=== PATIENT | female | born 1985 | race Caucasian/White ===

== ENCOUNTER 2016-04-04 20:33 | Emergency (ER) | payer MEDICAID ==
[~2016-04-04] VITALS: Ht 182.9 cm; Wt 149.7 kg
[~2016-04-04 20:33] MED LIST: AMOX500C2 PO; ARIP5TAB20 PO; ATOR10TA66 PO; AZIT-21 PO; CLONIDINE; CPR500T PO; DVL500TEC PO; HYDR-3816 PO; METR500T PO; QTP100T; TRZ100T PO; ZIPR40CA12 PO
--- OUTSIDE RECORDS SUMMARY | 2016-04-04 20:37 | XMS REPORT | Continuity of Care Document ---
Author Author [facility] Organization [facility] Address Unknown Phone Unavailable Care Team Providers Care Big Data Solutions Architect Name Role Phone CHAY ORDONEZ DO PCP Insurance Providers Payer Name Policy Number Subscriber Name Relationship [facility] [id number] Sveta Jaime 18 Self / Same As Patient Advance Directives Directive Response Recorded Date/Time Advance Directives No 07/07/14 8:16pm Resuscitation Status Full Code 07/07/14 8:16pm Problems Medical Problems Problem Onset Date Status Dental caries Unknown Active Gingivitis, acute Unknown Active Medications Medication Dose Route Sig Days/Qty Instructions Order Date Discontinued Date Status Divalproex Sodium 1 Each PO THREE TIMES A DAY 11/12/08 Active Quetiapine Fumarate 11/12/08 03/05/10 Discontinued [Clonidine] 11/12/08 03/05/10 Discontinued Azithromycin (Zpak) 0 PO Z-HARRISON 6 Qty 03/05/10 07/07/14 Discontinued Ciprofloxacin 1 Tab PO TWICE A DAY 7 Days 01/27/11 07/07/14 Discontinued Metronidazole 1 Each PO TWICE A DAY 7 Days 01/27/11 07/07/14 Discontinued Atorvastatin Calcium 1 Tab PO DAILY 30 Qty 07/07/14 Active Trazodone Hcl 1 Tab PO TWICE A DAY 60 Qty 07/07/14 Active Ziprasidone Hcl 1 Cap PO DAILY 30 Qty 07/07/14 Active Amoxicillin 1 Each PO THREE TIMES A DAY 21 Qty 07/07/14 Active Hydrocodone Bit/Acetaminophen 1 Tab PO EVERY 6 HOURS PRN PAIN 12 Qty Active Social History Social History Problem Response Recorded Date/Time Alcohol Use Denies Use 07/07/2014 8:16pm Recreational Drug Use No 07/07/2014 8:16pm Recent Foreign Travel No 07/07/2014 8:16pm Recent Infectious Disease Exposure No 07/07/2014 8:16pm Smoking Status Never a Smoker 07/07/2014 8:16pm Do you dip or chew tobacco? No 07/07/2014 8:16pm Query Response Start Date Stop Date Smoking Status Never a Smoker Hospital Discharge Instructions No hospital discharge instructions. Plan of Care No plan of care. Functional Status No functional status results. Allergies, Adverse Reactions, Alerts Allergen Type Severity Reaction Status Last Updated No Known Drug Allergies Active 11/12/08 Immunizations No immunization records. Vital Signs Acute Vital Signs Vital Response Date/Time Temperature (Fahrenheit) 99.4 degrees F (97.6 - 99.5) Temperature (Calculated Celsius) 37.61702 degrees C (36.4 - 37.5) Temperature Source Temporal Pulse Rate (adult) 122 bpm (60 - 90) Respiratory Rate 16 bpm (12 - 24) O2 Sat by Pulse Oximetry 97 % (88 - 100) Blood Pressure 156/103 mm Hg Pain Pain Intensity 6 Height (Feet) 6 feet Height (Inches) 0 inches Height (Calculated Centimeters) 182.044679 cm Weight (Pounds) 325 pounds Weight (Calculated Kilograms) 147.897595 kilograms Calculated BMI 44.07 Results No known relevant diagnostic tests, laboratory data and/or discharge summary. Procedures No known history of procedures. Encounters Encounter Location Date/Time Registered Emergency Room [facility] 07/07/14 7:50pm Recent Diagnosis
[2016-04-04 20:44] VITALS: BP 140/90
== END 2016-04-04 21:45 | disposition left against medical advice (07) ==
LOC: EDUNIT# 20:33 → ER 20:34
DX: R09.81 Nasal congestion (principal); F17.210 Nicotine dependence, cigarettes, uncomplicated; Z53.21 Procedure and treatment not carried out due to patient leaving prior to being seen by health care provider
CPT/HCPCS: 99282

== ENCOUNTER 2016-11-14 22:50 | Emergency (ER) | payer MEDICAID ==
[~2016-11-14] VITALS: Ht 182.9 cm; Wt 135.2 kg
--- OUTSIDE RECORDS SUMMARY | 2016-11-14 22:55 | XMS REPORT ---
Author Author LIDA ROMAN Organization [facility] Address [address] [place] [address] Care Team Providers Care Repairer Kiln Car Name Role Phone LIDA ROMAN Unavailable PROBLEMS Type Condition ICD9-CM Code [id number] Code Onset Dates Condition Status SNOMED Code Problem Bipolar disorder, unspecified F31.9 Active [id number] ALLERGIES Substance Reaction Event Type Date Status N.K.D.A. Unknown Non Drug Allergy Jan, Unknown SOCIAL HISTORY No smoking Hx information available PLAN OF CARE Activity Details Follow Up 4 Weeks Reason: VITAL SIGNS Height 72.0 in 2016 Weight 310.0 lbs 2016 Heart Rate 80 bpm 2016 Respiratory Rate 20 2016 BMI 42.04 kg/m2 2016 Blood pressure systolic 150 mmHg 2016 Blood pressure diastolic 99 mmHg 2016 MEDICATIONS Medication Instructions Dosage Frequency Start Date End Date Duration Status Abilify 5 mg Orally Once a day 1 tablet 24h Jan, Active RESULTS No Results PROCEDURES Procedure Date Ordered Related Diagnosis Body Site MH Office Visit, Est Pt., Level 3 2016 IMMUNIZATIONS No Known Immunizations
--- OUTSIDE RECORDS SUMMARY | 2016-11-14 22:55 | XMS REPORT | Continuity of Care Document ---
Author Author [facility] Organization [facility] Address Unknown Phone Unavailable Allergies Active Description Code Type Severity Reaction Onset Reported/Identified Relationship to Patient Clinical Status Yes No Known Drug Allergies [id number] Drug Allergy Mild N/A 11/12/2008 Medications Problems Date Dx Coded Attending Type Code Diagnosis Diagnosed By 03/05/2010 Ot 465.9 03/05/2010 Ot 786.2 01/27/2011 Ot 599.0 URIN TRACT INFECTION NOS 01/27/2011 Ot 789.00 ABDOMINAL PAIN, UNSPECIFIED SITE 01/22/2014 CHAY ORDONEZ DO Ot 296.80 01/22/2014 GELCHAY CHRISTENSEN DO Ot 780.39 07/07/2014 CHAY ORDONEZ DO Ot 296.80 07/07/2014 GELLENDER DOCHAY A Ot 780.39 07/07/2014 VAN ARMENTA, CRISELDA Aguilar Ot 521.00 UNSPEC DENTAL CARIES 07/07/2014 CRISELDA ARAUJO MD Ot 523.00 ACUTE GINGIVITIS, PLAQUE INDUCED 07/07/2014 CRISELDA ARAUJO MD Ot 525.9 DENTAL DISORDER NOS 02/12/2016 GELCHAY CHRISTENSEN DO Ot 296.80 BIPOLAR DISORDER, UNSPECIFIED 02/12/2016 GELCHAY CHRISTENSEN DO Ot 780.39 OTHER CONVULSIONS 02/12/2016 TONIA ARMENTA, FRANKY Vaz Ot M54.6 PAIN IN THORACIC SPINE 02/12/2016 TONIA ARMENTA, FRANKY T Ot Z87.891 PERSONAL HISTORY OF NICOTINE DEPENDENCE 02/13/2016 FRANKY RANDALL MD T Ot M54.6 PAIN IN THORACIC SPINE 02/13/2016 FRANKY RANDALL MD T Ot Z87.891 PERSONAL HISTORY OF NICOTINE DEPENDENCE 04/04/2016 JUVENCIO THOMAS Ot F17.210 NICOTINE DEPENDENCE, CIGARETTES, UNCOMPL 04/04/2016 JUVENCIO THOMAS Ot R09.81 NASAL CONGESTION 04/04/2016 JUVENCIO THOMAS Ot Z53.21 PROC/TRTMT NOT CRD OUT D/T PT LV BEF SEE 04/06/2016 JUVENCIO THOMAS Ot F17.210 NICOTINE DEPENDENCE, CIGARETTES, UNCOMPL 04/06/2016 JUVENCIO THOMAS Ot R09.81 NASAL CONGESTION 04/06/2016 JUVENCIO THOMAS Ot Z53.21 PROC/TRTMT NOT CRD OUT D/T PT LV BEF SEE Procedures Results Encounters ACCT No. Visit Date/Time Discharge Status Pt. Type Provider Facility Loc./Unit Complaint [id number] 04/04/2016 20:34:00 2016 21:45:00 DIS Emergency JUVENCIO THOMAS [facility] ER CONGESTION [id number] 02/12/2016 00:06:00 2015 02:30:00 DIS Emergency TONIA ARMENTA, FRANKY Vaz [facility] ER SHARP PAIN IN MIDDLE OF BACK [id number] 07/07/2014 19:50:00 2014 21:14:00 DIS Emergency VAN ARMENTA, CRISELDA Aguilar [facility] ER DENTAL PAIN [id number] 01/02/2014 09:02:00 2013 23:59:59 CLS Outpatient CHAY ORDONEZ DO [facility] LAB BIPOLAR [id number] 01/02/2014 09:02:00 Document Registration [id number] 01/27/2011 14:44:00 Document Registration [id number] 03/05/2010 12:39:00 Document Registration
[2016-11-14] MEDS ORDERED: KETOROLAC 60 MG/2 ML VIAL IM ONE (23:15)
[2016-11-14] MEDS ORDERED: ORPHENADRINE 60 MG/2 ML (NORFLEX) AMP IM ONE (23:15)
[2016-11-15] MEDS ORDERED: PRD20T PO (00:04)
[2016-11-15] MEDS ORDERED: CYCL10TA9 PO (00:04)
--- NOTE | 2016-11-15 00:04 | ED Back Pain ---
General Chief Complaint: Back Problems Stated Complaint: MID BACK PAIN Nursing Triage Note: PT C/O MID LOW BACK PAIN SINCE YESTERDAY. SHE DENIES ANY INJURY. Nursing Sepsis Screen: No Definite Risk Source of Information: Patient Exam Limitations: No Limitations History of Present Illness Time Seen by Provider: 22:51 Initial Comments This 31-year-old woman presents to the emergency room with complaints of lower back pain that started yesterday and has worsened night. She rates the pain as 9/10. She denies any known injury. No dysuria or other symptoms. She took 600 mg ibuprofen about 3 hours ago which was not very helpful. Allergies and Home Medications Allergies Coded Allergies: No Known Drug Allergies (Unverified , 11/12/08) Home Medications Cyclobenzaprine HCl 10 Mg Tablet, 10 MG PO TID PRN for SPASMS, #10 Prescribed by: FRANKY VINSON on 11/15/16 0004 Prednisone 20 Mg Tab, 20 MG PO DAILY, #3 Prescribed by: FRANKY VINSON on 11/15/16 0004 Constitutional: no symptoms reported EENTM: no symptoms reported Respiratory: no symptoms reported Cardiovascular: no symptoms reported Gastrointestinal: no symptoms reported Genitourinary: no symptoms reported : No Musculoskeletal: see HPI Skin: no symptoms reported Psychiatric/Neurological: No Symptoms Reported Past Fktihqr-Wulnud-Pbjjoo Hx Patient Social History Alcohol Use: Denies Use Recreational Drug Use: No Smoking Status: Former Smoker Type Used: Cigarettes Former Smoker, Quit: Nov 05, 2013 2nd Hand Smoke Exposure: No Recent Foreign Travel: No Contact w/Someone Who Travel: No Recent Infectious Disease Expo: No Recent Hopitalizations: No Physical Abuse: No Sexual Abuse: No Immunizations Up To Date Tetanus Booster (TDap): Unknown Seasonal Allergies Seasonal Allergies: No Surgeries History of Surgeries: No Respiratory History of Respiratory Disorde: Yes Respiratory Disorders: Asthma Cardiovascular History of Cardiac Disorders: Yes Cardiac Disorders: High Cholesterol Neurological History of Neurological Disord: No Neurological Disorders: Seizure Disorder Gastrointestinal History of Gastrointestinal Di: No Musculoskeletal History of Musculoskeletal Dis: No Endocrine History of Endocrine Disorders: No Cancer History of Cancer: No Psychosocial History of Psychiatric Problem: Yes Behavioral Health Disorders: Anxiety Suicide Risk Score: 0 Integumentary History of Skin or Integumenta: No Blood Transfusions History of Blood Disorders: No Adverse Reaction to a Blood Tr: No Family Medical History Significant Family History: No Pertinent Family Hx Physical Exam Vital Signs Vital Sign - Last 12Hours 11/14/16 23:04 Temp 97.2 Pulse 90 Resp 16 B/P (MAP) 168/89 O2 Delivery Room Air Capillary Refill : Less Than 3 Seconds General Appearance: No Apparent Distress, WD/WN HEENT: Normal ENT Inspection Neck: Normal Inspection Cardiovascular: Regular Rate, Rhythm, No Edema, No Murmur Respiratory: Lungs Clear, Normal Breath Sounds, No Accessory Muscle Use, No Respiratory Distress Gastrointestinal: Normal Bowel Sounds, Non Tender, Soft Back: Normal Inspection, Vertebral Tenderness (lower lumbar spine and right SI joint area) Extremity: Normal Inspection Neurologic/Psychiatric: Alert, Oriented x3, No Motor/Sensory Deficits, Normal Mood/Affect, behavioral health case manager II-XII Norm as Tested Skin: Normal Color, Warm/Dry Progress/Results/Core Measures Results/Orders My Orders Orders - FRANKY RANDALL MD Ketorolac Injection (Toradol Injection) (11/14/16 23:15) Orphenadrine Injection (Norflex Injectio (11/14/16 23:15) Medications Given in ED Current Medications Medications Dose Ordered Sig/Garth Route Start Time Stop Time Status Last Admin Dose Admin Ketorolac Tromethamine 60 mg ONCE ONCE IM 11/14/16 23:15 11/14/16 23:16 DC 11/14/16 23:26 60 MG Orphenadrine Citrate 60 mg ONCE ONCE IM 11/14/16 23:15 11/14/16 23:16 DC 11/14/16 23:25 60 MG Vital Signs/I&O Vital Sign - Last 12Hours 11/14/16 23:04 Temp 97.2 Pulse 90 Resp 16 B/P (MAP) 168/89 O2 Delivery Room Air Blood Pressure Mean: 115 Progress Note : Progress Note Patient received injections of Toradol and Norflex which reduced her pain to 5/ 10. She believes she cannot return home and rest. Departure Impression Impression: Primary Impression: Sacroiliac joint pain Additional Impression: Lower back pain Qualified Codes: M54.5 - Low back pain Disposition: 01 HOME, SELF-CARE Condition: Improved Departure-Patient Inst. Decision time for Depature: 00:02 Referrals: CHAY ORDONEZ DO (PCP/Family) Primary Care Physician Patient Instructions: Sacroiliac Joint Pain, Low Back Pain (DC) Add. Discharge Instructions: Tonight you may take Tylenol (acetaminophen) up to 1000 mg every 6 hours as needed. Tomorrow you may resume taking ibuprofen up to 800 mg every 8 hours as needed for pain along with the Tylenol. Fill your prescriptions for cyclobenzaprine and prednisone tomorrow if you have not improved satisfactorily. Follow-up with Dr. Ordonez if you have persistent problems. Return to the ER if symptoms worsen. All discharge instructions reviewed with patient and/or family. Voiced understanding. Scripts Cyclobenzaprine HCl (Cyclobenzaprine HCl) 10 Mg Tablet 10 MG PO TID Y for SPASMS, #10 TAB Prov: FRANKY RANDALL MD 11/15/16 Prednisone (Prednisone) 20 Mg Tab 20 MG PO DAILY, #3 TAB Prov: FRANKY RANDALL MD 11/15/16 FRANKY RANDALL MD Nov 15, 2016 00:04
[2016-11-15 00:07] VITALS: BP 168/89
== END 2016-11-15 00:07 | disposition home or self-care (01) ==
LOC: EDUNIT# 22:50 → ER 22:51
DX: M53.3 Sacrococcygeal disorders, not elsewhere classified (principal); M54.5 Low back pain; J45.909 Unspecified asthma, uncomplicated; E78.00 Pure hypercholesterolemia, unspecified; G40.909 Epilepsy, unspecified, not intractable, without status epilepticus; F41.9 Anxiety disorder, unspecified; Z87.891 Personal history of nicotine dependence
CPT/HCPCS: 96372; 99284

== ENCOUNTER 2017-03-14 12:26 | Emergency (ER) | payer MEDICAID ==
[~2017-03-14] VITALS: Ht 185.4 cm; Wt 158.8 kg
[~2017-03-14 12:26] MED LIST changes: +CYCL10TA9 PO; +PRD20T PO
--- OUTSIDE RECORDS SUMMARY | 2017-03-14 12:32 | XMS REPORT | Continuity of Care Document ---
Author Author [facility] Organization [facility] Address Unknown Phone Unavailable Allergies Active Description Code Type Severity Reaction Onset Reported/Identified Relationship to Patient Clinical Status Yes No Known Drug Allergies [id number] Drug Allergy Mild N/A 11/12/2008 Medications There is no data. Problems Date Dx Coded Attending Type Code Diagnosis Diagnosed By 03/05/2010 Ot 465.9 03/05/2010 Ot 786.2 01/27/2011 Ot 599.0 URIN TRACT INFECTION NOS 01/27/2011 Ot 789.00 ABDOMINAL PAIN, UNSPECIFIED SITE 01/22/2014 CHAY ORDONEZ DO Ot 296.80 01/22/2014 CHAY ORDONEZ DO Ot 780.39 07/07/2014 CHAY ORDONEZ DO Ot 296.80 07/07/2014 CHAY ORDONEZ DO Ot 780.39 07/07/2014 CRISELDA ARAUJO MD Ot 521.00 UNSPEC DENTAL CARIES 07/07/2014 CRISELDA ARAUJO MD Ot 523.00 ACUTE GINGIVITIS, PLAQUE INDUCED 07/07/2014 CRISELDA ARAUJO MD Ot 525.9 DENTAL DISORDER NOS 02/12/2016 CHAY ORDONEZ DO Ot 296.80 BIPOLAR DISORDER, UNSPECIFIED 02/12/2016 CHAY ORDONEZ DO Ot 780.39 OTHER CONVULSIONS 02/12/2016 FRANKY RANDALL MD Ot M54.6 PAIN IN THORACIC SPINE 02/12/2016 FRANKY RANDALL MD T Ot Z87.891 PERSONAL [...] CRD OUT D/T PT LV BEF SEE 11/14/2016 CHAY ORDONEZ DO Ot 296.80 BIPOLAR DISORDER, UNSPECIFIED 11/14/2016 CHAY ORDONEZ DO Ot 780.39 OTHER CONVULSIONS 11/15/2016 TONIA ARMENTA, FRANKY Vaz Ot E78.00 PURE HYPERCHOLESTEROLEMIA, UNSPECIFIED 11/15/2016 FRANKY RANDALL MD Ot F41.9 ANXIETY DISORDER, UNSPECIFIED 11/15/2016 FRANKY RANDALL MD Ot G40.909 EPILEPSY, UNSP, NOT INTRACTABLE, WITHOUT 11/15/2016 TONIA ARMENTA, FRANKY Vaz Ot J45.909 UNSPECIFIED ASTHMA, UNCOMPLICATED 11/15/2016 FRANKY RANDALL MD Ot M53.3 SACROCOCCYGEAL DISORDERS, NOT ELSEWHERE 11/15/2016 FRANKY RANDALL MD Ot M54.5 LOW BACK PAIN 11/15/2016 FRANKY RANDALL MD Ot Z87.891 PERSONAL HISTORY OF NICOTINE DEPENDENCE Procedures There is no data. Results There is no data. Encounters ACCT No. Visit Date/Time Discharge Status Pt. Type Provider Facility Loc./Unit Complaint [id number] 11/14/2016 22:51:00 11/15/2016 00:07:00 DIS Emergency FRNAKY RANDALL MD [facility] ER MID BACK PAIN [id number] 04/04/2016 20:34:00 04/04/2016 21:45:00 DIS Emergency JUVENCIO THOMAS [facility] ER CONGESTION [id number] 02/12/2016 00:06:00 02/12/2016 02:30:00 DIS Emergency FRANKY RANDALL MD [facility] ER SHARP PAIN IN MIDDLE OF BACK [id number] 07/07/2014 19:50:00 07/07/2014 21:14:00 DIS Emergency CRISELDA ARAUJO MD [facility] ER DENTAL PAIN [id number] 01/02/2014 09:02:00 01/02/2014 23:59:59 [facility] Outpatient CHAY ORDONEZ DO [facility] LAB BIPOLAR [id number] 01/02/2014 09:02:00 Document Registration [id number] 01/27/2011 14:44:00 Document Registration [id number] 03/05/2010 12:39:00 Document Registration
--- NOTE | 2017-03-14 14:44 | ED Cough/URI ---
General Chief Complaint: Fever-Adult/Adol Stated Complaint: FEVER HEADACHE Nursing Triage Note: PATIENT STATES SHE HAS HAD A FEVER OF 99.0 AND HEADACHE X3 DAYS. SHE HAS ALSO HAD A COUGH AND RUNNY NOSE. NO OTHER SYMPTOMS. NO CHILLS. Source: patient Exam Limitations: no limitations History of Present Illness Date Seen by Provider: Mar 14, 2017 Time Seen by Provider: 14:42 Initial Comments To ER with reports of low-grade fevers, headaches worsened by coughing, productive cough, runny nose for a few days. Timing/Duration: just prior to arrival Severity/Quality: moderate Associated Symptoms: cough Allergies and Home Medications Allergies Coded Allergies: No Known Drug Allergies (Unverified , 11/12/08) Home Medications Cyclobenzaprine HCl 10 Mg Tablet, 10 MG PO TID PRN for SPASMS, #10 Prescribed by: FRANKY VINSON on 11/15/16 0004 Prednisone 20 Mg Tab, 20 MG PO DAILY, #3 Prescribed by: FRANKY VINSON on 11/15/16 0004 Constitutional: see HPI EENTM: see HPI, nose congestion Respiratory: see HPI, cough Cardiovascular: no symptoms reported Genitourinary: no symptoms reported Skin: no symptoms reported Psychiatric/Neurological: No Symptoms Reported Past Pfdufnw-Cushlp-Duwswd Hx Patient Social History Alcohol Use: Denies Use Recreational Drug Use: No Smoking Status: Never a Smoker Type Used: Cigarettes Former Smoker, Quit: Nov 05, 2013 2nd Hand Smoke Exposure: No Recent Foreign Travel: No Contact w/Someone Who Travel: No Recent Infectious Disease Expo: No Recent Hopitalizations: No Immunizations Up To Date Tetanus Booster (TDap): Unknown Seasonal Allergies Seasonal Allergies: No Surgeries History of Surgeries: No Respiratory History of Respiratory Disorde: Yes Respiratory Disorders: Asthma Cardiovascular History of Cardiac Disorders: Yes Cardiac Disorders: High Cholesterol Neurological History of Neurological Disord: No Neurological Disorders: Seizure Disorder Gastrointestinal History of Gastrointestinal Di: No Musculoskeletal History of Musculoskeletal Dis: No Endocrine History of Endocrine Disorders: No Cancer History of Cancer: No Psychosocial History of Psychiatric Problem: Yes Behavioral Health Disorders: Anxiety Integumentary History of Skin or Integumenta: No Blood Transfusions History of Blood Disorders: No Adverse Reaction to a Blood Tr: No Family Medical History Significant Family History: No Pertinent Family Hx Physical Exam Vital Signs Vital Sign - Last 12Hours 03/14/17 03/14/17 12:41 14:45 Temp 98.5 Pulse 83 Resp 20 B/P (MAP) 138/79 (98) Pulse Ox 96 O2 Delivery Room Air Capillary Refill : Less Than 3 Seconds General Appearance: WD/WN, no apparent distress Eyes: Bilateral Eye Normal Inspection, Bilateral Eye PERRL, Bilateral Eye EOMI HEENT: PERRL/EOMI, normal ENT inspection Neck: non-tender, full range of motion Respiratory: normal breath sounds, no respiratory distress, no accessory muscle use Cardiovascular: regular rate, rhythm, no murmur Gastrointestinal: non tender, soft Extremities: normal range of motion, non-tender Neurologic/Psychiatric: alert, normal mood/affect, oriented x 3 Skin: normal color, warm/dry Progress/Results/Core Measures Suspected Sepsis Recent Fever Within 48 Hours: No Infection Criteria Present: None New/Unexplained Altered Menta: No Sepsis Screen: No Definite Risk Sepsis Diagnosis: SIRS Temperature:98.5 Pulse: 83 Respiratory Rate: 20 Blood Pressure 138 /79 Mean: 98 Results/Orders Micro Results Microbiology 03/14/17 Influenza Types A,B Antigen (ELIZABETH) - Final, Complete My Orders Orders - AVERY TORRES APRN Chest Pa/Lat (2 View) (03/14/17 14:27) Influenza A And B Antigens (03/14/17 14:27) Albuterol/Ipra Inhalation Soln (Duoneb I (03/14/17 14:45) Svn Sm Volume Nebulizer Rt-Rfs (03/14/17 14:41) Medications Given in ED Current Medications Medications Dose Ordered Sig/Garth Route Start Time Stop Time Status Last Admin Dose Admin Albuterol/ Ipratropium 3 ml ONCE ONCE INH 03/14/17 14:45 03/14/17 14:46 DC 03/14/17 14:52 3 ML Vital Signs/I&O Vital Sign - Last 12Hours 03/14/17 03/14/17 12:41 14:45 Temp 98.5 Pulse 83 Resp 20 B/P (MAP) 138/79 (98) Pulse Ox 96 O2 Delivery Room Air Capillary Refill : Less Than 3 Seconds Blood Pressure Mean: 98 Departure Impression Impression: Primary Impression: Upper respiratory infection Disposition: 01 HOME, SELF-CARE Condition: Stable Departure-Patient Inst. Decision time for Depature: 15:50 Referrals: CHAY ORDONEZ DO (PCP/Family) Primary Care Physician Patient Instructions: VIRAL SYNDROME Add. Discharge Instructions: 1. Tylenol and Motrin for fever and chills 2. Cough medication as directed Scripts D-Methorphan Hb/P-Epd HCl/Bpm (Bromfed Dm Cough Syrup) 118 Ml Syrup 5 ML PO Q4H Y for COUGH, #100 ML Prov: AVERY TORRES APRN 03/14/17 AVERY TORRES APRN Mar 14, 2017 14:44
[2017-03-14] MEDS ORDERED: RT-ALBUTEROL/IPRATROPIUM 3 ML (DUONEB) VIAL INH ONE (14:45)
--- NOTE | 2017-03-14 15:34 | Diagnostic Imaging Report ---
INDICATION: Fever and headache. TIME OF EXAM: 03:33 p.m. COMPARISON: No prior studies are available for comparison. FINDINGS: The heart size is normal. The lungs are clear. No pleural effusion or pneumothorax is identified. The pulmonary vascularity is normal. IMPRESSION: No acute abnormality detected. Dictated by: Dictated on workstation # [id number]
[2017-03-14 15:50] VITALS: BP 138/79
[2017-03-14] MEDS ORDERED: D-ME118S33 PO (15:51)
== END 2017-03-14 15:53 | disposition home or self-care (01) ==
LOC: EDUNIT# 12:26 → ER 12:28
DX: J06.9 Acute upper respiratory infection, unspecified (principal); J45.909 Unspecified asthma, uncomplicated; E78.00 Pure hypercholesterolemia, unspecified; G40.909 Epilepsy, unspecified, not intractable, without status epilepticus; F41.9 Anxiety disorder, unspecified; Z77.22 Contact with and (suspected) exposure to environmental tobacco smoke (acute) (chronic)
CPT/HCPCS: 71046; 87804; 94640; 99282

== ENCOUNTER 2017-08-05 15:03 | Emergency (ER) | payer MEDICAID ==
[~2017-08-05] VITALS: Ht 185.4 cm; Wt 158.8 kg
[~2017-08-05 15:03] MED LIST changes: +D-ME118S33 PO
[2017-08-05] MEDS ORDERED: KETOROLAC 60 MG/2 ML VIAL IM STA (15:48)
[2017-08-05] MEDS ORDERED: HYDROcodone/APAP 7.5 MG/325 MG (LORTAB, LORCET PLUS) TABLET PO STA (15:48)
[2017-08-05] MEDS ORDERED: ORPHENADRINE 60 MG/2 ML (NORFLEX) AMP IM STA (15:48)
--- NOTE | 2017-08-05 15:56 | ED Neck-Back Pain/Injury ---
General Chief Complaint: Upper Extremity Stated Complaint: R SHOULDER/NECK PAIN Nursing Triage Note: COMPLAINT OF SHOULDER PAIN RADIATING UP INTO NECK. PT CAN NOT MOVE NECK. Nursing Sepsis Screen: No Definite Risk Source of Information: Patient Exam Limitations: No Limitations History of Present Illness Date Seen by Provider: Aug 05, 2017 Time Seen by Provider: 15:40 Initial Comments Here with complaint of muscular pain from the right shoulder and neck area on the right side. She has a variety of different muscle pains along her back and neck. This one has been a little bit more persistent. She is currently out of her muscle relaxers. Denies any recent injury. Onset yesterday. She has taken ibuprofen 800 mg and that is not helping with the last dose this morning. Denies fever or chills. Denies nausea or vomiting. Location: Paraspinous Muscles (right side of the neck) Timing/Duration: 24 Hours Severity: Moderate Pain/Injury Location: Neck Modifying Factors: Improves With Immobilization; Worse With Movement Associated Symptoms: muscle spasms; No fever, No weakness, No sensory/motor loss Allergies and Home Medications Allergies Coded Allergies: No Known Drug Allergies (Unverified , 11/12/08) Home Medications Cyclobenzaprine HCl 10 Mg Tablet, 10 MG PO TID PRN for SPASMS Prescribed by: FRANKY VINSON on 11/15/16 0004 D-Methorphan Hb/P-Epd HCl/Bpm 118 Ml Syrup, 5 ML PO Q4H PRN for COUGH Prescribed by: AVERY TORRES on 03/14/17 1551 Prednisone 20 Mg Tab, 20 MG PO DAILY Prescribed by: FRANKY VINSON on 11/15/16 0004 Patient Home Medication List Home Medication List Reviewed: Yes Constitutional: see HPI; No chills, No fever Respiratory: No short of breath, No wheezing Cardiovascular: No chest pain, No edema Gastrointestinal: No abdominal pain, No nausea, No vomiting Genitourinary: no symptoms reported Musculoskeletal: see HPI, muscle pain, muscle stiffness; No muscle weakness; neck pain Skin: no symptoms reported Psychiatric/Neurological: Denies Numbness, Denies Tremors, Denies Weakness All Other Systems Reviewed Negative Unless Noted: Yes Past Sbzsund-Nfrxom-Icmvei Hx Past Med/Social Hx: Reviewed Nursing Past Med/Soc Hx Patient Social History Alcohol Use: Denies Use Recreational Drug Use: No Smoking Status: Current Everyday Smoker Type Used: Cigarettes Former Smoker, Quit: Nov 05, 2013 2nd Hand Smoke Exposure: No Recent Foreign Travel: No Contact w/Someone Who Travel: No Recent Infectious Disease Expo: No Recent Hopitalizations: No Immunizations Up To Date Tetanus Booster (TDap): Unknown Seasonal Allergies Seasonal Allergies: No Past Medical History Surgeries: No Respiratory: Yes Asthma Cardiac: Yes High Cholesterol Neurological: No Seizure Disorder : No Gastrointestinal: No Musculoskeletal: No Endocrine: No Cancer: No Psychosocial: Yes Anxiety Integumentary: No Blood Disorders: No Adverse Reaction/Blood Tranf: No Family Medical History Reviewed Nursing Family Hx No Pertinent Family Hx Physical Exam Vital Signs Vital Signs - First Documented 08/05/17 15:12 Temp 99.4 Pulse 85 Resp 20 B/P (MAP) 161/98 (119) Pulse Ox 97 O2 Delivery Room Air Capillary Refill : NONE General Appearance: No Apparent Distress, WD/WN Neck: Limited Range of Motion; No Lymphadenopathy (L), No Lymphadenopathy (R); Tender Lateral; No Tender Midline; Other (tender along the musculature on the right side of the neck and the base of the skull to the shoulder attachment. Spasms noted.) Cardiovascular: Regular Rate, Rhythm, No Murmur Respiratory: Lungs Clear, Normal Breath Sounds Gastrointestinal: Non Tender, Soft Back: Normal Inspection, No CVA Tenderness, No Vertebral Tenderness Neurologic/Psychiatric: Alert, Oriented x3 Skin: Normal Color, Warm/Dry Progress/Results/Core Measures Results/Orders My Orders Orders - CRISELDA ARAUJO MD Hydrocodone/Apap 7.5/325 Tab (Lortab 7. (08/05/17 15:48) Ketorolac Injection (Toradol Injection) (08/05/17 15:48) Orphenadrine Injection (Norflex Injectio (08/05/17 15:48) Vital Signs/I&O 08/05/17 15:12 Temp 99.4 Pulse 85 Resp 20 B/P (MAP) 161/98 (119) Pulse Ox 97 O2 Delivery Room Air Blood Pressure Mean: 119 Progress Progress Note : Progress Note Seen and evaluated. Toradol 60 mg IM, Norflex 60 mg IM and hydrocodone 7.5 mg by mouth. Discharged home with return precautions. Patient verbalize understanding instructions and agreement with plan. Departure Impression Primary Impression: Cervical radiculopathy, acute Additional Impression: Cervical muscle strain Qualified Codes: S16.1XXA - Strain of muscle, fascia and tendon at neck level , initial encounter Disposition: 01 HOME, SELF-CARE Condition: Stable Admissions Decision to Admit Reason: Admit from ER (General) Decision to Admit/Date: Aug 05, 2017 Time/Decision to Admit Time: 16:07 Departure-Patient Inst. Referrals: CHAY ORDONEZ DO (PCP/Family) Primary Care Physician Patient Instructions: Cervical Muscle Strain (DC), Radiculopathy (DC) Add. Discharge Instructions: All discharge instructions reviewed with patient and/or family. Voiced understanding. You may continue ibuprofen 800 mg every 8 hours as needed for pain. You may take Tylenol 1000 mg every 8 hours as needed for pain. Take prescribed medications as directed. Follow-up with Dr. Ordonez on Tuesday. Return for worse pain, fever, vomiting, weakness, breathing problems or other concerns as needed. Scripts Cyclobenzaprine HCl (Cyclobenzaprine HCl) 10 Mg Tablet 10 MG PO Q8H PRN for SPASMS, #15 TAB 0 Refills Prov: CRISELDA ARAUJO MD 08/05/17 CRISELDA ARAUJO MD Aug 05, 2017 15:55
[2017-08-05] MEDS ORDERED: CYCL10TA9 PO (16:09)
[2017-08-05 16:16] VITALS: BP 161/98
== END 2017-08-05 16:17 | disposition home or self-care (01) ==
LOC: EDUNIT# 15:03 → ER 15:04
DX: S16.1XXA Strain of muscle, fascia and tendon at neck level, initial encounter (principal); M54.12 Radiculopathy, cervical region; J45.909 Unspecified asthma, uncomplicated; E78.00 Pure hypercholesterolemia, unspecified; F41.9 Anxiety disorder, unspecified; G40.909 Epilepsy, unspecified, not intractable, without status epilepticus; Z87.891 Personal history of nicotine dependence; Z79.52 Long term (current) use of systemic steroids; X58.XXXA Exposure to other specified factors, initial encounter
CPT/HCPCS: 99282

== ENCOUNTER 2017-12-05 12:52 | Emergency (ER) | payer MEDICAID ==
[~2017-12-05] VITALS: Ht 182.9 cm; Wt 113.4 kg
--- OUTSIDE RECORDS SUMMARY | 2017-12-05 12:58 | XMS REPORT | Continuity of Care Document ---
Author Author [facility] Organization [facility] Address Unknown Phone Unavailable Allergies Active Description Code Type Severity Reaction Onset Reported/Identified Relationship to Patient Clinical Status Yes No Known Drug Allergies [id number] Drug Allergy Mild N/A 11/12/2008 Medications There [...] BIPOLAR DISORDER, UNSPECIFIED 11/14/2016 CHAY ORDONEZ DO A Ot 780.39 OTHER CONVULSIONS 11/15/2016 TONIA ARMENTA, FRANKY Vaz Ot E78.00 PURE HYPERCHOLESTEROLEMIA, UNSPECIFIED 11/15/2016 TONIA ARMENTA, FRANKY Vaz Ot F41.9 ANXIETY DISORDER, UNSPECIFIED 11/15/2016 TONIA ARMENTA, FRANKY Vaz Ot G40.909 EPILEPSY, UNSP, NOT INTRACTABLE, WITHOUT 11/15/2016 TONIA ARMENTA, FRANKY Vaz Ot J45.909 UNSPECIFIED ASTHMA, UNCOMPLICATED 11/15/2016 TONIA ARMENTA, FRANKY Vaz Ot M53.3 SACROCOCCYGEAL DISORDERS, NOT ELSEWHERE 11/15/2016 TONIA ARMENTA, FRANKY Vaz Ot M54.5 LOW BACK PAIN 11/15/2016 TONIA ARMENTA, FRANKY T Ot Z87.891 PERSONAL HISTORY OF NICOTINE DEPENDENCE 03/14/2017 AVERY TORRES APRN Ot E78.00 PURE HYPERCHOLESTEROLEMIA, UNSPECIFIED 03/14/2017 AVERY TORRES APRN Ot F41.9 ANXIETY DISORDER, UNSPECIFIED 03/14/2017 AVERY TORRES APRN Ot G40.909 EPILEPSY, UNSP, NOT INTRACTABLE, WITHOUT 03/14/2017 AVEYR TORRES APRN Ot J06.9 ACUTE UPPER RESPIRATORY INFECTION, UNSPE 03/14/2017 AVERY TORRES APRN Ot J45.909 UNSPECIFIED ASTHMA, UNCOMPLICATED 03/14/2017 AVERY TORRES APRN Ot R50.9 FEVER, UNSPECIFIED 03/14/2017 AVERY TORRES APRN Ot Z77.22 CNTCT W AND EXPSR TO ENVIRON TOBACCO SMO 03/16/2017 AVERY TORRES VALVE TECHNICIAN Ot E78.00 PURE HYPERCHOLESTEROLEMIA, UNSPECIFIED 03/16/2017 AVERY TORRES VALVE TECHNICIAN Ot F41.9 ANXIETY DISORDER, UNSPECIFIED 03/16/2017 AVERY TORRES VALVE TECHNICIAN Ot G40.909 EPILEPSY, UNSP, NOT INTRACTABLE, WITHOUT 03/16/2017 AVERY TORRES VALVE TECHNICIAN Ot J06.9 ACUTE UPPER RESPIRATORY INFECTION, UNSPE 03/16/2017 AVERY TORRES VALVE TECHNICIAN Ot J45.909 UNSPECIFIED ASTHMA, UNCOMPLICATED 03/16/2017 AVERY TORRES VALVE TECHNICIAN Ot R50.9 FEVER, UNSPECIFIED 03/16/2017 AVERY TORRES VALVE TECHNICIAN Ot Z77.22 CNTCT W AND EXPSR TO ENVIRON TOBACCO SMO 08/05/2017 CRISELDA ARAUJO MD Ot E78.00 PURE HYPERCHOLESTEROLEMIA, UNSPECIFIED 08/05/2017 CRISELDA ARAUJO MD Ot F41.9 ANXIETY DISORDER, UNSPECIFIED 08/05/2017 CRISELDA ARAUJO MD Ot G40.909 EPILEPSY, UNSP, NOT INTRACTABLE, WITHOUT 08/05/2017 CRISELDA ARAUJO MD Ot J45.909 UNSPECIFIED ASTHMA, UNCOMPLICATED 08/05/2017 CRISELDA ARAUJO MD Ot M54.12 RADICULOPATHY, CERVICAL REGION 08/05/2017 CRISELDA ARAUJO MD Ot M54.2 CERVICALGIA 08/05/2017 CRISELDA ARAUJO MD Ot S16.1XXA STRAIN OF MUSCLE, FASCIA AND TENDON AT N 08/05/2017 CRISELDA ARAUJO MD Ot X58.XXXA EXPOSURE TO OTHER SPECIFIED FACTORS, INI 08/05/2017 CRISELDA ARAUJO MD Ot Z79.52 USP (CURRENT) USE OF SYSTEMIC STER 08/05/2017 CRISELDA ARAUJO MD Ot Z87.891 PERSONAL HISTORY OF NICOTINE DEPENDENCE 08/08/2017 CRISELDA ARAUJO MD Ot E78.00 PURE HYPERCHOLESTEROLEMIA, UNSPECIFIED 08/08/2017 CRISELDA ARAUJO MD Ot F41.9 ANXIETY DISORDER, UNSPECIFIED 08/08/2017 CRISELDA ARAUJO MD Ot G40.909 EPILEPSY, UNSP, NOT INTRACTABLE, WITHOUT 08/08/2017 CRISELDA ARAUJO MD Ot J45.909 UNSPECIFIED ASTHMA, UNCOMPLICATED 08/08/2017 CRISELDA ARAUJO MD Ot M54.12 RADICULOPATHY, CERVICAL REGION 08/08/2017 CRISELDA ARAUJO MD Ot M54.2 CERVICALGIA 08/08/2017 CRISELDA ARAUJO MD Ot S16.1XXA STRAIN OF MUSCLE, FASCIA AND TENDON AT N 08/08/2017 CRISELDA ARAUJO MD Ot X58.XXXA EXPOSURE TO OTHER SPECIFIED FACTORS, INI 08/08/2017 CRISELDA ARAUJO MD Ot Z79.52 USP (CURRENT) USE OF SYSTEMIC STER 08/08/2017 CRISELDA ARAUJO MD Ot Z87.891 PERSONAL HISTORY OF NICOTINE DEPENDENCE 08/10/2017 JOSÉ LUIS LUTHER CHAY Nitish Ot M25.511 PAIN IN RIGHT SHOULDER 08/10/2017 JOSÉ LUIS LUTHER, CHAY Talbert Ot M54.2 CERVICALGIA 08/25/2017 JOSÉ LUIS LUTHERCHAY Ot M25.511 PAIN IN RIGHT SHOULDER 08/25/[address] [address] Talbert Ot M54.2 CERVICALGIA Procedures There is no data. Results Test Result Range Influenza virus A and B antigen detection - 03/14/17 14:07 FLU RESULT NEGATIVE FOR INFLUENZA A AND B ANTIGENS BY IA NRG Encounters ACCT No. Visit Date/Time Discharge Status Pt. Type Provider Facility Loc./Unit Complaint [id number] 08/09/2017 16:29:00 08/09/2017 23:59:59 CLS Outpatient JOSÉ LUIS LUTHER CHAY Nitish [facility] RAD NECK PAIN GOES TO RIGHT SHOULDER [id number] 08/05/2017 15:04:00 08/05/2017 16:17:00 DIS Emergency CRISELDA ARAUJO MD [facility] ER R SHOULDER/NECK PAIN [id number] 03/14/2017 12:28:00 03/14/2017 15:53:00 DIS Emergency AVERY TORRES APRN [facility] ER FEVER HEADACHE [id number] 11/14/2016 22:51:00 11/15/2016 00:07:00 DIS Emergency FRANKY RANDALL MD [facility] ER MID BACK PAIN [id number] 04/04/2016 20:34:00 04/04/2016 21:45:00 DIS Emergency ASIM RODRIGUEZ, JUVENCIO Sánchez [facility] ER CONGESTION [id number] 02/12/2016 00:06:00 02/12/2016 02:30:00 DIS Emergency TONIA ARMENTA, FRANKY Vaz [facility] ER SHARP PAIN IN MIDDLE OF BACK [id number] 07/07/2014 19:50:00 07/07/2014 21:14:00 DIS Emergency CRISELDA ARAUJO MD [facility] ER DENTAL PAIN [id number] 01/02/2014 09:02:00 01/02/2014 23:59:59 [facility] Outpatient CHAY ORDONEZ DO [facility] LAB BIPOLAR [id number] 01/02/2014 09:02:00 Document Registration [id number] 01/27/2011 14:44:00 Document Registration [id number] 03/05/2010 12:39:00 Document Registration [email or web address] 07/08/2014 02:21:36 ACT Document Registration
[2017-12-05] MEDS ORDERED: OXYMETAZOLINE (AFRIN) 0.05% NA 15 ML BTL ONE (13:21)
--- NOTE | 2017-12-05 13:25 | ED EENT ---
History of Present Illness General Stated Complaint: NOSE BLEED Source: patient Exam Limitations: no limitations History of Present Illness Date Seen by Provider: Dec 05, 2017 Time Seen by Provider: 13:23 Initial Comments To ER with left-sided nosebleed that began 2 hours prior to arrival. No history of this. She is recently had a cough but no sneezing runny nose. No facial trauma. No anticoagulant use. Timing/Duration: abrupt Severity: moderate Location: nose Allergies and Home Medications Allergies Coded Allergies: No Known Drug Allergies (Unverified , 11/12/08) Home Medications Cyclobenzaprine HCl 10 Mg Tablet, 10 MG PO TID PRN for SPASMS Prescribed by: FRANKY VINSON on 11/15/16 0004 Cyclobenzaprine HCl 10 Mg Tablet, 10 MG PO Q8H PRN for SPASMS Prescribed by: CRISELDA ARAUJO on 08/05/17 1609 D-Methorphan Hb/P-Epd HCl/Bpm 118 Ml Syrup, 5 ML PO Q4H PRN for COUGH Prescribed by: AVERY TORRES on 03/14/17 1551 Prednisone 20 Mg Tab, 20 MG PO DAILY Prescribed by: FRANKY VINSON on 11/15/16 0004 Patient Home Medication List Home Medication List Reviewed: Yes Review of Systems Review of Systems Constitutional: see HPI Eyes: No Symptoms Reported Ears: No Symptoms Reported Nose: see HPI, clots, epistaxis Mouth: no symptoms reported Throat: no symptoms reported Respiratory: no symptoms reported Cardiovascular: no symptoms reported Past Eedqdaz-Lhtkts-Bzmrtp Hx Patient Social History Type Used: Cigarettes Former Smoker, Quit: Nov 05, 2013 2nd Hand Smoke Exposure: No Recent Hopitalizations: No Immunizations Up To Date Tetanus Booster (TDap): Unknown Seasonal Allergies Seasonal Allergies: No Past Medical History Surgeries: No Respiratory: Yes Asthma Cardiac: Yes High Cholesterol Neurological: No Seizure Disorder Gastrointestinal: No Musculoskeletal: No Endocrine: No Cancer: No Psychosocial: Yes Anxiety Integumentary: No Blood Disorders: No Adverse Reaction/Blood Tranf: No Family Medical History No Pertinent Family Hx Physical Exam Vital Signs Vital Signs - First Documented 12/05/17 13:06 Temp 97.6 Pulse 80 Resp 20 B/P (MAP) 177/123 (141) Pulse Ox 99 O2 Delivery Room Air Height, Weight, BMI Height: 6'1.00" Weight: 350lbs. 0oz. 158.106700zx; 44.07 BMI Method:Estimated General Appearance: WD/WN, no apparent distress Eyes: bilateral eye normal inspection, bilateral eye PERRL, bilateral eye EOMI Ears: bilateral ear auricle normal, bilateral ear canal normal, bilateral ear TM normal Nose: active bleeding Neck: non-tender, full range of motion Respiratory: no respiratory distress, no accessory muscle use Gastrointestinal: normal bowel sounds, non tender Neurologic/Psychiatric: alert, normal mood/affect, oriented x 3 Skin: normal color, warm/dry Progress/Results/Core Measures Results/Orders My Orders Orders - AVERY TORRES APRN Clonidine Tablet (Catapres Tablet) (12/05/17 13:30) Alprazolam Tablet (Xanax Tablet) (12/05/17 13:30) Oxymetazoline 0.05% Nasal [place] (Afrin 0. (12/05/17 21:00) Medications Given in ED Current Medications Medications Dose Ordered Sig/Garth Route Start Time Stop Time Status Last Admin Dose Admin Alprazolam 0.25 mg ONCE ONCE PO 12/05/17 13:30 12/05/17 13:31 DC 12/05/17 13:30 0.25 MG Clonidine HCl 0.1 mg ONCE ONCE PO 12/05/17 13:30 12/05/17 13:31 DC 12/05/17 13:30 0.1 MG Vital Signs/I&O 12/05/17 12/05/17 13:06 14:49 Temp 97.6 97.6 Pulse 80 93 Resp 20 20 B/P (MAP) 177/123 (141) 120/99 (106) Pulse Ox 99 99 O2 Delivery Room Air Departure Communication (Admissions) 1315-Active bleeding from the left nostril but I'm unable to pinpoint the source. Does not appear to be from the anterior septum as would be most common. SHe does have blood slowly running down the back of the throat. She is quite hypertensive at 180/120. I did attempt to place a 7.5 semi-her posterior rapid Rhino but the patient began screaming after this was inserted about 1- 2 cm And was completely intolerant of this. We will try Afrin up the nose, however pinch her nose leaning forward clonidine and Xanax for blood pressure and anxiety control. 1320-nasal clamp has been applied after instillation of afrin. 1345- no bleeding in the oropharynx 1617-Nose clamp has been removed. No blood in oropharynx or from nose at this time. Will observe. 1640-no blood in oropharynx or from either nostril. BP 130/80s. Will dc to home. Impression Primary Impression: Epistaxis Disposition: HOME, SELF-CARE Condition: Stable Departure-Patient Inst. Decision time for Depature: 14:26 Referrals: DRAKE TIWARI MD, RICHARD A DO (PCP/Family) Primary Care Physician Patient Instructions: Nosebleeds (DC) Add. Discharge Instructions: 1. No blowing your nose for one week. Call Dr Tiwari to make an appointment to be seen. AVERY TORRES APRN Dec 05, 2017 13:25
[2017-12-05] MEDS ORDERED: cloNIDine 0.1 MG (CATAPRES) TAB PO ONE (13:30)
[2017-12-05] MEDS ORDERED: ALPRAZolam 0.25 MG (XANAX) TAB PO ONE (13:30)
[2017-12-05 14:49] VITALS: BP 120/99
[2017-12-05] MEDS ORDERED: OXYMETAZOLINE (AFRIN) 0.05% NA 15 ML BTL SCH (21:00)
== END 2017-12-05 14:49 | disposition home or self-care (01) ==
LOC: EDUNIT# 12:52 → ER 12:54
DX: R04.0 Epistaxis (principal); J45.909 Unspecified asthma, uncomplicated; E78.00 Pure hypercholesterolemia, unspecified; G40.909 Epilepsy, unspecified, not intractable, without status epilepticus; F41.9 Anxiety disorder, unspecified; Z79.52 Long term (current) use of systemic steroids; Z87.891 Personal history of nicotine dependence

== ENCOUNTER 2018-03-09 18:25 | Emergency (ER) | payer MEDICAID | END 2018-03-09 19:16 | disposition home or self-care (01) | LOC: ER 18:25 ==

== ENCOUNTER 2018-09-13 01:28 | Emergency (ER) | payer MEDICAID ==
[~2018-09-13] VITALS: Ht 182.9 cm; Wt 104.3 kg
[~2018-09-13 01:28] MED LIST changes: +CEPH-507 PO; +NAPR-1071 PO
[2018-09-13] MEDS ORDERED: RT-ALBUTEROL SULF 2.5 MG/3 ML PRE-MIX VIAL INH STA (01:36)
--- NOTE | 2018-09-13 01:43 | ED Cough/URI ---
General Chief Complaint: Respiratory Problems Stated Complaint: SOB Source: patient Exam Limitations: no limitations History of Present Illness Date Seen by Provider: Sep 13, 2018 Time Seen by Provider: 01:25 Initial Comments Patient presents to ER by EMS with chief complaint she woke up tonight feeling very short of breath. She says she has a history of asthma however she has not had an exacerbation over 2 years and therefore she does not have a inhaler. She sees Dr. Ordonez. She was 96% on room air and fire put oxygen on her which brought her up to 99-100%. She had some increased work of breathing. The patient says the past several days she's had runny nose ears feeling full underwater and sneezing and coughing without productive cough. She denies fevers chills. She takes lisinopril for high blood. Allergies and Home Medications Allergies Coded Allergies: No Known Drug Allergies (Unverified , 11/12/08) Home Medications Cephalexin 500 Mg Capsule, 500 MG PO QID Prescribed by: AVERY TORRES on 03/09/18 185 Cyclobenzaprine HCl 10 Mg Tablet, 10 MG PO TID PRN for SPASMS Prescribed by: FRANKY VINSON on 11/15/16 0004 Cyclobenzaprine HCl 10 Mg Tablet, 10 MG PO Q8H PRN for SPASMS Prescribed by: CRISELDA ARAUJO on 08/05/17 1609 D-Methorphan Hb/P-Epd HCl/Bpm 118 Ml Syrup, 5 ML PO Q4H PRN for COUGH Prescribed by: AVERY TORRES on 03/14/17 1551 Naproxen 500 Mg Tablet, 500 MG PO BID PRN for PAIN-MODERATE TO SEVERE Prescribed by: AVERY TORRES on 03/09/18 185 Prednisone 20 Mg Tab, 20 MG PO DAILY Prescribed by: FRANKY VINSON on 11/15/16 0004 Patient Home Medication List Home Medication List Reviewed: Yes Review of Systems Review of Systems Constitutional: No chills, No fever EENTM: see HPI; No ear discharge, No ear pain Respiratory: cough; No phlegm; short of breath; No wheezing Cardiovascular: see HPI; No chest pain, No edema Gastrointestinal: No abdominal pain, No nausea Genitourinary: No discharge, No dysuria Musculoskeletal: No back pain, No joint pain Past Utovyzr-Lrdtra-Huiogw Hx Patient Social History Alcohol Use: Denies Use Recreational Drug Use: No Smoking Status: Current Everyday Smoker Type Used: Cigarettes Former Smoker, Quit: Nov 05, 2013 2nd Hand Smoke Exposure: No Recent Foreign Travel: No Contact w/Someone Who Travel: No Recent Hopitalizations: No Immunizations Up To Date Tetanus Booster (TDap): Unknown Seasonal Allergies Seasonal Allergies: No Past Medical History Surgeries: No Respiratory: Yes Asthma Cardiac: Yes High Cholesterol Neurological: No Seizure Disorder Gastrointestinal: No Musculoskeletal: No Endocrine: No Cancer: No Psychosocial: Yes Anxiety Integumentary: No Blood Disorders: No Adverse Reaction/Blood Tranf: No Family Medical History No Pertinent Family Hx Physical Exam Vital Signs - First Documented 09/13/18 09/13/18 01:31 01:48 Pulse 95 Resp 20 B/P (MAP) 165/119 (134) Pulse Ox 99 O2 Delivery Room Air Capillary Refill : Height: 6'0" Weight: 230lbs. oz. 104.398930ed; 44.07 BMI Method:Stated General Appearance: WD/WN, mild distress Eyes: Bilateral Eye Normal Inspection, Bilateral Eye PERRL, Bilateral Eye EOMI HEENT: PERRL/EOMI, normal ENT inspection, pharynx normal, TM abnormal (R) (mucoid effusion, opaque, no loss of landmarks bulging or tenderness on examination bilateral), TM abnormal (L) Neck: full range of motion, normal inspection Respiratory: lungs clear, decreased breath sounds, accessory muscle use (mild); No crackles, No wheezing, No expiration (mildly prolonged) Cardiovascular: normal peripheral pulses, regular rate, rhythm, no edema Gastrointestinal: non tender, soft Neurologic/Psychiatric: alert, normal mood/affect, oriented x 3 Progress/Results/Core Measures Suspected Sepsis SIRS Temperature: Pulse: Respiratory Rate: Blood Pressure / Mean: Results/Orders My Orders Orders - RAYMUNDO BARON Albuterol Pre-Mix Nebs (Rt) (Proventil (09/13/18 01:36) Svn Small Volume Nebulizer (09/13/18 01:36) Vital Signs/I&O 09/13/18 09/13/18 01:31 01:48 Pulse 95 Resp 20 B/P (MAP) 165/119 (134) Pulse Ox 99 O2 Delivery Room Air Capillary Refill : Progress Note #1: Time: 01:41 Progress Note The patient doesn't have any wheezing but she does have some diminished breath sounds which could be due to body habitus or if she is having bronchospasms. We will challenge her with albuterol and reexamine. On room air she still 99%. Difficult to tell if she is having anxiety from increased worker breathing or anxiety is driving her mildly increased work of breathing. We will reexamine her after her breathing treatment. Progress Note #2: Time: 01:58 Progress Note Patient's breath sounds have not greatly changed on reexamination. The patient however is now more relaxed no longer demonstrating any extra worker breathing and says that she feels much better. Plan to provide her with an albuterol MDI, spacer, counseling and instructions to follow-up with PCP in the next week. Departure Impression Primary Impression: Asthma exacerbation Qualified Codes: J45.21 - Mild intermittent asthma with (acute) exacerbation Additional Impressions: Viral upper respiratory tract infection Mucoid otitis media of both ears with effusion Disposition: 01 HOME, SELF-CARE Condition: Improved Departure-Patient Inst. Decision time for Depature: 02:02 Referrals: CHAY ORDONEZ DO (PCP/Family) Primary Care Physician Patient Instructions: Asthma, Adult (DC) Add. Discharge Instructions: Use the albuterol 2 puffs through the spacer every 6 hours for the next 5-7 days. If you need two puffs in between you may take an extra breathing treatment. Plan to follow up with Dr. Ordonez within the next week for reexamination. Return to the nearest ER if you have difficulty breathing. All discharge instructions reviewed with patient and/or family. Voiced understanding. RAYMUNDO BARON Sep 13, 2018 01:42
[2018-09-13] MEDS ORDERED: RX-ALBUTEROL INHALER (PROAIR) 8.5 GM IH STA (02:09)
[2018-09-13 02:15] VITALS: BP 160/99
== END 2018-09-13 02:18 | disposition home or self-care (01) ==
LOC: EDUNIT# 01:28 → ER 01:29
DX: J45.901 Unspecified asthma with (acute) exacerbation (principal); J06.9 Acute upper respiratory infection, unspecified; H65.93 Unspecified nonsuppurative otitis media, bilateral; E78.00 Pure hypercholesterolemia, unspecified; G40.909 Epilepsy, unspecified, not intractable, without status epilepticus; F41.9 Anxiety disorder, unspecified; F17.210 Nicotine dependence, cigarettes, uncomplicated; Z79.52 Long term (current) use of systemic steroids
CPT/HCPCS: 94640

== ENCOUNTER 2018-10-27 09:50 | Emergency (ER) | payer MEDICAID ==
[~2018-10-27] VITALS: Ht 72 cm; Wt 139.8 kg
[2018-10-27] MEDS ORDERED: FLUT9.9S NS (11:39)
[2018-10-27] MEDS ORDERED: AMOX875T2 PO (11:39)
[2018-10-27] MEDS ORDERED: LORA1TAB59 PO (11:39)
--- NOTE | 2018-10-27 11:39 | ED EENT ---
History of Present Illness General Chief Complaint: Oral/Throat Problems Stated Complaint: N/V/THROAT PAIN Nursing Triage Note: PT TO ROOM 2 PT CO OF ALLERGY SX SINCE TUESDAY, STATES STARTED GETTING SORE THROAT TODAY Source: patient History of Present Illness Date Seen by Provider: Oct 27, 2018 Time Seen by Provider: 10:25 Initial Comments PT ARRIVES VIA POV MULTIPLE COMPLAINTS: STATES SYMPTOMS BEGAN ON Tuesday10/23/18 "MY EARS HURT" "MY THROAT HURTS" C/O NASAL CONGESTION "CAN'T EAT OR DRINK-I THROW IT UP" --STATES SHE HAS NOT EATEN OR DRANK ANYTHING TODAY, BUT HAS NOT VOMITED TODAY NO ABDOMINAL PAIN NO DIARRHEA NO FEVER NO PROBLEMS URINATING AND IS VOIDING A NORMAL AMOUNT--LAST VOID WAS JUST PRIOR TO ARRIVAL LMP --NOW, BEGAN 2 DAYS AGO. NORMAL. NO CONTROL. NO KNOWN SICK CONTACTS WITH SIMILAR WAS ON UNKNOWN ANTIBIOTIC SOMETIME LAST MONTH FOR INFECTION LEG--THAT PROBLEM CLEARED UP, AND IS NO LONGER ON ANTIBIOTICS. PCP: DR. ORDONEZ Allergies and Home Medications Allergies Coded Allergies: No Known Drug Allergies (Unverified , 11/12/08) Home Medications Amoxicillin 875 Mg Tablet, 875 MG PO BID Prescribed by: YOON HIDALGO on 10/27/18 1139 Cephalexin 500 Mg Capsule, 500 MG PO QID Prescribed by: AVERY TORRES on 03/09/18 1850 Cyclobenzaprine HCl 10 Mg Tablet, 10 MG PO TID PRN for SPASMS Prescribed by: FRANKY VINSON on 11/15/16 0004 Cyclobenzaprine HCl 10 Mg Tablet, 10 MG PO Q8H PRN for SPASMS Prescribed by: CRISELDA ARAUJO on 08/05/17 1609 D-Methorphan Hb/P-Epd HCl/Bpm 118 Ml Syrup, 5 ML PO Q4H PRN for COUGH Prescribed by: AVERY TORRES on 03/14/17 1551 Fluticasone Propionate 9.9 Ml [place]raw[place].susp, 2 SPRAYS NS BID Prescribed by: YOON HIDALGO on 10/27/18 1139 Loratadine/Pseudoephedrine 1 Each Tab.er.12h, 1 EACH PO BID Prescribed by: YOON HIDALGO on 10/27/18 1139 Naproxen 500 Mg Tablet, 500 MG PO BID PRN for PAIN-MODERATE TO SEVERE Prescribed by: AVERY TORRES on 03/09/18 1851 Prednisone 20 Mg Tab, 20 MG PO DAILY Prescribed by: FRANKY VINSON on 11/15/16 0004 Patient Home Medication List Home Medication List Reviewed: Yes Review of Systems Review of Systems Constitutional: no symptoms reported; No chills, No diaphoresis, No dizziness, No fever Eyes: No Symptoms Reported Ears: See HPI, Pain Nose: see HPI, congestion Mouth: no symptoms reported Throat: see HPI, pain Respiratory: no symptoms reported; No cough, No short of breath, No wheezing Cardiovascular: no symptoms reported Gastrointestinal: see HPI; No abdominal pain, No diarrhea; nausea, vomiting Musculoskeletal: no symptoms reported Skin: no symptoms reported Neurological: No Symptoms Reported; Denies Headache Hematologic/Lymphatic: No Symptoms Reported Immunological/Allergic: no symptoms reported Past Nwlvtgd-Pquxmz-Ukjedt Hx Patient Social History Alcohol Use: Denies Use Recreational Drug Use: No Smoking Status: Current Everyday Smoker (< 1/2 PPD) Type Used: Cigarettes 2nd Hand Smoke Exposure: No Recent Foreign Travel: No Contact w/Someone Who Travel: No Recent Infectious Disease Expo: No Recent Hopitalizations: No Immunizations Up To Date Tetanus Booster (TDap): Unknown Seasonal Allergies Seasonal Allergies: No Past Medical History Surgeries: No Respiratory: Yes Asthma Cardiac: Yes High Cholesterol, Hypertension Neurological: Yes Developmental Disorder (???), Seizure Disorder : No (PCOS) Female Reproductive Disorders: Denies Genitourinary: No Gastrointestinal: No Musculoskeletal: No Endocrine: Yes (OBESITY, HIRSUITISM) HEENT: Yes (SPEECH IMPEDIMENT) Cancer: No Psychosocial: Yes Anxiety Integumentary: No Blood Disorders: No Adverse Reaction/Blood Tranf: No Physical Exam Vital Signs Vital Signs - First Documented 10/27/18 09:55 Temp 36.6 Pulse 81 Resp 18 B/P (MAP) 144/98 (113) Height, Weight, BMI Height: 6'0" Weight: 230lbs. 0oz. 104.265149qx; 269.00 BMI Method:Stated General Appearance: WD/WN, no apparent distress, obese Eyes: bilateral eye normal inspection, bilateral eye PERRL, bilateral eye EOMI Ears: bilateral ear erythema Nose: No sinus tenderness; other (NASAL CONGESTION, CLEAR RHINORRHEA/POST NASAL DRAINAGE) Mouth/Throat: No tonsillar exudate, No tonsillar swelling, No uvula swelling, No voice changes; other (MILD POSTERIOR PHARYNGEAL ERYTHEMA) Neck: non-tender, full range of motion, supple, normal inspection; No lymphadenopathy (R), No lymphadenopathy (L) Cardiovascular: regular rate, rhythm, no murmur Respiratory: normal breath sounds, no respiratory distress Gastrointestinal: normal bowel sounds, non tender, soft, no organomegaly 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, no motor/sensory deficits, alert, normal mood/affect, oriented x 3 Skin: normal color, warm/dry; No rash Progress/Results/Core Measures Results/Orders Lab Results Laboratory Tests Test 10/27/18 10:50 Range/Units Group A Streptococcus Screen NEGATIVE NEGATIVE My Orders Orders - YOON HIDALGO DO Rapid Strep A Screen (10/27/18 10:23) Vital Signs/I&O 10/27/18 09:55 Temp 36.6 Pulse 81 Resp 18 B/P (MAP) 144/98 (113) Blood Pressure Mean: 113 Departure Impression Primary Impression: Upper respiratory infection Additional Impressions: Bilateral otitis media Pharyngitis Disposition: HOME, SELF-CARE Condition: Stable Departure-Patient Inst. Referrals: CHAY ORDONEZ DO (PCP/Family) Primary Care Physician Patient Instructions: Cough, Runny Nose, and the Common Cold, Ear Infections (Otitis Media) (DC), Sore Throat, Adult (DC) Add. Discharge Instructions: TYLENOL AND MOTRIN NEEDED FOR PAIN OR FEVER ROBITUSSIN DM FOR COUGH FOLLOW UP WITH DR. ORDONEZ IN 3-4 DAYS IF NO BETTER All discharge instructions reviewed with patient and/or family. Voiced understanding. Scripts Fluticasone Propionate (Flonase Allergy Relief) 9.9 Ml [place]raw[place].susp 2 SPRAYS NS BID, #1 SPRAY Prov: YOON HIDALGO DO 10/27/18 Loratadine/Pseudoephedrine (Claritin-D 12 Hour Tablet) 1 Each Tab.er.12h 1 EACH PO BID, #20 TAB Prov: YOON HIDALGO DO 10/27/18 Amoxicillin (Amoxicillin) 875 Mg Tablet 875 MG PO BID for INFECTION, #20 TAB Prov: YOON HIDALGO DO 10/27/18 YOON HIDALGO DO Oct 27, 2018 11:39
[2018-10-27 11:58] VITALS: BP 144/98
== END 2018-10-27 11:58 | disposition home or self-care (01) ==
LOC: EDUNIT# 09:50 → ER 09:51
DX: J02.9 Acute pharyngitis, unspecified (principal); H66.93 Otitis media, unspecified, bilateral; J45.909 Unspecified asthma, uncomplicated; I10 Essential (primary) hypertension; E78.00 Pure hypercholesterolemia, unspecified; G40.909 Epilepsy, unspecified, not intractable, without status epilepticus; E66.9 Obesity, unspecified; F41.9 Anxiety disorder, unspecified; F17.210 Nicotine dependence, cigarettes, uncomplicated; Z68.45 Body mass index [BMI] 70 or greater, adult
CPT/HCPCS: 87430; 99284

== ENCOUNTER 2018-10-28 00:50 | Emergency (ER) | payer MEDICAID ==
[~2018-10-28] VITALS: Ht 182.8 cm; Wt 150.0 kg
[~2018-10-28 00:50] MED LIST changes: +AMOX875T2 PO; +FLUT9.9S NS; +LORA1TAB59 PO
--- NOTE | 2018-10-28 00:55 | ED Lower Extremity ---
General Chief Complaint: Lower Extremity Stated Complaint: TRIPPED OVER ROCK History of Present Illness Date Seen by Provider: Oct 28, 2018 Time Seen by Provider: 00:49 Initial Comments Walking to [place] barefoot stepped on a rock and rolled over onto her side. He had a small amount of blood coming out of her foot so her sister called ambulance. She does not know last time she had a tetanus shot. She is not diabetic and not on blood thinners. Allergies and Home Medications Allergies Coded Allergies: No Known Drug Allergies (Unverified , 11/12/08) Home Medications Amoxicillin 875 Mg Tablet, 875 MG PO BID Prescribed by: OYON HIDALGO on 10/27/18 113 Cephalexin 500 Mg Capsule, 500 MG PO QID Prescribed by: AVERY TORRES on 03/09/18 185 Cyclobenzaprine HCl 10 Mg Tablet, 10 MG PO TID PRN for SPASMS Prescribed by: FRANKY VINSON on 11/15/16 0004 Cyclobenzaprine HCl 10 Mg Tablet, 10 MG PO Q8H PRN for SPASMS Prescribed by: CRISELDA ARAUJO on 08/05/17 1609 D-Methorphan Hb/P-Epd HCl/Bpm 118 Ml Syrup, 5 ML PO Q4H PRN for COUGH Prescribed by: AVERY TORRES on 03/14/17 1551 Fluticasone Propionate 9.9 Ml [place].susp, 2 SPRAYS NS BID Prescribed by: YOON HIDALGO on 10/27/18 1139 Loratadine/Pseudoephedrine 1 Each Tab.er.12h, 1 EACH PO BID Prescribed by: YOON HIDALGO on 10/27/18 113 Naproxen 500 Mg Tablet, 500 MG PO BID PRN for PAIN-MODERATE TO SEVERE Prescribed by: AVERY TORRES on 03/09/18 185 Prednisone 20 Mg Tab, 20 MG PO DAILY Prescribed by: FRANKY VINSON on 11/15/16 0004 Patient Home Medication List Home Medication List Reviewed: Yes Review of Systems Constitutional: No chills, No diaphoresis EENTM: No ear discharge, No hearing loss Respiratory: No cough, No short of breath Cardiovascular: No chest pain, No edema Past Yazswgf-Ypvvjo-Hemfif Hx Patient Social History Alcohol Use: Denies Use Smoking Status: Current Everyday Smoker Type Used: Cigarettes 2nd Hand Smoke Exposure: No Recent Foreign Travel: No Contact w/Someone Who Travel: No Recent Hopitalizations: No Immunizations Up To Date Tetanus Booster (TDap): Unknown Seasonal Allergies Seasonal Allergies: No Past Medical History Surgeries: No Respiratory: Yes Asthma Cardiac: Yes High Cholesterol, Hypertension Neurological: Yes Developmental Disorder, Seizure Disorder Female Reproductive Disorders: Denies Genitourinary: No Gastrointestinal: No Musculoskeletal: No Endocrine: Yes (OBESITY, HIRSUITISM) HEENT: Yes (SPEECH IMPEDIMENT) Cancer: No Psychosocial: Yes Anxiety Integumentary: No Blood Disorders: No Adverse Reaction/Blood Tranf: No Physical Exam Vital Signs Vital Signs - First Documented 10/28/18 00:50 Temp 37.1 Pulse 100 Resp 19 B/P (MAP) 141/79 (99) Pulse Ox 99 O2 Delivery Room Air Capillary Refill : Height, Weight, BMI Height: 6'0" Weight: 230lbs. 0oz. 104.202212ob; 269.00 BMI Method:Stated General Appearance: mild distress, obese HEENT: PERRL/EOMI, pharynx normal Neck: non-tender, normal inspection Cardiovascular: normal peripheral pulses, regular rate, rhythm, no edema Respiratory: no respiratory distress, no accessory muscle use Ankles: bilateral ankle non-tender, bilateral ankle normal inspection, bilateral ankle normal range of motion, bilateral ankle no evidence of injury Feet: left foot non-tender, left foot normal inspection; bilateral foot normal range of motion; left foot no evidence of injury; right foot pain, right foot soft tissue tenderness, right foot other (to millimeter laceration in the ball of the right foot plantar side. Hemostatic.) Neurologic/Psychiatric: alert, normal mood/affect, oriented x 3 Skin: normal color, warm/dry Progress/Results/Core Measures Results/Orders My Orders Orders - RAYMUNDO BARON Acetaminophen Tablet (Tylenol Tablet) (10/28/18 01:00) Dipht,Pertuss(Acell),Tet Adult (Boostrix (10/28/18 01:00) Foot, Right, 3 View (10/28/18 00:54) Medications Given in ED Current Medications Medications Dose Ordered Sig/Garth Route Start Time Stop Time Status Last Admin Dose Admin Acetaminophen 1,000 mg ONCE ONCE PO 10/28/18 01:00 10/28/18 01:01 DC 10/28/18 01:07 1,000 MG Diphtheria/ Tetanus/Acell Pertussis 0.5 ml ONCE ONCE IM 10/28/18 01:00 10/28/18 01:01 DC 10/28/18 01:07 0.5 ML Vital Signs/I&O 10/28/18 00:50 Temp 37.1 Pulse 100 Resp 19 B/P (MAP) 141/79 (99) Pulse Ox 99 O2 Delivery Room Air Progress Progress Note : Time: 01:37 Progress Note We have updated her tetanus vaccination given her some Tylenol and pruners no foreign debris seen in x-ray. She is not diabetic so antibiotics are not necessary. The wound was thoroughly cleaned with chlorhexidine. Diagnostic Imaging Diagonstic Imaging: Xray Plain Films/CT/US/NM/MRI: other (right foot) Comments No acute osseous abnormalities, foreign debris or dislocation. Reviewed: Reviewed by Me Departure Impression Primary Impression: Penetrating foot wound Qualified Codes: S91.331A - Puncture wound without foreign body, right foot, initial encounter Disposition: HOME, SELF-CARE Condition: Stable Departure-Patient Inst. Decision time for Depature: 01:38 Referrals: CHAY ORDONEZ DO (PCP/Family) Primary Care Physician Patient Instructions: Wound Care (DC) Add. Discharge Instructions: Keep the wound clean with regular soap and water. If you begin to develop increasing redness swelling or discharge from the wound you need to follow-up with your doctor within the same day or 2. Over the weekend he come to the ER. Tylenol 1000 mg every 8 hours as necessary for pain. Ibuprofen 800 mg every 8 hours as necessary for pain. All discharge instructions reviewed with patient and/or family. Voiced understanding. RAYMUNDO BARON Oct 28, 2018 00:55
[2018-10-28] MEDS ORDERED: ACETAMINOPHEN 500 MG TAB (TYLENOL) PO ONE (01:00)
[2018-10-28] MEDS ORDERED: TETANUS,DIPTH,PERTUSS P/F (BOOSTRIX) 0.5 ML VIAL IM ONE (01:00)
[2018-10-28 01:43] VITALS: BP 138/88
--- NOTE | 2018-10-28 07:26 | Diagnostic Imaging Report ---
INDICATION: Right foot pain. COMPARISON: Right foot radiographs of 03/09/2018. TECHNIQUE: 3 views of the right foot were obtained without weightbearing. FINDINGS: No acute fracture or traumatic malalignment. Normal osseous mineralization without erosions. 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 Large os peroneum is stable. Small plantar calcaneal spur is also unchanged. IMPRESSION: No acute osseous abnormality in the right foot. Dictated by: Dictated on workstation # [id number]
== END 2018-10-28 01:43 | disposition home or self-care (01) ==
LOC: EDUNIT# 00:50 → ER 00:52
DX: S91.331A Puncture wound without foreign body, right foot, initial encounter (principal); J45.909 Unspecified asthma, uncomplicated; I10 Essential (primary) hypertension; E78.00 Pure hypercholesterolemia, unspecified; G40.909 Epilepsy, unspecified, not intractable, without status epilepticus; F89 Unspecified disorder of psychological development; E66.9 Obesity, unspecified; F41.9 Anxiety disorder, unspecified; F17.210 Nicotine dependence, cigarettes, uncomplicated; Z79.52 Long term (current) use of systemic steroids; Z68.41 Body mass index [BMI] 40.0-44.9, adult; W01.198A Fall on same level from slipping, tripping and stumbling with subsequent striking against other object, initial encounter
CPT/HCPCS: 73630; 90715

== ENCOUNTER 2018-11-01 20:19 | Emergency (ER) | payer MEDICAID ==
[~2018-11-01] VITALS: Ht 182.8 cm; Wt 134.0 kg
[2018-11-01] MEDS ORDERED: LIDOCAINE 1% INJ 20 ML 20 ML VIAL INJ ONE (21:15)
[2018-11-01] MEDS ORDERED: KETOROLAC 30 MG/ML VIAL IM ONE (21:15)
[2018-11-01] MEDS ORDERED: DEXAMETHASONE 10 MG/ML (DECADRON) 1 ML VIAL IM ONE (21:15)
[2018-11-01] MEDS ORDERED: cefTRIAXone 1,000 MG/2.86 ml vial (IM ONLY) IM SCH (21:15)
[2018-11-01] MEDS ORDERED: ONDA8TAB13 PO (21:21)
[2018-11-01] MEDS ORDERED: AMOX-358 PO (21:21)
--- NOTE | 2018-11-01 21:21 | ED General ---
General Chief Complaint: General Problems/Pain Stated Complaint: HEADACHE Nursing Triage Note: Pt c/o L ear pain and reports being on AB currently. Pt alos reports headached, chills and vomiting that began this afternoon. Nursing Sepsis Screen: No Definite Risk Source of Information: Patient Exam Limitations: No Limitations History of Present Illness Date Seen by Provider: Nov 01, 2018 Time Seen by Provider: 21:18 Initial Comments To ER with reports of a frontal headache that began about 4 hours ago mildly and has gotten progressively worse, she did vomit once. She is on Flonase, amoxicillin 875 twice a day since Tuesday denies any improvement. Has nasal congestion. Timing/Duration: 3-4 Days Severity: Moderate Modifying Factors: improves with Medication Associated Systoms: Headaches, Nausea/Vomiting Allergies and Home Medications Allergies Coded Allergies: No Known Drug Allergies (Unverified , 11/12/08) Home Medications Amoxicillin 875 Mg Tablet, 875 MG PO BID Prescribed by: YOON HIDALGO on 10/27/18 113 Cephalexin 500 Mg Capsule, 500 MG PO QID Prescribed by: AVERY TORRES on 03/09/18 185 Cyclobenzaprine HCl 10 Mg Tablet, 10 MG PO TID PRN for SPASMS Prescribed by: FRANKY VINSON on 11/15/16 0004 Cyclobenzaprine HCl 10 Mg Tablet, 10 MG PO Q8H PRN for SPASMS Prescribed by: CRISELDA ARAUJO on 08/05/17 1609 D-Methorphan Hb/P-Epd HCl/Bpm 118 Ml Syrup, 5 ML PO Q4H PRN for COUGH Prescribed by: AVERY TORRES on 03/14/17 1551 Fluticasone Propionate 9.9 Ml [place].susp, 2 SPRAYS NS BID Prescribed by: YOON HIDALGO on 10/27/18 113 Loratadine/Pseudoephedrine 1 Each Tab.er.12h, 1 EACH PO BID Prescribed by: YOON HIDALGO on 10/27/18 113 Naproxen 500 Mg Tablet, 500 MG PO BID PRN for PAIN-MODERATE TO SEVERE Prescribed by: AVERY TORRES on 03/09/18 185 Prednisone 20 Mg Tab, 20 MG PO DAILY Prescribed by: FRANKY VINSON on 11/15/16 0004 Patient Home Medication List Home Medication List Reviewed: Yes Review of Systems Review of Systems Constitutional: see HPI EENTM: see HPI Respiratory: no symptoms reported Cardiovascular: no symptoms reported Genitourinary: no symptoms reported Musculoskeletal: no symptoms reported Skin: no symptoms reported Psychiatric/Neurological: No Symptoms Reported Hematologic/Lymphatic: No Symptoms Reported Past Ojzlnmw-Ijikay-Pjidal Hx Patient Social History Alcohol Use: Denies Use Recreational Drug Use: No Smoking Status: Former Smoker Type Used: Cigarettes Former Smoker, Quit: Nov 02, 2018 2nd Hand Smoke Exposure: No Recent Foreign Travel: No Contact w/Someone Who Travel: No Recent Infectious Disease Expo: No Recent Hopitalizations: No Physical Abuse: No Sexual Abuse: No Immunizations Up To Date Tetanus Booster (TDap): Unknown Seasonal Allergies Seasonal Allergies: No Past Medical History Surgeries: No Respiratory: Yes Asthma Cardiac: Yes High Cholesterol, Hypertension Neurological: Yes Developmental Disorder, Seizure Disorder Last Menstrual Period: Oct 25, 2018 Female Reproductive Disorders: Denies Genitourinary: No Gastrointestinal: No Musculoskeletal: No Endocrine: Yes (OBESITY, HIRSUITISM) HEENT: Yes (SPEECH IMPEDIMENT) Cancer: No Psychosocial: Yes Anxiety Integumentary: No Blood Disorders: No Adverse Reaction/Blood Tranf: No Physical Exam Vital Signs Vital Signs - First Documented 11/01/18 20:45 Temp 37.1 Pulse 84 Resp 18 B/P (MAP) 153/93 (113) Pulse Ox 95 O2 Delivery Room Air Capillary Refill : Less Than 3 Seconds Height, Weight, BMI Height: 6'0" Weight: 230lbs. 0oz. 104.527251zb; 40.00 BMI Method:Stated General Appearance: No Apparent Distress, WD/WN Eyes: Bilateral Eye Normal Inspection, Bilateral Eye PERRL, Bilateral Eye EOMI HEENT: PERRL/EOMI, Normal ENT Inspection, Other (tenderness palpation over the bridge of the nose, right tympanic membrane erythematous and bulging) Neck: Full Range of Motion, Normal Inspection Respiratory: Lungs Clear, Normal Breath Sounds, No Accessory Muscle Use, No Respiratory Distress Cardiovascular: Regular Rate, Rhythm, Normal Peripheral Pulses Gastrointestinal: Normal Bowel Sounds, Non Tender, Soft Extremity: Normal Capillary Refill, Normal Inspection Neurologic/Psychiatric: Alert, Oriented x3 Progress/Results/Core Measures Suspected Sepsis Recent Fever Within 48 Hours: No Infection Criteria Present: None New/Unexplained Altered Menta: No Sepsis Screen: No Definite Risk SIRS Temperature: Pulse: 84 Respiratory Rate: 18 Blood Pressure 153 /93 Mean: 113 Results/Orders My Orders Orders - AVERY TORRES APRN Ceftriaxone For Im Use (Rocephin For Im (11/01/18 21:15) Ketorolac Injection (Toradol Injection) (11/01/18 21:15) Dexamethasone Injection (Decadron Inject (11/01/18 21:15) Lidocaine 1% Inj 20 Ml (Xylocaine 1% Inj (11/01/18 21:15) Urine Bedside (11/01/18 21:15) Ct Head Wo (11/01/18 21:15) Vital Signs/I&O 11/01/18 20:45 Temp 37.1 Pulse 84 Resp 18 B/P (MAP) 153/93 (113) Pulse Ox 95 O2 Delivery Room Air Capillary Refill : Less Than 3 Seconds Blood Pressure Mean: 113 Departure Impression Primary Impression: Sinusitis Qualified Codes: J01.10 - Acute frontal sinusitis, unspecified Additional Impression: Otitis media Qualified Codes: H66.001 - Acute suppurative otitis media without spontaneous rupture of ear drum, right ear Disposition: 01 HOME, SELF-CARE Condition: Stable Departure-Patient Inst. Decision time for Depature: 21:20 Referrals: CHAY ORDONEZ DO (PCP/Family) Primary Care Physician Patient Instructions: Sinusitis in Adults Add. Discharge Instructions: 1. Tylenol and ibuprofen for headache or any pain or fever control 2. Stop the amoxicillin and switch to the new medication amoxicillin/clavulanic acid. All discharge instructions reviewed with patient and/or family. Voiced understanding. Scripts Ondansetron (Ondansetron Odt) 8 Mg Tab.rapdis 8 MG PO Q6H PRN for PAIN-SEVERE, #14 TAB Prov: AVERY TORRES APRN 11/01/18 Amoxicillin/Potassium Clav (Augmentin 875-125 Tablet) 1 Each Tablet 1 EACH PO BID, #14 TAB 0 Refills Prov: AVERY TORRES APRN 11/01/18 AVERY TORRES APRN Nov 01, 2018 21:21
--- NOTE | 2018-11-01 21:47 | Diagnostic Imaging Report ---
PROCEDURE: CT head without contrast. TECHNIQUE: Multiple contiguous axial images were obtained through the brain without the use of intravenous contrast. Auto Exposure Controls were utilized during the CT exam to meet ALARA standards for radiation dose reduction. INDICATION: Headache CT HEAD: CT images of the head were obtained. FINDINGS: Ventricles and sulci are within normal limits for size. There is no intracranial hemorrhage identified. There is no abnormal mass effect or shift of midline structures. IMPRESSION: Unremarkable CT of the head. Dictated by: Dictated on workstation # [id number]
[2018-11-01 22:01] VITALS: BP 132/95
== END 2018-11-01 21:50 | disposition home or self-care (01) ==
LOC: EDUNIT# 20:19 → ER 20:20
DX: J32.9 Chronic sinusitis, unspecified (principal); H66.91 Otitis media, unspecified, right ear; J45.909 Unspecified asthma, uncomplicated; I10 Essential (primary) hypertension; G40.909 Epilepsy, unspecified, not intractable, without status epilepticus; F89 Unspecified disorder of psychological development; E66.9 Obesity, unspecified; F41.9 Anxiety disorder, unspecified; Z87.891 Personal history of nicotine dependence; Z68.41 Body mass index [BMI] 40.0-44.9, adult
CPT/HCPCS: 70450; 84703; 96372

== ENCOUNTER 2018-11-13 12:05 | Emergency (ER) | payer MEDICAID ==
[~2018-11-13] VITALS: Ht 182.8 cm; Wt 136.5 kg
[~2018-11-13 12:05] MED LIST changes: +AMOX-358 PO; +ONDA8TAB13 PO
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
[2018-11-13] MEDS ORDERED: AMOX-358 PO (13:12)
[2018-11-13] MEDS ORDERED: MUPI22OI2 TP (13:12)
[2018-11-13 13:19] VITALS: BP 160/105
== END 2018-11-13 13:19 | disposition home or self-care (01) ==
LOC: EDUNIT# 12:05 → ER 12:06
DX: S21.052A Open bite of left breast, initial encounter (principal); N61.0 Mastitis without abscess; I10 Essential (primary) hypertension; J45.909 Unspecified asthma, uncomplicated; E78.00 Pure hypercholesterolemia, unspecified; G40.909 Epilepsy, unspecified, not intractable, without status epilepticus; F41.9 Anxiety disorder, unspecified; F17.210 Nicotine dependence, cigarettes, uncomplicated; E66.9 Obesity, unspecified; Z68.41 Body mass index [BMI] 40.0-44.9, adult; Z79.52 Long term (current) use of systemic steroids; Y04.1XXA Assault by human bite, initial encounter
CPT/HCPCS: 99283

== ENCOUNTER 2018-12-05 16:01 | Emergency (ER) | payer MEDICAID ==
[~2018-12-05] VITALS: Ht 182 cm; Wt 122.6 kg
[~2018-12-05 16:01] MED LIST changes: +MUPI22OI2 TP
--- NOTE | 2018-12-05 17:02 | NUR ---
PT NOTIFIED OF BUSY ER WITH LONG WAIT TIME.
--- NOTE | 2018-12-05 17:50 | NUR ---
Assumed care of pt @ this time. Pt ambulates to room #2 w/o difficulty. a&ox4. Reports nausea and vomiting. Reports to have experienced 3 episodes of emesis throughout this day. Denies pain or discomfort @ this time.
[2018-12-05] MEDS ORDERED: LACTATED RINGERS 1,000 ML IV ONE (18:34)
[2018-12-05 18:42] LABS: BILIRUBIN,URINE NEGATIVE (NEGATIVE); CLARITY,URINE VERY CLOUDY; COLOR,URINE YELLOW; GLUCOSE, URINE (UA) NEGATIVE (NEGATIVE); KETONES,URINE NEGATIVE (NEGATIVE); LEUKOCYTE ESTERASE ,URINE 3+ (NEGATIVE); NITRITE,URINE POSITIVE (NEGATIVE); PH,URINE 7 (5-9); PROTEIN,URINE 2+ (NEGATIVE)
[2018-12-05] MEDS ORDERED: SCOPOLAMINE 1.5 MG (TRANSDERM-SCOP) PATCH TD ONE (18:45)
[2018-12-05] MEDS ORDERED: ONDANSETRON 4 MG/2 ML (SDV) Z0FRAN IVP ONE (18:45)
[2018-12-05 18:52] LABS: BASOPHILS % (AUTO) 0 % (0-10); EOSINOPHILS # (AUTO) 0.1 10^3/uL (0.0-0.3); EOSINOPHILS % (AUTO) 1 % (0-10); HEMATOCRIT 44 % (35-52); HEMOGLOBIN 14.3 G/DL (11.5-16.0); LYMPHOCYTES # (AUTO) 3.8 X 10^3 (1.0-4.0); LYMPHOCYTES % (AUTO) 31 % (12-44); MEAN CORPUSCULAR HEMOGLOBIN 29 PG (25-34); MEAN CORPUSCULAR HGB CONC 33 G/DL (32-36); MEAN CORPUSCULAR VOLUME 88 FL (80-99); MEAN PLATELET VOLUME 10.6 FL (7.4-10.4); MONOCYTES # (AUTO) 1.4 X 10^3 (0.0-1.0); MONOCYTES % (AUTO) 11 % (0-12); NEUTROPHILS # (AUTO) 7.1 X 10^3 (1.8-7.8); NEUTROPHILS % (AUTO) 57 % (42-75); PLATELET COUNT 280 10^3/uL (130-400); RED CELL DISTRIBUTION WIDTH 14.6 % (10.0-14.5); WHITE BLOOD COUNT 12.4 10^3/uL (4.3-11.0)
[2018-12-05 18:54] LABS: BACTERIA,URINE LARGE /HPF; WBC,URINE 50-100 /HPF
[2018-12-05 19:03] LABS: AMPHETAMINE SCREEN, URINE NEGATIVE (NEGATIVE); BARBITURATE SCREEN URINE NEGATIVE (NEGATIVE); BENZODIAZEPINES SCREEN URINE NEGATIVE (NEGATIVE); CANNABINOID SCREEN, URINE NEGATIVE (NEGATIVE); COCAINE SCREEN URINE NEGATIVE (NEGATIVE); METHAMPHETAMINE SCREEN URINE S NEGATIVE (NEGATIVE); OPIATE SCREEN URINE NEGATIVE (NEGATIVE); TRICYCLIC ANTIDEPRESSANTS SCRE NEGATIVE (NEGATIVE)
[2018-12-05 19:04] LABS: METHADONE STAT NEGATIVE (NEGATIVE); OXYCODONE STAT NEGATIVE (NEGATIVE); PROPOXYPHENE STAT NEGATIVE (NEGATIVE)
--- NOTE | 2018-12-05 19:10 | Diagnostic Imaging Report ---
PROCEDURE: CT head without contrast. TECHNIQUE: Multiple contiguous axial images were obtained through the brain without the use of intravenous contrast. Auto Exposure Controls were utilized during the CT exam to meet ALARA standards for radiation dose reduction. INDICATION: Lightheadedness and dizziness. CORRELATION is made with prior head CT from 11/01/2018. FINDINGS: The ventricular size and sulcal pattern are stable. There is no midline shift. No acute intra-axial or extra-axial hemorrhage is detected. The cisterns are patent. The visualized paranasal sinuses are clear. IMPRESSION: No acute intracranial process is detected. Dictated by: Dictated on workstation # [id number]
[2018-12-05 19:15] LABS: ALANINE AMINOTRANSFERASE 15 U/L (0-55); ALBUMIN 4.5 GM/DL (3.2-4.5); ALKALINE PHOSPHATASE 71 U/L (40-136); AMYLASE 80 U/L (25-125); BILIRUBIN,TOTAL 0.2 MG/DL (0.1-1.0); BUN/CREATININE RATIO 14; CALCIUM 9.6 MG/DL (8.5-10.1); CARBON DIOXIDE 24 MMOL/L (21-32); CHLORIDE 107 MMOL/L (98-107); CREATININE SERUM 0.84 MG/DL (0.60-1.30); GFR ESTIMATED > 60; GLUCOSE 90 MG/DL (70-105); LIPASE 61 U/L (8-78); MAGNESIUM 2.1 MG/DL (1.6-2.4); POTASSIUM 4.1 MMOL/L (3.6-5.0); SODIUM 143 MMOL/L (135-145); TOTAL PROTEIN 8.6 GM/DL (6.4-8.2)
[2018-12-05] MEDS ORDERED: ONDA4TAB11 PO (19:23)
[2018-12-05] MEDS ORDERED: SCOP1PAT11 TD (19:23)
[2018-12-05] MEDS ORDERED: CEFD300C3 PO (19:23)
[2018-12-05] MEDS ORDERED: MECL-106 PO (19:23)
--- NOTE | 2018-12-05 19:24 | ED General ---
General Chief Complaint: General Problems/Pain Stated Complaint: HEADACHE, WEAKNESS Nursing Triage Note: HEADACHE, WEAKNESS, N/V, AND MULTIPLE SEIZURES STARTING YESTEREDAY. PT HAS A HX OF SEIZURES Nursing Sepsis Screen: No Definite Risk Source of Information: Patient History of Present Illness Date Seen by Provider: Dec 05, 2018 Time Seen by Provider: 18:25 Initial Comments PT ARRIVES VIA POV STATES SHE'S "NOT FEELING GOOD" AND IS DIZZY--SYMPTOMS BEGAN 2 DAYS AGO STATES SHE FEELS "OFF BALANCE" AT TIMES C/O NAUSEA AND MOSTLY DRY HEAVES--HAS SPIT UP "VOMITED" CLEAR MUCOUS IN ER NO DIARRHEA NO ABDOMINAL PAIN NO PROBLEMS URINATING, VOIDING A NORMAL AMOUNT/ DENIES HEADACHE NO COUGH OR URI SYMPTOMS NO FEVER OR RECENT ILLNESS STATES SHE IS DRINKING LIQUIDS "GOOD"--HAS HAD A TOTAL OF A GLASS OF MILK AND "A LITTLE BIT" OF WATER TODAY. HAS BEEN EATING FOOD WELL, JUST NOT MUCH USUAL NO SICK CONTACTS OR SUSPICIOUS FOODS LMP--1 WEEK AGO. NORMAL. NO CONTROL PCP: DR. ORDONEZ, HAS A ROUTINE APPOINTMENT ON TUESDAY. Allergies and Home Medications Allergies Coded Allergies: No Known Drug Allergies (Unverified , 11/12/08) Home Medications Amoxicillin 875 Mg Tablet, 875 MG PO BID Prescribed by: YOON HIDALGO on 10/27/18 1139 Amoxicillin/Potassium Clav 1 Each Tablet, 1 EACH PO BID Prescribed by: AVERY TORRES on 11/01/182120 Amoxicillin/Potassium Clav 1 Each Tablet, 1 EACH PO BID Prescribed by: JULIO CÉSAR SCHMITT on 11/13/18 1312 Cefdinir 300 Mg Capsule, 300 MG PO BID Prescribed by: YOON HIDALGO on 12/05/18 1923 Cephalexin 500 Mg Capsule, 500 MG PO QID Prescribed by: AVERY TORRES on 03/09/18 1850 Cyclobenzaprine HCl 10 Mg Tablet, 10 MG PO TID PRN for SPASMS Prescribed by: FRANKY VINSON on 11/15/16 0004 Cyclobenzaprine HCl 10 Mg Tablet, 10 MG PO Q8H PRN for SPASMS Prescribed by: CRISELDA ARAUJO on 08/05/17 1609 D-Methorphan Hb/P-Epd HCl/Bpm 118 Ml Syrup, 5 ML PO Q4H PRN for COUGH Prescribed by: AVERY TORRES on 03/14/17 1551 Fluticasone Propionate 9.9 Ml [place].susp, 2 SPRAYS NS BID Prescribed by: YOON HIDALGO on 10/27/18 113 Loratadine/Pseudoephedrine 1 Each Tab.er.12h, 1 EACH PO BID Prescribed by: YOON HIDALGO on 10/27/18 113 Meclizine HCl 25 Mg Tablet, 25-50 MG PO Q6H Prescribed by: YOON HIDALGO on 12/05/181922 Mupirocin 22 Gm Oint...g., 22 GM TP TID Prescribed by: JULIO CÉSAR SCHMITT on 11/13/18 1312 Naproxen 500 Mg Tablet, 500 MG PO BID PRN for PAIN-MODERATE TO SEVERE Prescribed by: AVERY TORRES on 03/09/18 185 Ondansetron 8 Mg Tab.rapdis, 8 MG PO Q6H PRN for PAIN-SEVERE Prescribed by: AVERY TORRES on 11/01/182120 Ondansetron 4 Mg Tab.rapdis, 4 MG PO Q4H Prescribed by: YOON HIDALGO on 12/05/181922 Prednisone 20 Mg Tab, 20 MG PO DAILY Prescribed by: FRANKY VINSON on 11/15/16 0004 Scopolamine 1 Each Patch.td72, 1 EACH TD Q72 HOURS Prescribed by: YOON HIDALGO on 12/05/181922 Patient Home Medication List Home Medication List Reviewed: Yes Review of Systems Review of Systems Constitutional: No chills, No diaphoresis; dizziness; No fever EENTM: see HPI; No ear pain, No nose congestion, No throat pain Respiratory: no symptoms reported; No cough, No short of breath, No wheezing Cardiovascular: no symptoms reported Gastrointestinal: see HPI; No abdominal pain, No constipation, No diarrhea; nausea Genitourinary: no symptoms reported; No decreased output, No dysuria, No f requency, No pain Musculoskeletal: no symptoms reported; No back pain, No neck pain Skin: no symptoms reported; No rash Psychiatric/Neurological: No Symptoms Reported; Denies Headache, Denies Numbness, Denies Paresthesia Hematologic/Lymphatic: No Symptoms Reported Immunological/Allergic: no symptoms reported Past Xscqxir-[place] Hx Past Med/Social Hx: Reviewed and Corrections made Patient Social History Alcohol Use: Denies Use Recreational Drug Use: No Smoking Status: Current Everyday Smoker (< 1/2 PPD) Type Used: Cigarettes 2nd Hand Smoke Exposure: Yes Recent Foreign Travel: No Contact w/Someone Who Travel: No Recent Infectious Disease Expo: No Recent Hopitalizations: No Immunizations Up To Date Tetanus Booster (TDap): Unknown Seasonal Allergies Seasonal Allergies: No Past Medical History Surgeries: No Respiratory: Yes Asthma Cardiac: Yes High Cholesterol, Hypertension Neurological: Yes Developmental Disorder (???), Seizure Disorder Female Reproductive Disorders: Polycystic Ovarian Dis Genitourinary: No Gastrointestinal: No Musculoskeletal: No Endocrine: Yes (OBESITY, HIRSUITISM) HEENT: Yes (SPEECH IMPEDIMENT; POOR DENTITION) Cancer: No Psychosocial: Yes Anxiety Integumentary: No Blood Disorders: No Adverse Reaction/Blood Tranf: No Physical Exam Vital Signs Vital Signs - First Documented 12/05/18 16:59 Temp 36.5 Pulse 84 Resp 16 B/P (MAP) 143/101 (115) Pulse Ox 99 O2 Delivery Room Air Capillary Refill : Less Than 3 Seconds Height, Weight, BMI Height: 6'0" Weight: 230lbs. 0oz. 104.137183ma; 37.00 BMI Method:Stated General Appearance: No Apparent Distress, WD/WN, Obese (MORBILDY), Other (REEKS OF CIGARETTES) HEENT: PERRL/EOMI, Pharynx Normal; No Pharyngeal Erythema, No Photophobia; Other (RIGHT TM SCLEROTIC. LEFT TM INFLAMED, SCLEROTIC, WITH EFFUSION. EXTREMELY POOR DENTITION WITH NO TOP TEETH AND FEW REMAINING BOTTOM TEETH WITH EXTENSIVE DECAY AND VERY POOR ORAL HYGIENE) Neck: Full Range of Motion, Normal Inspection, Non Tender, Supple Respiratory: Normal Breath Sounds, No Accessory Muscle Use, No Respiratory Distress Cardiovascular: Regular Rate, Rhythm, No Edema, No JVD, No Murmur, Normal Peripheral Pulses Gastrointestinal: Normal Bowel Sounds, Non Tender, Soft Back: Normal Inspection, No CVA Tenderness Extremity: Normal Capillary Refill, Normal Inspection, Normal Range of Motion, Non Tender, No Calf Tenderness, No Pedal Edema Neurologic/Psychiatric: Alert, Oriented x3, No Motor/Sensory Deficits, 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, Other (APPEARS TO BE VERY IMMATURE) Skin: Normal Color, Warm/Dry, Other (VERY HIRSUITE) Progress/Results/Core Measures Suspected Sepsis Recent Fever Within 48 Hours: No Infection Criteria Present: None New/Unexplained Altered Menta: No Sepsis Screen: No Definite Risk SIRS Temperature: Pulse: 84 Respiratory Rate: 16 Laboratory Tests 12/05/18 18:45: White Blood Count 12.4H Blood Pressure 143 /101 Mean: 115 Laboratory Tests 12/05/18 18:45: Creatinine 0.84, Platelet Count 280, Total Bilirubin 0.2 Results/Orders Lab Results Laboratory Tests Test 12/05/18 18:35 12/05/18 18:45 Range/Units Urine Color YELLOW Urine Clarity VERY CLOUDY H Urine pH 7 5-9 Urine Specific Salol 1.010 L 1.016-1.022 Urine Protein 2+ H NEGATIVE Urine Glucose (UA) NEGATIVE NEGATIVE Urine Ketones NEGATIVE NEGATIVE Urine Nitrite POSITIVE H NEGATIVE Urine Bilirubin NEGATIVE NEGATIVE Urine Urobilinogen NORMAL NORMAL MG/DL Urine Leukocyte Esterase 3+ H NEGATIVE Urine RBC (Auto) 2+ H NEGATIVE Urine RBC 2-5 H /HPF Urine WBC 50-100 H /HPF Urine Squamous Epithelial Cells 10-25 H /HPF Urine Crystals NONE /LPF Urine Bacteria LARGE H /HPF Urine Casts NONE /LPF Urine Mucus NEGATIVE /LPF Urine Culture Indicated YES Urine Opiates Screen NEGATIVE NEGATIVE Urine Oxycodone Screen NEGATIVE NEGATIVE Urine Methadone Screen NEGATIVE NEGATIVE Urine Propoxyphene Screen NEGATIVE NEGATIVE Urine Barbiturates Screen NEGATIVE NEGATIVE Ur Tricyclic Antidepressants Screen NEGATIVE NEGATIVE Urine Phencyclidine Screen NEGATIVE NEGATIVE Urine Amphetamines Screen NEGATIVE NEGATIVE Urine Methamphetamines Screen NEGATIVE NEGATIVE Urine Benzodiazepines Screen NEGATIVE NEGATIVE Urine Cocaine Screen NEGATIVE NEGATIVE Urine Cannabinoids Screen NEGATIVE NEGATIVE White Blood Count 12.4 H 4.3-11.0 10^3/uL Red Blood Count 4.98 4.35-5.85 10^6/uL Hemoglobin 14.3 11.5-16.0 G/DL Hematocrit 44 35-52 % Mean Corpuscular Volume 88 80-99 FL Mean Corpuscular Hemoglobin 29 25-34 PG Mean Corpuscular Hemoglobin Concent 33 32-36 G/DL Red Cell Distribution Width 14.6 H 10.0-14.5 % Platelet Count 280 130-400 10^3/uL Mean Platelet Volume 10.6 H 7.4-10.4 FL Neutrophils (%) (Auto) 57 42-75 % Lymphocytes (%) (Auto) 31 12-44 % Monocytes (%) (Auto) 11 0-12 % Eosinophils (%) (Auto) 1 0-10 % Basophils (%) (Auto) 0 0-10 % Neutrophils # (Auto) 7.1 1.8-7.8 X 10^3 Lymphocytes # (Auto) 3.8 1.0-4.0 X 10^3 Monocytes # (Auto) 1.4 H 0.0-1.0 X 10^3 Eosinophils # (Auto) 0.1 0.0-0.3 10^3/uL Basophils # (Auto) 0.0 0.0-0.1 10^3/uL Sodium Level 143 135-145 MMOL/L Potassium Level 4.1 3.6-5.0 MMOL/L Chloride Level 107 98-107 MMOL/L Carbon Dioxide Level 24 21-32 MMOL/L Anion Gap 12 5-14 MMOL/L Blood Urea Nitrogen 12 7-18 MG/DL Creatinine 0.84 0.60-1.30 MG/DL Estimat Glomerular Filtration Rate > 60 BUN/Creatinine Ratio 14 Glucose Level 90 70-105 MG/DL Calcium Level 9.6 8.5-10.1 MG/DL Corrected Calcium 9.2 8.5-10.1 MG/DL Magnesium Level 2.1 1.6-2.4 MG/DL Total Bilirubin 0.2 0.1-1.0 MG/DL Aspartate Amino Transf (AST/SGOT) 12 5-34 U/L Alanine Aminotransferase (ALT/SGPT) 15 0-55 U/L Alkaline Phosphatase 71 40-136 U/L Troponin I < 0.028 <0.028 NG/ML Total Protein 8.6 H 6.4-8.2 GM/DL Albumin 4.5 3.2-4.5 GM/DL Amylase Level 80 25-125 U/L Lipase 61 8-78 U/L My Orders Orders - YOON HIDALGO DO Ed Iv/Invasive Line Start (12/05/18 18:34) Urine Bedside (12/05/18 18:34) Ekg Tracing (12/05/18 18:34) Monitor-Rhythm Ecg Trace Only (12/05/18 18:34) Ct Head Wo (12/05/18 18:34) Amylase (12/05/18 18:34) Cbc With Automated Diff (12/05/18 18:34) Comprehensive Metabolic Panel (12/05/18 18:34) Drug Screen Stat (Urine) (12/05/18 18:34) Lipase (12/05/18 18:34) Magnesium (12/05/18 18:34) Ua Culture If Indicated (12/05/18 18:34) Troponin I (12/05/18 18:34) Ondansetron Injection (Zofran Injectio (12/05/18 18:45) Ed Iv/Invasive Line Start (12/05/18 18:34) Lactated Ringers (Lr 1000 Ml Iv Solution (12/05/18 18:34) Scopolamine Patch (Transderm-Scop Patch) (12/05/18 18:45) Urine Culture (12/05/18 18:35) Ceftriaxone For Iv Use (Rocephin For I (12/05/18 19:30) Medications Given in ED Current Medications Medications Dose Ordered Sig/Garth Route Start Time Stop Time Status Last Admin Dose Admin Ceftriaxone Sodium 1000 mg/ Sterile Water 10 ml @ 200 mls/hr ONCE ONCE IV 12/05/18 19:30 12/05/18 19:32 DC 12/05/18 19:32 200 MLS/HR Lactated Ringer's 1,000 ml @ 0 mls/hr Q0M ONCE IV 12/05/18 18:34 12/05/18 18:36 DC 12/05/18 18:52 0 MLS/HR Ondansetron HCl 4 mg ONCE ONCE IVP 12/05/18 18:45 12/05/18 18:46 DC 12/05/18 18:51 4 MG Scopolamine 1.5 mg ONCE ONCE TD 12/05/18 18:45 12/05/18 18:46 DC 12/05/18 18:52 1.5 MG Vital Signs/I&O 12/05/18 16:59 Temp 36.5 Pulse 84 Resp 16 B/P (MAP) 143/101 (115) Pulse Ox 99 O2 Delivery Room Air Capillary Refill : Less Than 3 Seconds Blood Pressure Mean: 115 Progress Note : Progress Note WAILING, CRYING WITH IV--APPEARS TO BE VERY IMMATURE. SYMPTOMS MUCH IMPROVED AT DISMISSAL AND STATES THEY ARE COMPLETELY GONE SHE LEAVES ER. PT AMBULATES INTO AND OUT OF ER WITHOUT DIFFICULTY, NO BALANCE PROBLEMS ECG Initial ECG Impression Date: Dec 05, 2018 Initial ECG Impression Time: 18:37 Initial ECG Rate: 84 Initial ECG Rhythm: Normal Sinus Diagnostic Imaging Comments CT HEAD--NO ACUTE PROCESS, PER RADIOLOGIST REPORT AT 1930 Reviewed: Reviewed by Me Departure Impression Primary Impression: Dizziness Additional Impressions: UTI (urinary tract infection) Left otitis media with effusion Disposition: HOME, SELF-CARE Condition: Improved Departure-Patient Inst. Referrals: CHAY ORDONEZ DO (PCP/Family) Primary Care Physician Patient Instructions: Dizziness, Nonvertigo, (DC), Urinary Tract Infection, Adult (DC), Serous Otitis Media (DC), Ear Infections (Otitis Media) (DC) Add. Discharge Instructions: HOME, REST LOTS OF CLEAR LIQUIDS--WATER, BROTH, JELLO, GATORADE WHEN YOUR NAUSEA IS BETTER, ADD BRATS DIET TO CLEAR LIQUIDS--BANANAS, RICE, APPLESAUCE, TOAST, SALINTES. TYLENOL AND MOTRIN NEEDED FOR PAIN OR FEVER FOLLOW UP WITH YOUR DR IN 3-4 DAYS FOR FURTHER CARE All discharge instructions reviewed with patient and/or family. Voiced understanding. Scripts Meclizine HCl (Meclizine HCl) 25 Mg Tablet 25-50 MG PO Q6H for Dizziness, #30 TAB Prov: YOON HIDALGO DO 12/05/18 Ondansetron (Ondansetron Odt) 4 Mg Tab.rapdis 4 MG PO Q4H for Nausea/Vomiting, #10 TAB Prov: YOON HIDALGO DO 12/05/18 Scopolamine (Transderm-Scop) 1 Each Patch.td72 1 EACH TD Q72 HOURS for Dizziness, #3 PATCH Prov: YOON HIDALGO DO 12/05/18 Cefdinir (Cefdinir) 300 Mg Capsule 300 MG PO BID for FOR INFECTION, #20 CAP Prov: YOON HIDALGO DO 12/05/18 YOON HIDALGO DO Dec 05, 2018 19:24
[2018-12-05] MEDS ORDERED: cefTRIAXone FOR IV USE 1,000 MG in WATER (STERILE) FOR INJECTION 10 ML IV ONE (19:30)
[2018-12-05 19:41] VITALS: BP 128/88
== END 2018-12-05 19:41 | disposition home or self-care (01) ==
LOC: EDUNIT# 16:01 → ER 16:03
DX: R42 Dizziness and giddiness (principal); N39.0 Urinary tract infection, site not specified; H65.92 Unspecified nonsuppurative otitis media, left ear; J45.909 Unspecified asthma, uncomplicated; I10 Essential (primary) hypertension; G40.909 Epilepsy, unspecified, not intractable, without status epilepticus; F41.9 Anxiety disorder, unspecified; F17.210 Nicotine dependence, cigarettes, uncomplicated; E66.9 Obesity, unspecified; Z68.37 Body mass index [BMI] 37.0-37.9, adult
CPT/HCPCS: 36415; 70450; 80053; 80306; 81000; 82150; 83690; 83735; 84484; 84703; 85025; 87077; 87088; 87186; 93005; 93041

== ENCOUNTER 2019-02-16 23:55 | Emergency (ER) | payer MEDICAID ==
[~2019-02-16] VITALS: Ht 178 cm; Wt 141.0 kg
[~2019-02-16 23:55] MED LIST changes: +CEFD300C3 PO; +MECL-106 PO; +ONDA4TAB11 PO; +SCOP1PAT11 TD
[2019-02-17 00:19] LABS: BASOPHILS % (AUTO) 0 % (0-10); EOSINOPHILS # (AUTO) 0.2 10^3/uL (0.0-0.3); EOSINOPHILS % (AUTO) 1 % (0-10); HEMATOCRIT 41 % (35-52); HEMOGLOBIN 13.3 G/DL (11.5-16.0); LYMPHOCYTES # (AUTO) 4.8 X 10^3 (1.0-4.0); LYMPHOCYTES % (AUTO) 31 % (12-44); MEAN CORPUSCULAR HEMOGLOBIN 29 PG (25-34); MEAN CORPUSCULAR HGB CONC 33 G/DL (32-36); MEAN CORPUSCULAR VOLUME 89 FL (80-99); MEAN PLATELET VOLUME 10.9 FL (7.4-10.4); MONOCYTES # (AUTO) 1.9 X 10^3 (0.0-1.0); MONOCYTES % (AUTO) 12 % (0-12); NEUTROPHILS # (AUTO) 8.5 X 10^3 (1.8-7.8); NEUTROPHILS % (AUTO) 55 % (42-75); PLATELET COUNT 261 10^3/uL (130-400); RED CELL DISTRIBUTION WIDTH 13.9 % (10.0-14.5); WHITE BLOOD COUNT 15.5 10^3/uL (4.3-11.0)
[2019-02-17 00:32] LABS: BILIRUBIN,URINE NEGATIVE (NEGATIVE); CLARITY,URINE CLEAR; COLOR,URINE YELLOW; GLUCOSE, URINE (UA) NEGATIVE (NEGATIVE); KETONES,URINE NEGATIVE (NEGATIVE); LEUKOCYTE ESTERASE ,URINE NEGATIVE (NEGATIVE); NITRITE,URINE NEGATIVE (NEGATIVE); PROTEIN,URINE TRACE (NEGATIVE)
[2019-02-17 00:34] LABS: BACTERIA,URINE NEGATIVE /HPF
[2019-02-17 00:37] LABS: ALANINE AMINOTRANSFERASE 13 U/L (0-55); ALBUMIN 4.1 GM/DL (3.2-4.5); ALKALINE PHOSPHATASE 67 U/L (40-136); BILIRUBIN,TOTAL 0.2 MG/DL (0.1-1.0); BUN/CREATININE RATIO 12; CALCIUM 9.4 MG/DL (8.5-10.1); CARBON DIOXIDE 20 MMOL/L (21-32); CHLORIDE 110 MMOL/L (98-107); CREATININE SERUM 0.82 MG/DL (0.60-1.30); GFR ESTIMATED > 60; GLUCOSE 114 MG/DL (70-105); POTASSIUM 3.8 MMOL/L (3.6-5.0); SALICYLATE < 5.0 MG/DL (5.0-20.0); SODIUM 143 MMOL/L (135-145); TOTAL PROTEIN 7.5 GM/DL (6.4-8.2)
[2019-02-17 00:38] LABS: AMPHETAMINE SCREEN, URINE NEGATIVE (NEGATIVE); BARBITURATE SCREEN URINE NEGATIVE (NEGATIVE); BENZODIAZEPINES SCREEN URINE NEGATIVE (NEGATIVE); CANNABINOID SCREEN, URINE NEGATIVE (NEGATIVE); COCAINE SCREEN URINE NEGATIVE (NEGATIVE); METHADONE STAT NEGATIVE (NEGATIVE); METHAMPHETAMINE SCREEN URINE S NEGATIVE (NEGATIVE); OPIATE SCREEN URINE NEGATIVE (NEGATIVE); OXYCODONE STAT NEGATIVE (NEGATIVE); PROPOXYPHENE STAT NEGATIVE (NEGATIVE); TRICYCLIC ANTIDEPRESSANTS SCRE NEGATIVE (NEGATIVE)
[2019-02-17 00:44] LABS: EOSINOPHILS % (MANUAL) 1 %; LYMPHOCYTES % (MANUAL) 36 %; MONOCYTES % (MANUAL) 10 %; NEUTROPHILS % (MANUAL) 53 %
[2019-02-17 00:45] LABS: RBC MORPH NORMAL
[2019-02-17 00:57] LABS: TSH (THYROID ANALYZER) 2.07 UIU/ML (0.35-4.94)
[2019-02-17 01:02] LABS: ACETAMINOPHEN < 10 UG/ML (10-30)
--- NOTE | 2019-02-17 01:26 | ED Psychosocial ---
General Chief Complaint: Psych/Social Disorder Stated Complaint: ANXIETY Nursing Triage Note: anxiety, soa /p verbal altercation. Allergies and Home Medications Allergies Coded Allergies: No Known Drug Allergies (Unverified , 11/12/08) Home Medications Amoxicillin 875 Mg Tablet, 875 MG PO BID Prescribed by: YOON HIDALGO on 10/27/18 113 Amoxicillin/Potassium Clav 1 Each Tablet, 1 EACH PO BID Prescribed by: AVERY TORRES on 11/01/182120 Amoxicillin/Potassium Clav 1 Each Tablet, 1 EACH PO BID Prescribed by: JULIO CÉSAR SCHMITT on 11/13/18 131 Cefdinir 300 Mg Capsule, 300 MG PO BID Prescribed by: YOON HIDLAGO on 12/05/181922 Cephalexin 500 Mg Capsule, 500 MG PO QID Prescribed by: AVERY TORRES on 03/09/181849 Cyclobenzaprine HCl 10 Mg Tablet, 10 MG PO TID PRN for SPASMS Prescribed by: FRANKY VINSON on 11/15/16 0004 Cyclobenzaprine HCl 10 Mg Tablet, 10 MG PO Q8H PRN for SPASMS Prescribed by: CRISELDA ARAUJO on 08/05/17 1609 D-Methorphan Hb/P-Epd HCl/Bpm 118 Ml Syrup, 5 ML PO Q4H PRN for COUGH Prescribed by: AVERY TORRES on 03/14/17 155 Fluticasone Propionate 9.9 Ml [place].susp, 2 SPRAYS NS BID Prescribed by: YOON HIDALGO on 10/27/18 113 Loratadine/Pseudoephedrine 1 Each Tab.er.12h, 1 EACH PO BID Prescribed by: YOON HIDALGO on 10/27/18 113 Meclizine HCl 25 Mg Tablet, 25-50 MG PO Q6H Prescribed by: YOON HIDALGO on 12/05/181922 Mupirocin 22 Gm Oint...g., 22 GM TP TID Prescribed by: JULIO CÉSAR SCHMITT on 11/13/18 131 Naproxen 500 Mg Tablet, 500 MG PO BID PRN for PAIN-MODERATE TO SEVERE Prescribed by: AVERY TORRES on 03/09/181850 Ondansetron 8 Mg Tab.rapdis, 8 MG PO Q6H PRN for PAIN-SEVERE Prescribed by: AVERY TORRES on 11/01/182120 Ondansetron 4 Mg Tab.rapdis, 4 MG PO Q4H Prescribed by: YOON HIDALGO on 12/05/181922 Prednisone 20 Mg Tab, 20 MG PO DAILY Prescribed by: FRANKY VINSON on 11/15/16 0004 Scopolamine 1 Each Patch.td72, 1 EACH TD Q72 HOURS Prescribed by: YOON HIDALGO on 12/05/181922 Past Mfkmddk-Rwaigh-Lkwyui Hx Patient Social History Alcohol Use: Denies Use Recreational Drug Use: No Smoking Status: Former Smoker Type Used: Cigarettes Former Smoker, Quit: Nov 02, 2018 2nd Hand Smoke Exposure: Yes Recent Foreign Travel: No Contact w/Someone Who Travel: No Recent Infectious Disease Expo: No Recent Hopitalizations: No Physical Abuse: No Sexual Abuse: No Mistreated: No Fear: No Immunizations Up To Date Tetanus Booster (TDap): Unknown Seasonal Allergies Seasonal Allergies: No Past Medical History Surgeries: No Respiratory: Yes Asthma Cardiac: Yes High Cholesterol, Hypertension Neurological: Yes Developmental Disorder, Seizure Disorder : No Female Reproductive Disorders: Polycystic Ovarian Dis Genitourinary: No Gastrointestinal: No Musculoskeletal: No Endocrine: Yes (OBESITY, HIRSUITISM) HEENT: Yes (SPEECH IMPEDIMENT; POOR DENTITION) Cancer: No Psychosocial: Yes Anxiety Integumentary: No Blood Disorders: No Adverse Reaction/Blood Tranf: No Physical Exam Vital Signs - First Documented 02/16/19 23:55 Temp 36.9 Pulse 101 Resp 20 B/P (MAP) 131/83 (99) Pulse Ox 98 O2 Delivery Room Air Capillary Refill : Less Than 3 Seconds Height, Weight, BMI Height: 6'0" Weight: 230lbs. 0oz. 104.321800ls; 44.00 BMI Method:Stated Progress/Results/Core Measures Results/Orders Lab Results Laboratory Tests Test 02/17/19 00:07 02/17/19 00:10 Range/Units Urine Color YELLOW Urine Clarity CLEAR Urine pH 7.0 5-9 Urine Specific [place] 1.020 1.016-1.022 Urine Protein TRACE NEGATIVE Urine Glucose (UA) NEGATIVE NEGATIVE Urine Ketones NEGATIVE NEGATIVE Urine Nitrite NEGATIVE NEGATIVE Urine Bilirubin NEGATIVE NEGATIVE Urine Urobilinogen 0.2 < = 1.0 MG/DL Urine Leukocyte Esterase NEGATIVE NEGATIVE Urine RBC (Auto) TRACE-I NEGATIVE Urine RBC NONE /HPF Urine WBC NONE /HPF Urine Crystals NONE /LPF Urine Bacteria NEGATIVE /HPF Urine Casts NONE /LPF Urine Mucus NEGATIVE /LPF Urine Culture Indicated NO Urine Opiates Screen NEGATIVE NEGATIVE Urine Oxycodone Screen NEGATIVE NEGATIVE Urine Methadone Screen NEGATIVE NEGATIVE Urine Propoxyphene Screen NEGATIVE NEGATIVE Urine Barbiturates Screen NEGATIVE NEGATIVE Ur Tricyclic Antidepressants Screen NEGATIVE NEGATIVE Urine Phencyclidine Screen NEGATIVE NEGATIVE Urine Amphetamines Screen NEGATIVE NEGATIVE Urine Methamphetamines Screen NEGATIVE NEGATIVE Urine Benzodiazepines Screen NEGATIVE NEGATIVE Urine Cocaine Screen NEGATIVE NEGATIVE Urine Cannabinoids Screen NEGATIVE NEGATIVE White Blood Count 15.5 H 4.3-11.0 10^3/uL Red Blood Count 4.60 4.35-5.85 10^6/uL Hemoglobin 13.3 11.5-16.0 G/DL Hematocrit 41 35-52 % Mean Corpuscular Volume 89 80-99 FL Mean Corpuscular Hemoglobin 29 25-34 PG Mean Corpuscular Hemoglobin Concent 33 32-36 G/DL Red Cell Distribution Width 13.9 10.0-14.5 % Platelet Count 261 130-400 10^3/uL Mean Platelet Volume 10.9 H 7.4-10.4 FL Neutrophils (%) (Auto) 55 42-75 % Lymphocytes (%) (Auto) 31 12-44 % Monocytes (%) (Auto) 12 0-12 % Eosinophils (%) (Auto) 1 0-10 % Basophils (%) (Auto) 0 0-10 % Neutrophils # (Auto) 8.5 H 1.8-7.8 X 10^3 Lymphocytes # (Auto) 4.8 H 1.0-4.0 X 10^3 Monocytes # (Auto) 1.9 H 0.0-1.0 X 10^3 Eosinophils # (Auto) 0.2 0.0-0.3 10^3/uL Basophils # (Auto) 0.0 0.0-0.1 10^3/uL Neutrophils % (Manual) 53 % Lymphocytes % (Manual) 36 % Monocytes % (Manual) 10 % Eosinophils % (Manual) 1 % Blood Morphology Comment NORMAL Sodium Level 143 135-145 MMOL/L Potassium Level 3.8 3.6-5.0 MMOL/L Chloride Level 110 H 98-107 MMOL/L Carbon Dioxide Level 20 L 21-32 MMOL/L Anion Gap 13 5-14 MMOL/L Blood Urea Nitrogen 10 7-18 MG/DL Creatinine 0.82 0.60-1.30 MG/DL Estimat Glomerular Filtration Rate > 60 BUN/Creatinine Ratio 12 Glucose Level 114 H 70-105 MG/DL Calcium Level 9.4 8.5-10.1 MG/DL Corrected Calcium 9.3 8.5-10.1 MG/DL Total Bilirubin 0.2 0.1-1.0 MG/DL Aspartate Amino Transf (AST/SGOT) 11 5-34 U/L Alanine Aminotransferase (ALT/SGPT) 13 0-55 U/L Alkaline Phosphatase 67 40-136 U/L Total Protein 7.5 6.4-8.2 GM/DL Albumin 4.1 3.2-4.5 GM/DL TSH Walker Testing 2.07 0.35-4.94 UIU/ML Salicylates Level < 5.0 L 5.0-20.0 MG/DL Acetaminophen Level < 10 L 10-30 UG/ML Serum Alcohol < 10 <10 MG/DL My Orders Orders - YOON HIDALGO DO Ed Iv/Invasive Line Start (02/16/19 23:59) Urine Bedside (02/16/19 23:59) Monitor-Rhythm Ecg Trace Only (02/16/19 23:59) Acetaminophen (02/16/19 23:59) Alcohol (02/16/19 23:59) Cbc With Automated Diff (02/16/19 23:59) Comprehensive Metabolic Panel (02/16/19 23:59) Drug Screen Stat (Urine) (02/16/19 23:59) Salicylate (02/16/19 23:59) Thyroid Analyzer (02/16/19 23:59) Ua Culture If Indicated (02/16/19 23:59) Manual Differential (02/17/19 00:10) Vital Signs/I&O 02/16/19 23:55 Temp 36.9 Pulse 101 Resp 20 B/P (MAP) 131/83 (99) Pulse Ox 98 O2 Delivery Room Air Blood Pressure Mean: 99 Departure Impression Primary Impression: Anxiety reaction Disposition: 01 HOME, SELF-CARE Condition: Improved Departure-Patient Inst. Referrals: CHAY ORDONEZ DO (PCP/Family) Primary Care Physician Patient Instructions: Anxiety, Adult (DC) Add. Discharge Instructions: HOME, REST CONTINUE YOUR REGULAR MEDICATIONS PRESCRIBED FOLLOW UP WITH YOUR DR IF SYMPTOMS RETURN All discharge instructions reviewed with patient and/or family. Voiced understanding. YOON HIDALGO DO Feb 17, 2019 01:26
[2019-02-17 01:47] VITALS: BP 137/87
== END 2019-02-17 01:49 | disposition home or self-care (01) ==
LOC: EDUNIT# 23:55 → ER 23:56
DX: F41.1 Generalized anxiety disorder (principal); J45.909 Unspecified asthma, uncomplicated; I10 Essential (primary) hypertension; E78.00 Pure hypercholesterolemia, unspecified; G40.909 Epilepsy, unspecified, not intractable, without status epilepticus; F89 Unspecified disorder of psychological development; E66.9 Obesity, unspecified; Z79.51 Long term (current) use of inhaled steroids; Z79.52 Long term (current) use of systemic steroids; Z87.891 Personal history of nicotine dependence
CPT/HCPCS: 36415; 80053; 80306; 80320; 80329; 81000; 84443; 84703; 85007; 85027; 93041

== ENCOUNTER 2019-03-26 19:51 | Emergency (ER) | payer MEDICAID ==
[~2019-03-26] VITALS: Ht 182.9 cm; Wt 142.9 kg
[~2019-03-26 19:51] MED LIST changes: -ARIP5TAB20 PO; +ARIP5TAB57 PO
[2019-03-26] MEDS ORDERED: AMOXICILLIN 500 MG (POLYMOX) CAP PO STA (21:08)
[2019-03-26] MEDS ORDERED: AMOX500C2 PO (21:11)
--- NOTE | 2019-03-26 21:11 | ED EENT ---
History of Present Illness General Chief Complaint: Ear Problems Stated Complaint: EAR PAIN Nursing Triage Note: Pt amb to triage with c/o Lt ear discomfort. Pt reports onset of symptoms to be approx 03/19/19. Pt reports increase in discomfort upon swallowing. Pt states, "it feels like its throbbing." Denies fever or chills. Source: patient Exam Limitations: no limitations History of Present Illness Date Seen by Provider: Mar 26, 2019 Time Seen by Provider: 21:08 Initial Comments To ER with left ear discomfort for a couple of days, about a week. Became worse this evening. Timing/Duration: gradual Location: ear (L) Associated Symptoms: No cough, No facial pain/swelling, No fever, No tooth pain Allergies and Home Medications Allergies Coded Allergies: No Known Drug Allergies (Unverified , 11/12/08) Home Medications Amoxicillin 875 Mg Tablet, 875 MG PO BID Prescribed by: YOON HIDALGO on 10/27/18 1139 Amoxicillin/Potassium Clav 1 Each Tablet, 1 EACH PO BID Prescribed by: AVERY TORRES on 11/01/18 2121 Amoxicillin/Potassium Clav 1 Each Tablet, 1 EACH PO BID Prescribed by: JULIO CÉSAR SCHMITT on 11/13/18 1312 Cefdinir 300 Mg Capsule, 300 MG PO BID Prescribed by: YOON HIDALGO on 12/05/18 1923 Cephalexin 500 Mg Capsule, 500 MG PO QID Prescribed by: AVERY TORRES on 03/09/18 1850 Cyclobenzaprine HCl 10 Mg Tablet, 10 MG PO TID PRN for SPASMS Prescribed by: FRANKY VINSON on 11/15/16 0004 Cyclobenzaprine HCl 10 Mg Tablet, 10 MG PO Q8H PRN for SPASMS Prescribed by: CRISELDA ARAUJO on 08/05/17 1609 D-Methorphan Hb/P-Epd HCl/Bpm 118 Ml Syrup, 5 ML PO Q4H PRN for COUGH Prescribed by: AVERY TORRES on 03/14/17 1551 Fluticasone Propionate 9.9 Ml [place].susp, 2 SPRAYS NS BID Prescribed by: YOON HIDALGO on 10/27/18 1139 Loratadine/Pseudoephedrine 1 Each Tab.er.12h, 1 EACH PO BID Prescribed by: YOON HIDALGO on 10/27/18 1139 Meclizine HCl 25 Mg Tablet, 25-50 MG PO Q6H Prescribed by: YOON HIDALGO on 12/05/181922 Mupirocin 22 Gm Oint...g., 22 GM TP TID Prescribed by: JULIO CÉSAR SCHMITT on 11/13/18 1312 Naproxen 500 Mg Tablet, 500 MG PO BID PRN for PAIN-MODERATE TO SEVERE Prescribed by: AVERY TORRES on 03/09/18 185 Ondansetron 8 Mg Tab.rapdis, 8 MG PO Q6H PRN for PAIN-SEVERE Prescribed by: AVERY TORRES on 11/01/182120 Ondansetron 4 Mg Tab.rapdis, 4 MG PO Q4H Prescribed by: YOON HIDALGO on 12/05/181922 Prednisone 20 Mg Tab, 20 MG PO DAILY Prescribed by: FRANKY VINSON on 11/15/16 0004 Scopolamine 1 Each Patch.td72, 1 EACH TD Q72 HOURS Prescribed by: YOON HIDALGO on 12/05/181922 Patient Home Medication List Home Medication List Reviewed: Yes Review of Systems Review of Systems Constitutional: see HPI Eyes: No Symptoms Reported Ears: See HPI, Pain Nose: no symptoms reported Throat: no symptoms reported Respiratory: no symptoms reported Cardiovascular: no symptoms reported Musculoskeletal: no symptoms reported Skin: no symptoms reported Neurological: No Symptoms Reported Hematologic/Lymphatic: No Symptoms Reported Immunological/Allergic: no symptoms reported Past Hywimaf-Bvbokx-Bxwvte Hx Patient Social History Alcohol Use: Denies Use Recreational Drug Use: No Smoking Status: Former Smoker Type Used: Cigarettes Former Smoker, Quit: Nov 02, 2018 2nd Hand Smoke Exposure: Yes Recent Foreign Travel: No Contact w/Someone Who Travel: No Recent Infectious Disease Expo: No Recent Hopitalizations: No Immunizations Up To Date Tetanus Booster (TDap): Unknown Seasonal Allergies Seasonal Allergies: No Past Medical History Surgeries: No Respiratory: Yes (USES ALBUTEROL DAILY--NO MAINTENANCE INHALER) Asthma Cardiac: Yes High Cholesterol, Hypertension Neurological: Yes Developmental Disorder, Seizure Disorder Female Reproductive Disorders: Polycystic Ovarian Dis Genitourinary: No Gastrointestinal: No Musculoskeletal: No Endocrine: Yes (OBESITY, HIRSUITISM) HEENT: Yes (SPEECH IMPEDIMENT; POOR DENTITION) Cancer: No Psychosocial: Yes Anxiety Integumentary: No Blood Disorders: No Adverse Reaction/Blood Tranf: No Physical Exam Vital Signs Vital Signs - First Documented 03/26/19 20:50 Temp 36.9 Pulse 93 Resp 18 B/P (MAP) 160/89 (112) Pulse Ox 98 O2 Delivery Room Air Height, Weight, BMI Height: 6'0" Weight: 230lbs. 0oz. 104.347006ju; 42.00 BMI Method:Stated General Appearance: WD/WN, no apparent distress Eyes: bilateral eye normal inspection, bilateral eye PERRL, bilateral eye EOMI Ears: left ear TM red, left ear TM bulging; bilateral ear auricle normal, bilateral ear canal normal, bilateral ear TM normal Mouth/Throat: normal mouth inspection, pharynx normal Neck: non-tender, full range of motion Cardiovascular: regular rate, rhythm, no murmur Respiratory: no respiratory distress, no accessory muscle use Neurologic/Psychiatric: alert, normal mood/affect, oriented x 3 Progress/Results/Core Measures Results/Orders Vital Signs/I&O 03/26/19 20:50 Temp 36.9 Pulse 93 Resp 18 B/P (MAP) 160/89 (112) Pulse Ox 98 O2 Delivery Room Air Blood Pressure Mean: 112 Departure Impression Primary Impression: Otitis media Qualified Codes: H66.002 - Acute suppurative otitis media without spontaneous rupture of ear drum, left ear Disposition: 01 HOME, SELF-CARE Condition: Stable Departure-Patient Inst. Decision time for Depature: 21:10 Referrals: CHAY ORDONEZ DO (PCP/Family) Primary Care Physician Patient Instructions: Ear Infections (Otitis Media) (DC), Skin Abscess, Vertigo (a Type of Dizziness) (DC) Add. Discharge Instructions: 1. Tylenol and ibuprofen for pain 2. Antibiotics as directed 3. Follow-up with your doctor next week All discharge instructions reviewed with patient and/or family. Voiced understanding. Scripts Amoxicillin (Amoxicillin) 500 Mg Capsule 500 MG PO TID, #21 CAP 0 Refills Prov: AVERY TORRES APRN 03/26/19 AVERY TORRES APRN Mar 26, 2019 21:11
[2019-03-26 21:20] VITALS: BP 156/88
== END 2019-03-26 21:20 | disposition home or self-care (01) ==
LOC: EDUNIT# 19:51 → ER 19:52
DX: H66.92 Otitis media, unspecified, left ear (principal); J45.909 Unspecified asthma, uncomplicated; E66.9 Obesity, unspecified; Z79.51 Long term (current) use of inhaled steroids; Z79.52 Long term (current) use of systemic steroids; Z87.891 Personal history of nicotine dependence; Z68.41 Body mass index [BMI] 40.0-44.9, adult; Z77.22 Contact with and (suspected) exposure to environmental tobacco smoke (acute) (chronic)
CPT/HCPCS: 99283

== ENCOUNTER 2019-04-18 20:19 | Emergency (ER) | payer MEDICAID ==
[~2019-04-18] VITALS: Ht 182.8 cm; Wt 142.9 kg
[~2019-04-18 20:19] MED LIST changes: -MECL-106 PO; +MECL-149 PO
[2019-04-18 20:29] VITALS: BP 166/90
--- NOTE | 2019-04-18 20:59 | ED Syncope ---
General Chief Complaint: Dizziness/Syncope Stated Complaint: DIZZY,CONGESTED Nursing Triage Note: C/O BEING DIZZY AND HAVING A HARD TIME STANDING, FEELING WEAK. History of Present Illness Date Seen by Provider: Apr 18, 2019 Time Seen by Provider: 20:35 Initial Comments 34-year-old female presents for vertigo and weakness. In addition she's been having bilateral ear. She is approximately 4 months gestation. She has not been seen by an OB doctor yet and is not taking vitamins. Timing/Prior Episodes: No Prior History Symptoms Prior to Episode: None Loss of Consciousness: No Loss of Consciousness Allergies and Home Medications Allergies Coded Allergies: No Known Drug Allergies (Unverified , 11/12/08) Home Medications Amoxicillin 875 Mg Tablet, 875 MG PO BID Prescribed by: YOON HIDALGO on 10/27/18 1139 Amoxicillin 500 Mg Capsule, 500 MG PO TID Prescribed by: AVERY TORRES on 03/26/19 2111 Amoxicillin/Potassium Clav 1 Each Tablet, 1 EACH PO BID Prescribed by: AVERY TORRES on 11/01/181 Amoxicillin/Potassium Clav 1 Each Tablet, 1 EACH PO BID Prescribed by: JULIO CÉSAR SCHMITT on 11/13/18 1312 Cefdinir 300 Mg Capsule, 300 MG PO BID Prescribed by: YOON HIDALGO on 12/05/18 1923 Cephalexin 500 Mg Capsule, 500 MG PO QID Prescribed by: AVERY TORRES on 03/09/18 1850 Cyclobenzaprine HCl 10 Mg Tablet, 10 MG PO TID PRN for SPASMS Prescribed by: FRANKY VINSON on 11/15/16 0004 Cyclobenzaprine HCl 10 Mg Tablet, 10 MG PO Q8H PRN for SPASMS Prescribed by: CRISELDA ARAUJO on 08/05/17 1609 D-Methorphan Hb/P-Epd HCl/Bpm 118 Ml Syrup, 5 ML PO Q4H PRN for COUGH Prescribed by: AVERY TORRES on 03/14/17 1551 Fluticasone Propionate 9.9 Ml [place].susp, 2 SPRAYS NS BID Prescribed by: YOON HIDALGO on 10/27/18 1139 Loratadine/Pseudoephedrine 1 Each Tab.er.12h, 1 EACH PO BID Prescribed by: YOON HIDALGO on 10/27/18 1139 Meclizine HCl 25 Mg Tablet, 25-50 MG PO Q6H Prescribed by: YOON HIDALOG on 12/05/181922 Mupirocin 22 Gm Oint...g., 22 GM TP TID Prescribed by: JULIO CÉSAR SCHMITT on 11/13/18 1312 Naproxen 500 Mg Tablet, 500 MG PO BID PRN for PAIN-MODERATE TO SEVERE Prescribed by: AVERY TORRES on 03/09/181850 Ondansetron 8 Mg Tab.rapdis, 8 MG PO Q6H PRN for PAIN-SEVERE Prescribed by: AVERY TORRES on 11/01/182120 Ondansetron 4 Mg Tab.rapdis, 4 MG PO Q4H Prescribed by: YOON HIDALGO on 12/05/181922 Prednisone 20 Mg Tab, 20 MG PO DAILY Prescribed by: FRANKY VINSON on 11/15/16 0004 Scopolamine 1 Each Patch.td72, 1 EACH TD Q72 HOURS Prescribed by: YOON HIDALGO on 12/05/181922 Patient Home Medication List Home Medication List Reviewed: Yes Review of Systems Constitutional: see HPI, dizziness; No fever; malaise, weakness EENTM: no symptoms reported, ear pain Respiratory: see HPI, cough : Yes (per patient report) Musculoskeletal: no symptoms reported, see HPI All Other Systems Reviewed Negative Unless Noted: Yes Past Nfdkuvg-Flpmbj-Mgnlnv Hx Past Med/Social Hx: Reviewed Nursing Past Med/Soc Hx Patient Social History Alcohol Use: Denies Use Recreational Drug Use: No Smoking Status: Former Smoker Type Used: Cigarettes Former Smoker, Quit: Nov 02, 2018 2nd Hand Smoke Exposure: Yes Recent Foreign Travel: No Contact w/Someone Who Travel: No Recent Infectious Disease Expo: No Recent Hopitalizations: No Physical Abuse: No Sexual Abuse: No Mistreated: No Fear: No Immunizations Up To Date Tetanus Booster (TDap): Unknown Seasonal Allergies Seasonal Allergies: No Past Medical History Surgeries: No Respiratory: Yes Asthma Cardiac: Yes High Cholesterol, Hypertension Neurological: Yes Developmental Disorder, Seizure Disorder : Yes Last Menstrual Period: Feb 14, 2019 Female Reproductive Disorders: Polycystic Ovarian Dis Genitourinary: No Gastrointestinal: No Musculoskeletal: No Endocrine: Yes (OBESITY, HIRSUITISM) HEENT: Yes (SPEECH IMPEDIMENT; POOR DENTITION) Cancer: No Psychosocial: Yes Anxiety Integumentary: No Blood Disorders: No Adverse Reaction/Blood Tranf: No Physical Exam Vital Signs Vital Signs - First Documented 04/18/19 20:29 Temp 36.5 Pulse 88 Resp 18 B/P (MAP) 166/90 (115) Pulse Ox 99 Capillary Refill : Less Than 3 Seconds Height, Weight, BMI Height: 6'0" Weight: 230lbs. 0oz. 104.298841jo; 42.00 BMI Method:Stated General Appearance: No Apparent Distress, WD/WN, Other (hirsutism ) HEENT: PERRL/EOMI, Pharynx Normal, Moist Mucous Membranes, TM Abnormal (L) (. Erythema in canal, TM ruptured), TM Abnormal (R) (erythema in canal, TM bulging) Neck: Full Range of Motion, Normal Inspection, Non Tender, Supple Cardiovascular: Regular Rate, Rhythm, No Edema, No Murmur, Normal Peripheral Pulses Respiratory: Chest Non Tender, Lungs Clear, Normal Breath Sounds Gastrointestinal: Normal Bowel Sounds, Non Tender, Soft Back: Normal Inspection, No CVA Tenderness, No Vertebral Tenderness Extremities: Normal Capillary Refill, Normal Inspection, Normal Range of Motion, Non Tender Neurologic/Psychiatric: Alert, Oriented x3, No Motor/Sensory Deficits, Normal Mood/Affect Skin: Normal Color, Warm/Dry Progress/Results/Core Measures Results/Orders My Orders Orders - JULIO CÉSAR SCHMITT Influenza A And B Antigens (04/18/19 20:21) Vital Signs/I&O 04/18/19 20:29 Temp 36.5 Pulse 88 Resp 18 B/P (MAP) 166/90 (115) Pulse Ox 99 Blood Pressure Mean: 115 Departure Impression Primary Impression: Influenza A Additional Impressions: Ruptured tympanic membrane Qualified Codes: H72.92 - Unspecified perforation of tympanic membrane, left ear Vertigo Disposition: 01 HOME, SELF-CARE Condition: Improved Departure-Patient Inst. Decision time for Depature: 20:55 Referrals: CHAY ORDONEZ DO (PCP/Family) Primary Care Physician Patient Instructions: Vertigo (a Type of Dizziness) (DC), Ruptured Eardrum (DC), Flu, Adult (DC) Add. Discharge Instructions: You may take Tylenol 650 mg every 6 hours for pain or fever. Establish care and follow-up with an OB doctor. Begin taking a vitamin daily. Increase oral hydration, 16 ounces of water every 2 hours while awake. Rest and stay home until you are feeling better and fever free for 24 hours without medication. You have influenza A and it will be 5 to 7 days before you're feeling better. Take the Tamiflu as prescribed. If symptoms are not improving or worsen please follow-up with your primary care provider or OB doctor. Take antibiotic as prescribed for your urinary infection. Return to the emergency department for new, urgent health care problems. All discharge instructions reviewed with patient and/or family. Voiced understanding. Scripts Amoxicillin (Amoxicillin) 875 Mg Tablet 875 MG PO BID, #14 TAB 0 Refills Prov: JULIO CÉSAR SCHMITT 04/18/19 Copy Copies To 1: CHAY ORDONEZ DO Copies To 2: LEON VICTORIA DO JULIO CÉSAR SCHMITT Apr 18, 2019 20:59
[2019-04-18] MEDS ORDERED: AMOX875T2 PO (21:00)
[2019-04-18] MEDS ORDERED: RX-AMOXICILLIN 500 MG CAP #3 PPK PO STA (21:01)
[2019-04-18] MEDS ORDERED: RX-OSELTAMIVIR 75 MG (TAMIFLU) BOX OF 10 PO STA (21:01)
== END 2019-04-18 21:06 | disposition home or self-care (01) ==
LOC: EDUNIT# 20:19 → ER 20:20
DX: J11.1 Influenza due to unidentified influenza virus with other respiratory manifestations (principal); H72.92 Unspecified perforation of tympanic membrane, left ear; E66.9 Obesity, unspecified; Z79.51 Long term (current) use of inhaled steroids; Z87.891 Personal history of nicotine dependence; Z79.52 Long term (current) use of systemic steroids; Z68.41 Body mass index [BMI] 40.0-44.9, adult
CPT/HCPCS: 87804

== ENCOUNTER 2019-04-30 18:37 | Emergency (ER) | payer MEDICAID ==
[~2019-04-30] VITALS: Ht 182 cm; Wt 130.0 kg
[2019-04-30 18:40] VITALS: BP 145/115
--- NOTE | 2019-04-30 18:56 | ED Neurological Problem ---
General Chief Complaint: Neuro-Stroke Like Symptoms Stated Complaint: DIZZY, Nursing Triage Note: ARRIVED VIA AMB TO TRIAGE THEN BROUGHT TO ROOM 05. COMPLAINS OF DIZZINESS STARTING THIS AM AND TROUBLE SPEAKING STARTING AT 1700. PT STATES SHE IS 17 WEEKS GESTATION. Nursing Sepsis Screen: No Definite Risk Source: patient Exam Limitations: no limitations History of Present Illness Date Seen by Provider: Apr 30, 2019 Time Seen by Provider: 18:53 Initial Comments To ER by private vehicle with reports of dizziness since awakening this morning. Starting about 5 PM she states that she had some trouble speaking. She feels that it is back to normal now. She does report nausea and generally not feeling well. She is 17 weeks' gestation, has seen Dr. Lee and has a picture of the ultrasound, or picture of an ultrasound on her phone.. She does smoke cigarettes. She has no unilateral weakness no vision changes no trouble swallow ing no facial asymmetry. No fevers no chills no abdominal pain no vaginal bleeding. Severity: moderate Associated Symptoms: slurred speech, other Allergies and Home Medications Allergies Coded Allergies: No Known Drug Allergies (Unverified , 11/12/08) Home Medications Amoxicillin 875 Mg Tablet, 875 MG PO BID Prescribed by: YOON HIDALGO on 10/27/18 1139 Amoxicillin 500 Mg Capsule, 500 MG PO TID Prescribed by: AVERY TORRES on 03/26/19 211 Amoxicillin 875 Mg Tablet, 875 MG PO BID Prescribed by: JULIO CÉSAR SCHMITT on 04/18/19 2100 Amoxicillin/Potassium Clav 1 Each Tablet, 1 EACH PO BID Prescribed by: AVERY TORRES on 11/01/18 212 Amoxicillin/Potassium Clav 1 Each Tablet, 1 EACH PO BID Prescribed by: JULIO CÉSAR SCHMITT on 11/13/18 1312 Cefdinir 300 Mg Capsule, 300 MG PO BID Prescribed by: YOON HIDALGO on 12/05/18 1923 Cephalexin 500 Mg Capsule, 500 MG PO QID Prescribed by: AVERY TORRES on 03/09/18 1850 Cyclobenzaprine HCl 10 Mg Tablet, 10 MG PO TID PRN for SPASMS Prescribed by: FRANKY VINSON on 11/15/16 0004 Cyclobenzaprine HCl 10 Mg Tablet, 10 MG PO Q8H PRN for SPASMS Prescribed by: CRISELDA ARAUJO on 08/05/17 1609 D-Methorphan Hb/P-Epd HCl/Bpm 118 Ml Syrup, 5 ML PO Q4H PRN for COUGH Prescribed by: AVERY TORRES on 03/14/17 1551 Fluticasone Propionate 9.9 Ml [place].susp, 2 SPRAYS NS BID Prescribed by: YOON HIDALGO on 10/27/18 113 Loratadine/Pseudoephedrine 1 Each Tab.er.12h, 1 EACH PO BID Prescribed by: YOON HIDALGO on 10/27/18 113 Meclizine HCl 25 Mg Tablet, 25-50 MG PO Q6H Prescribed by: YOON HIDALGO on 12/05/181922 Mupirocin 22 Gm Oint...g., 22 GM TP TID Prescribed by: JULIO CÉSAR SCHMITT on 11/13/18 1312 Naproxen 500 Mg Tablet, 500 MG PO BID PRN for PAIN-MODERATE TO SEVERE Prescribed by: AVERY TORRES on 03/09/18 185 Ondansetron 8 Mg Tab.rapdis, 8 MG PO Q6H PRN for PAIN-SEVERE Prescribed by: AVERY TORRES on 11/01/182120 Ondansetron 4 Mg Tab.rapdis, 4 MG PO Q4H Prescribed by: YOON HIDALGO on 12/05/181922 Prednisone 20 Mg Tab, 20 MG PO DAILY Prescribed by: FRANKY VINSON on 11/15/16 0004 Scopolamine 1 Each Patch.td72, 1 EACH TD Q72 HOURS Prescribed by: YOON HIDALGO on 12/05/181922 Patient Home Medication List Home Medication List Reviewed: Yes Review of Systems Review of Systems Constitutional: see HPI Eyes: No Symptoms Reported Ears, Nose, Mouth, Throat: no symptoms reported Respiratory: no symptoms reported Cardiovascular: no symptoms reported Genitourinary: no symptoms reported Expected Date of Delivery: Oct 07, 2019 Musculoskeletal: no symptoms reported Skin: no symptoms reported Psychiatric/Neurological: No Symptoms Reported Endocrine: No Symptoms Reported Hematologic/Lymphatic: No Symptoms Reported Past Lldqmpf-Ulfzrk-Gfzgnu Hx Patient Social History Alcohol Use: Denies Use Recreational Drug Use: No Smoking Status: Current Everyday Smoker Type Used: Cigarettes Former Smoker, Quit: Nov 02, 2018 2nd Hand Smoke Exposure: Yes Recent Foreign Travel: No Contact w/Someone Who Travel: No Recent Infectious Disease Expo: No Recent Hopitalizations: No Immunizations Up To Date Tetanus Booster (TDap): Unknown Seasonal Allergies Seasonal Allergies: No Past Medical History Surgeries: No Respiratory: Yes Asthma Cardiac: Yes High Cholesterol, Hypertension Neurological: Yes Developmental Disorder, Seizure Disorder : Yes Expected Date of Delivery: Oct 07, 2019 Female Reproductive Disorders: Polycystic Ovarian Dis Genitourinary: No Gastrointestinal: No Musculoskeletal: No Endocrine: Yes (OBESITY, HIRSUITISM) HEENT: Yes (SPEECH IMPEDIMENT; POOR DENTITION) Cancer: No Psychosocial: Yes Anxiety Integumentary: No Blood Disorders: No Adverse Reaction/Blood Tranf: No Physical Exam Vital Signs Vital Signs - First Documented 04/30/19 18:40 Temp 36.8 Pulse 129 Resp 18 B/P (MAP) 145/115 (125) Pulse Ox 97 Capillary Refill : Less Than 3 Seconds Height, Weight, BMI Height: 6'0" Weight: 230lbs. 0oz. 104.459345ya; 39.00 BMI Method:Stated General Appearance: WD/WN, no apparent distress HEENT: PERRL/EOMI, normal ENT inspection, TMs normal Neck: non-tender, full range of motion Respiratory: no respiratory distress, no accessory muscle use Gastrointestinal: normal bowel sounds, non tender, soft Neurologic/Psychiatric: alert, normal mood/affect, oriented x 3 Crainal Nerves: normal hearing, normal speech, PERRL Skin: normal color, warm/dry Stroke NIH Stroke Scale Assessment Level of Consciousness: 0=Alert (0), Level of Consciousness-Questions: 0=Answers both month/age (0), LOC Commands: 0=Performs both tasks (0), Visual Matos: 0=No visual loss (0), Facial Movement (Facial Paresis): 0=Normal symmetrical mnt (0), Motor Function-Arms Right: 0=No drift (0), Motor Function-Legs Right: 0=No drift (0), Motor Function-Legs Left: 0=No drift (0), Limb Ataxia: 0=Absent (0), Sensory: 0=Normal:no loss (0), Best Language: 0=No aphasia (0), Dysarthria: 1=Mild to moderate loss (1), Extinction & Inattention: 0=No abnormality (0), Total: 1 Progress/Results/Core Measures Results/Orders Lab Results Laboratory Tests Test 04/30/19 18:49 04/30/19 19:00 Range/Units Glucometer 98 70-110 MG/DL White Blood Count 16.3 H 4.3-11.0 10^3/uL Red Blood Count 5.01 4.35-5.85 10^6/uL Hemoglobin 14.4 11.5-16.0 G/DL Hematocrit 44 35-52 % Mean Corpuscular Volume 87 80-99 FL Mean Corpuscular Hemoglobin 29 25-34 PG Mean Corpuscular Hemoglobin Concent 33 32-36 G/DL Red Cell Distribution Width 14.4 10.0-14.5 % Platelet Count 309 130-400 10^3/uL Mean Platelet Volume 10.4 7.4-10.4 FL Neutrophils (%) (Auto) 64 42-75 % Lymphocytes (%) (Auto) 26 12-44 % Monocytes (%) (Auto) 9 0-12 % Eosinophils (%) (Auto) 1 0-10 % Basophils (%) (Auto) 0 0-10 % Neutrophils # (Auto) 10.5 H 1.8-7.8 X 10^3 Lymphocytes # (Auto) 4.2 H 1.0-4.0 X 10^3 Monocytes # (Auto) 1.5 H 0.0-1.0 X 10^3 Eosinophils # (Auto) 0.1 0.0-0.3 10^3/uL Basophils # (Auto) 0.0 0.0-0.1 10^3/uL Neutrophils % (Manual) 67 % Lymphocytes % (Manual) 24 % Monocytes % (Manual) 8 % Eosinophils % (Manual) 0 % Basophils % (Manual) 0 % Band Neutrophils 0 % Reactive Lymphocytes 1 % Blood Morphology Comment NORMAL Prothrombin Time 14.1 12.2-14.7 SEC INR Comment 1.1 0.8-1.4 Activated Partial Thromboplast Time 33 24-35 SEC D-Dimer 0.32 0.00-0.49 UG/ML Sodium Level 141 135-145 MMOL/L Potassium Level 3.5 L 3.6-5.0 MMOL/L Chloride Level 106 98-107 MMOL/L Carbon Dioxide Level 20 L 21-32 MMOL/L Anion Gap 15 H 5-14 MMOL/L Blood Urea Nitrogen 10 7-18 MG/DL Creatinine 0.87 0.60-1.30 MG/DL Estimat Glomerular Filtration Rate > 60 BUN/Creatinine Ratio 11 Glucose Level 98 70-105 MG/DL Calcium Level 10.1 8.5-10.1 MG/DL Corrected Calcium 8.5-10.1 MG/DL Total Bilirubin 0.4 0.1-1.0 MG/DL Aspartate Amino Transf (AST/SGOT) 11 5-34 U/L Alanine Aminotransferase (ALT/SGPT) 10 0-55 U/L Alkaline Phosphatase 78 40-136 U/L Troponin I < 0.028 <0.028 NG/ML Total Protein 8.5 H 6.4-8.2 GM/DL Albumin 4.6 H 3.2-4.5 GM/DL Human Chorionic Gonadotropin, Quant < 5 <5 MIU/ML My Orders Orders - AVERY TORRES APRN Cbc With Automated Diff (04/30/19 18:51) Protime With Inr (04/30/19 18:51) Partial Thromboplastin Time (04/30/19 18:51) Comprehensive Metabolic Panel (04/30/19 18:51) Fibrin Degradation Products (04/30/19 18:51) Troponin I (04/30/19 18:51) Ua Culture If Indicated (04/30/19 18:51) Chest 1 View, Ap/Pa Only (04/30/19 18:51) Ekg Tracing (04/30/19 18:51) Nothing By Mouth (05/01/19 Breakfast) Accucheck Stat ONCE (04/30/19 18:51) Ed Iv/Invasive Line Start (04/30/19 18:51) Ed Iv/Invasive Line Start (04/30/19 18:51) Vital Signs Stroke Patient Q15M (04/30/19 18:51) Ct Head Wo-R/O Stroke (04/30/19 18:51) O2 (04/30/19 18:51) Intake & Output 06,14,22 (04/30/19 18:51) Monitor-Rhythm Ecg Trace Only (04/30/19 18:51) Dysphagia Screening Tool (04/30/19 18:51) Post Thrombolytic Adminstratio (04/30/19 18:51) Lipid Panel (05/01/19 06:00) Hcg,Quantitative (04/30/19 18:51) Promethazine Injection (Phenergan Injec (04/30/19 19:00) Ns Iv 1000 Ml (Sodium Chloride 0.9%) (04/30/19 19:00) Manual Differential (04/30/19 19:00) Medications Given in ED Current Medications Medications Dose Ordered Sig/Garth Route Start Time Stop Time Status Last Admin Dose Admin Promethazine HCl 12.5 mg ONCE ONCE IVP 04/30/19 19:00 04/30/19 19:01 DC 04/30/19 19:23 12.5 MG Vital Signs/I&O 04/30/19 18:40 Temp 36.8 Pulse 129 Resp 18 B/P (MAP) 145/115 (125) Pulse Ox 97 Blood Pressure Mean: 125 Progress Progress Note : Progress Note Upon arrival she scored a questionable 1.4 questionable dysarthria however I believe this to be baseline based on my previous experience with her. At this time, 1931-she is completely asymptomatic feels back to normal. Diagnostic Imaging Diagonstic Imaging: CT Comments NAME: SVETA VELA MED REC#: [id number] PT STATUS: REG ER : 1985 PHYSICIAN: AVERY TORRES APRN ADMIT DATE: 04/30/19/ER Draft Date of Exam:04/30/19 CT HEAD WO-R/O STROKE PROCEDURE: CT head wo r/o stroke. TECHNIQUE: Multiple contiguous axial images were obtained through the brain without the use of intravenous contrast. Auto Exposure Controls were utilized during the CT exam to meet ALARA standards for radiation dose reduction. INDICATION: Dizziness and dysarthria. COMPARISON is made to examination of 12/05/2018. CT HEAD: CT images of the head were obtained. FINDINGS: Ventricles and sulci are within normal limits for size. There is no intracranial hemorrhage identified. There is no abnormal mass effect or shift of midline structures. Dystrophic calcification is again seen at the level of the tentorium. IMPRESSION: Unremarkable CT of the head. Dictated on workstation # [id number] Dict: 04/30/191917 Trans: 04/30/191920 [facility] [id number] Interpreted by: DEISY CHOWDHURY MD Electronically signed by: Departure Communication (Admissions) 1946-advised the patient with Chaparro SILVA at the bedside that she is not , hCG less than 5. She immediately smiles and says "good". Doesn't seem to be surp rised by this. Asks for a glass of water. 2019-states she is feeling better. Still hasn't produced urine, advised her I would like for her to provide a urine sample, she states that she cannot pee, she would like to sign out. I advised that she'll need to sign out AGAINST MEDICAL ADVICE if she insists on leaving because I'm not ready to discharge her without urinalysis. She agrees to sign out against advice. Impression Primary Impression: Transient dysarthria Additional Impression: Negative test Disposition: HOME, SELF-CARE Condition: Stable Departure-Patient Inst. Decision time for Depature: 19:50 Referrals: CHAY ORDONEZ DO (PCP/Family) Primary Care Physician Patient Instructions: NO INSTRUCTIONS GIVEN Add. Discharge Instructions: 1. Return to ER for any concerns 2. Follow-up with Dr. Dr. Ordonez next week. All discharge instructions reviewed with patient and/or family. Voiced understanding. AVERY TORRES APRN Apr 30, 2019 18:55
[2019-04-30] MEDS ORDERED: PROMETHAZINE INJ 25 MG/ML (PHENERGAN) AMP IVP ONE (19:00)
[2019-04-30] MEDS ORDERED: NS IV 1000 ML 1,000 ML IV SCH (19:00)
[2019-04-30 19:08] LABS: BASOPHILS % (AUTO) 0 % (0-10); EOSINOPHILS # (AUTO) 0.1 10^3/uL (0.0-0.3); EOSINOPHILS % (AUTO) 1 % (0-10); HEMATOCRIT 44 % (35-52); HEMOGLOBIN 14.4 G/DL (11.5-16.0); LYMPHOCYTES # (AUTO) 4.2 X 10^3 (1.0-4.0); LYMPHOCYTES % (AUTO) 26 % (12-44); MEAN CORPUSCULAR HEMOGLOBIN 29 PG (25-34); MEAN CORPUSCULAR HGB CONC 33 G/DL (32-36); MEAN CORPUSCULAR VOLUME 87 FL (80-99); MEAN PLATELET VOLUME 10.4 FL (7.4-10.4); MONOCYTES # (AUTO) 1.5 X 10^3 (0.0-1.0); MONOCYTES % (AUTO) 9 % (0-12); NEUTROPHILS # (AUTO) 10.5 X 10^3 (1.8-7.8); NEUTROPHILS % (AUTO) 64 % (42-75); PLATELET COUNT 309 10^3/uL (130-400); RED CELL DISTRIBUTION WIDTH 14.4 % (10.0-14.5); WHITE BLOOD COUNT 16.3 10^3/uL (4.3-11.0)
--- NOTE | 2019-04-30 19:21 | Diagnostic Imaging Report ---
PROCEDURE: CT head wo r/o stroke. TECHNIQUE: Multiple contiguous axial images were obtained through the brain without the use of intravenous contrast. Auto Exposure Controls were utilized during the CT exam to meet ALARA standards for radiation dose reduction. INDICATION: Dizziness and dysarthria. COMPARISON is made to examination of 12/05/2018. CT HEAD: CT images of the head were obtained. FINDINGS: Ventricles and sulci are within normal limits for size. There is no intracranial hemorrhage identified. There is no abnormal mass effect or shift of midline structures. Dystrophic calcification is again seen at the level of the tentorium. IMPRESSION: Unremarkable CT of the head. Dictated by: Dictated on workstation # [id number]
[2019-04-30 19:23] LABS: FIBRIN DEGRADATION PRODUCTS 0.32 UG/ML (0.00-0.49); INR 1.1 (0.8-1.4); PROTHROMBIN TIME PATIENT 14.1 SEC (12.2-14.7)
--- NOTE | 2019-04-30 19:23 | Diagnostic Imaging Report ---
Indication: Dizziness AP view of chest is obtained with comparison made study of 03/14/2017. FINDINGS: Heart size and pulmonary vascularity are within normal limits, and the lungs are clear, bilaterally. IMPRESSION: Unremarkable chest. Dictated by: Dictated on workstation # [id number]
[2019-04-30 19:27] LABS: ALANINE AMINOTRANSFERASE 10 U/L (0-55); ALBUMIN 4.6 GM/DL (3.2-4.5); ALKALINE PHOSPHATASE 78 U/L (40-136); BILIRUBIN,TOTAL 0.4 MG/DL (0.1-1.0); BUN/CREATININE RATIO 11; CALCIUM 10.1 MG/DL (8.5-10.1); CARBON DIOXIDE 20 MMOL/L (21-32); CHLORIDE 106 MMOL/L (98-107); CREATININE SERUM 0.87 MG/DL (0.60-1.30); GFR ESTIMATED > 60; GLUCOSE 98 MG/DL (70-105); POTASSIUM 3.5 MMOL/L (3.6-5.0); SODIUM 141 MMOL/L (135-145); TOTAL PROTEIN 8.5 GM/DL (6.4-8.2)
[2019-04-30 19:32] LABS: BAND NEUTROPHILS 0 %; BASOPHILS % (MANUAL) 0 %; EOSINOPHILS % (MANUAL) 0 %; LYMPHOCYTES % (MANUAL) 24 %; MONOCYTES % (MANUAL) 8 %; NEUTROPHILS % (MANUAL) 67 %; RBC MORPH NORMAL; REACTIVE LYMPHOCYTES 1 %
--- OUTSIDE RECORDS SUMMARY | 2019-05-01 02:09 | XMS REPORT ---
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 269.00 9:55am Capillary Refill Capillary Refill Less Than 3 Seconds 10/27/2018 9:55am Vital Response Date/Time Temperature Source Tympanic 10/28/2018 12:50am Temperature (Celsius) 37.1 degrees C (36.4 - 37.5) 10/28/2018 12:50am Pulse Rate (adult) 100 bpm (60 - 90) 10/28/2018 12:50am Respiratory Rate 19 bpm (12 - 24) 10/28/2018 12:50am O2 Sat by Pulse Oximetry 99 % (88 - 100) 10/28/2018 12:50am Blood Pressure 141/79 mm Hg 10/28/2018 12:50am Blood Pressure Mean 99 mm Hg (65 - 110) 10/28/2018 12:50am Pain Numeric Pain Scale 6 1:07am Height (Centimeters) 182.8 cm 10/28/2018 12:50am Height Method Stated 12:50am Weight (Calculated Grams) 306216.000 gm 10/28/2018 12:50am Weight (Kilograms) 150.0 kg 10/28/2018 12:50am Calculated BMI 44.00 12:50am Capillary Refill Capillary Refill Less Than 3 Seconds 10/28/2018 12:50am Vital Response Date/Time Temperature Source Tympanic 11/01/2018 10:01pm Temperature (Celsius) 37.1 degrees C (36.4 - 37.5) 11/01/2018 10:01pm Pulse Rate (adult) 69 bpm (60 - 90) 11/01/2018 10:01pm Respiratory Rate 18 bpm (12 - 24) 11/01/2018 10:01pm O2 Sat by Pulse Oximetry 98 % (88 - 100) 11/01/2018 10:01pm Blood Pressure 132/95 mm Hg 11/01/2018 10:01pm Blood Pressure Mean 113 mm Hg (65 - 110) 11/01/2018 10:01pm Pain Numeric Pain Scale 0-No Pain 11/01/2018 10:01pm Height (Centimeters) 182.8 cm 11/01/2018 8:45pm Height Method Stated 8:45pm Weight (Calculated Grams) 961727.000 gm 11/01/2018 8:45pm Weight (Kilograms) 134.0 kg 11/01/2018 8:45pm Calculated BMI 40.00 8:45pm Weight Measurement Method Standing Scale 11/01/2018 8:45pm Capillary Refill Capillary Refill Less Than 3 Seconds 11/01/2018 8:45pm Vital Response Date/Time Temperature Source Tympanic 11/13/2018 1:19pm Temperature (Celsius) 36.6 degrees C (36.4 - 37.5) 11/13/2018 1:19pm Pulse Rate (adult) 88 bpm (60 - 90) 11/13/2018 1:19pm Respiratory Rate 17 bpm (12 - 24) 11/13/2018 1:19pm O2 Sat by Pulse Oximetry 95 % (88 - 100) 11/13/2018 1:19pm Blood Pressure 160/105 mm Hg 11/13/2018 1:19pm Blood Pressure Mean 123 mm Hg (65 - 110) 11/13/2018 1:19pm Pain Numeric Pain Scale 6 1:19pm Height (Centimeters) 182.8 cm 11/13/2018 12:12pm Height Method Stated 8:45pm Weight (Calculated Grams) 819523.000 gm 11/13/2018 12:12pm Weight (Kilograms) 136.5 kg 11/13/2018 12:12pm Calculated BMI 40.00 12:12pm Weight Measurement Method Standing Scale 11/13/2018 12:12pm Capillary Refill Capillary Refill Less Than 3 Seconds 11/13/2018 12:12pm Vital Reading Result Col lection Date/Time Vital Reading Result Col lection Date/Time Interventions No Information Plan of Treatment Normalized Care Care Detail Care Activity Date Care Provider F acility Activity Bacteria identified no information no information CHAY MONIQUE NDER [place] [facility] [address] [place] [address] ([id number]) Patient Education no information no information CHAY ILEANASTEWART ER [place] [facility] [address] [place] [address] ([id number]) Patient referral no information no information CHAY ILEANASAMUEL R [place] [facility] [address] [place] [address] ([id number]) Goals Patient Goal Desired Goal no information no information Social History Normalized Code Original Code Date Value Tobacco smoking status Tobacco smoking status no information Smokes tobacco daily NHIS NHIS (finding) no information no information 07-07-2014 Denies Use no information no information 07-07-2014 No no information no information 11-13-2018 Denies no information no information 11-13-2018 Current Everyda y Smoker no information no information 11-13-2018 Cigarettes Sex Assigned At Sex Assigned At 1985 - - Female Functional Status The data below is from unstructured sourcesNo functional status results.No functional status results.No functional status results.No functional status results.No functional status results.No functional status information available.No functional status information available.No functional status information available.No functional status information available.No functional status information available.No functional status information availab le.No functional status information available.No functional status information a vailable.No functional status information available.No functional status informa tion available.No functional status information available.No functional status i nformation available.No functional status information available.No functional st atus information available.No Functional Status information availableNo Function al Status information availableNo Functional Status information availableNo Func tional Status information available Mental Status The data below is from unstructured sourcesNo Mental Status Information AvailableNo Mental Status Information AvailableNo Mental Status Information Available Encounters Encounter Normalized Encounter Encounter Diagnosis Care Provi keshia Organization Date Type 03-26-2019 Emergency department no information AVERY LLOYD (no [facility] - patient visit phone) [facility] 03-26-2019 TONIA ARMENTA (no (no phone) phone) 02-16-2019 Emergency department no information LYNNE HIDALGO (no [facility] - patient visit phone) [facility] 02-16-2019 (no phone) 12-05-2018 Emergency department no information (no phone) [facility] (no phone) 12-05-2018 Emergency department no information LYNNE HIDALGO (no [facility] - patient visit phone) [facility] 12-05-2018 (no phone) 11-13-2018 Emergency department no information (no phone) [facility] - patient visit Hospital (no phone) 11-13-2018 11-13-2018 Emergency department no information JULIO CÉSAR [facility] no organization name - patient visit (no phone ) 11-13-2018 11-13-2018 Emergency department no information JULIO CÉSAR LUBIN (no [facility] - patient visit phone) [facility] 11-13-2018 (no phone) 11-01-2018 Emergency department no information (no phone) [facility] - patient visit Hospital (no phone) 11-02-2018 11-01-2018 Emergency department no information AVERY SARGENT no organization name - patient visit Work Phone: (no phone) 11-01-2018 AVERY TORRES 11-01-2018 Emergency department no information AVERY LLOYD (no [facility] - patient visit phone) [facility] 11-01-2018 (no phone) 10-28-2018 Emergency department no information (no phone) [facility] - patient visit Hospital (no phone) 10-28-2018 10-28-2018 Emergency department no information RAYMUNDO BARON Work no organization name - patient visit (no phone ) 10-28-2018 RAYMUNDO BARON RAYMUNDO BARON 10-27-2018 Emergency department no information RAYMUNDO BARON MD (no [facility] - patient visit phone) [facility] 10-27-2018 (no phone) 10-27-2018 Emergency department no information (no phone) [facility] - patient visit Hospital (no phone) 10-27-2018 10-27-2018 Emergency department no information LYNNE Jeri TREVIZOO Wor k no organization name - patient visit (no phone ) 10-27-2018 LYNNE K GWEN LYNNE K GWEN LYNNE K GWEN 10-27-2018 Emergency department no information LYNNE Jeri GWEN DO (no [facility] - patient visit phone) [facility] 10-27-2018 (no phone) 09-13-2018 Emergency department no information no name (no subhash ne) no organization name - patient visit (no phone) 09-13-2018 09-12-2018 Emergency department no information RAYMUNDO BARON MD (no [facility] - patient visit phone) [facility] 09-12-2018 (no phone) 03-09-2018 Emergency department no information AVERY Small APRN BA ARIE no organization name - patient visit Work Phone: (no phone) 03-09-2018 03-09-2018 Emergency department no information AVERY RENTERIAN (no [facility] - patient visit phone) [facility] 03-09-2018 (no phone) 12-05-2017 Emergency department no information AVERY Small APRN, BA ARIE no organization name - patient visit Work Phone: (no phone) 12-05-2017 12-05-2017 Emergency department no information AVERY RENTERIAN (no [facility] - patient visit phone) [facility] 12-05-2017 (no phone) 08-05-2017 Emergency department no information CRISELDA WESTON INS no organization name - patient visit Work Phone: (no phone) 08-05-2017 08-05-2017 Emergency department no information CRISELDA WESTON INS [facility] - patient visit (no phone) [facility] 08-05-2017 (no phone) 03-14-2017 Emergency department no information no name (no subhash ne) no organization name - patient visit (no phone) 03-14-2017 03-14-2017 Emergency department no information AVERY LLOYD (no [facility] - patient visit phone) [facility] 03-14-2017 (no phone) 11-14-2016 Emergency department no information no name (no subhash ne) no organization name - patient visit (no phone) 11-15-2016 11-14-2016 Emergency department no information FRANKY CANCINO [facility] - patient visit (no phone) [facility] 11-14-2016 (no phone) 04-04-2016 Emergency department no information JUVENCIO RODRIGUEZ [facility] - patient visit (no phone) [facility] 04-04-2016 (no phone) 02-11-2016 Emergency department no information FRANKY CANCINO [facility] - patient visit (no phone) [facility] 02-11-2016 (no phone) 07-07-2014 Emergency department no information no name (no subhash ne) no organization name - patient visit (no phone) 07-07-2014 12-05-2017 Patient encounter no information no name (no phone) no organization name (no phone) 08-09-2017 Patient encounter no information no name (no phone) no organization name (no phone) 08-05-2017 Patient encounter no information no name (no phone) no organization name (no phone) 03-14-2017 Patient encounter no information no name (no phone) no organization name (no phone) 02-16-2019 Patient encounter no information no name (no phone) no organization name procedure (no phone) 12-05-2018 Patient encounter no information no name (no phone) no organization name procedure (no phone) 11-13-2018 Patient encounter no information no name (no phone) no organization name procedure (no phone) 10-27-2018 Patient encounter no information no name (no phone) no organization name procedure (no phone) 09-12-2018 Patient encounter no information no name (no phone) no organization name procedure (no phone) 08-09-2017 Patient encounter no information CHAY A GELLENDE R DO [facility] procedure (no phone) [facility] (no phone) 01-02-2014 Patient encounter no information CHAY A GELLENDE R DO [facility] procedure (no phone) [facility] (no phone) Patient encounter no information no name (no phone) no organ ization name procedure (no phone) Medical Equipment The data below is from unstructured sourcesNo Medical Equipment Information availableNo Medical Equipment Information availableNo Medical Equipment Information available Payers Normalized Payer Value Unknown no information ([id number]) Evaluation note Note Type Note Facility Evaluation No Assessments Information Available A [facility] note [facility] ([id number]) Advance Directives Directive Response Recor ded Date/Time Advance Directives No 12:21am Resuscitation Status Full Code 02/12/16 12:21am Directive Response Recor ded Date/Time Advance Directives No 9:21pm Resuscitation Status Full Code 04/04/16 9:21pm Directive Response Recor ded Date/Time Advance Directives No 8:16pm Resuscitation Status Full Code 07/07/14 8:16pm Directive Response Recor ded Date/Time Advance Directives No 12:45pm Directive Response Recor ded Date/Time Advance Directives No 6:42pm Resuscitation Status Full Code 03/09/18 6:42pm Directive Response Recor ded Date/Time Advance Directives No 9:55am Resuscitation Status Full Code 10/27/18 9:55am Directive Response Recor ded Date/Time Advance Directives No 12:50am Resuscitation Status Full Code 10/28/18 12:50am Directive Response Recor ded Date/Time Advance Directives No 8:45pm Resuscitation Status Full Code 11/01/18 8:45pm Directive Response Recor ded Date/Time Advance Directives No 12:12pm Resuscitation Status Full Code 11/13/18 12:12pm Advance Directive Response Recorded Date/Time Advance Directives No Se pt2018 12:12pm Resuscitation Status Full Code November 13, 2018 12:12pm Advance Directive Response Recorded Date/Time Advance Directives No Se pt2018 12:12pm Discharge Instructions No hospital discharge instructions.No hospital discharge instructions.No hospital discharge instructions.No hospital discharge instruction information available.No hospital discharge instruction information available.No hospital discharge instruction information available.No hospital discharge instruction information available.No hospital discharge instruction information available.No hospital discharge instruction information available.No hospital discharge instruction information available. Chief Complaint and Reason for Visit Chief Complaint Nasal Problems Reason for Visit Epistaxis Chief Complaint Lower Extremity Reason for Visit Right foot pain Chief Complaint Oral/Throat Problems Reason for Visit Upper respiratory i nfection Bilateral otitis media Pharyngitis Chief Complaint Lower Extremity Reason for Visit [id number] Chief Complaint General Problems/Min n Reason for Visit Otitis media Sinusitis Chief Complaint Bite-Animal/Human/In sect Reason for Visit Human bite Cellulitis of left breast Chief Complaint Bite-Animal/Human/In sect Reason for Visit [id number] Chief Complaint General Problems/Min n Reason for Visit [id number] Assessments No Assessments Information Available Additional Source Comments This clinical document has been generated using [employer] software that has been certified by the Office of the National Coordinator for Health Information Technology (ONC 15.99.04.3023.Diam.[id number]) and the National Committee for [employer] (NCQA, as an eMeasure certified technology). FOR RECORDS PERTAINING TO PATIENTS WHO ARE OR HAVE BEEN ENROLLED IN A CHEMICAL D EPENDENCY/SUBSTANCE ABUSE PROGRAM, SOME INFORMATION MAY BE OMITTED. This clinica l summary was aggregated from multiple sources. Caution should be exercised in using it in the provision of clinical care. This summary normalizes information from multiple sources, and as a consequence, information in this document may ma terially change the coding, format and clinical context of patient data. In concepción tion, data may be omitted in some cases. CLINICAL DECISIONS SHOULD BE BASED ON T HE PRIMARY CLINICAL RECORDS. [employer], [facility]. provides no warranty or guara ntee of the accuracy or completeness of information in this document.The followi ng information is based on time limited clinical information
--- OUTSIDE RECORDS SUMMARY | 2019-05-01 02:10 | XMS REPORT | Continuity of Care Document ---
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 semi-quantitative TRACE NEGATIVE Urine glucose detection by automated test strip NE GATIVE NEGATIVE Erythrocytes detection in urine sediment by light micr oscopy TRACE-I NEGATIVE Urine ketones detection by automated test strip NE GATIVE NEGATIVE Urine nitrite detection by test strip NEGATIVE NEGATIVE Urine total bilirubin detection by test strip NEGA TIVE NEGATIVE Urine urobilinogen measurement by automated test strip (mass/volume) 0.2 mg/dL < = 1.0 Urine leukocyte esterase detection by dipstick NEG ATIVE NEGATIVE Automated urine sediment erythrocyte cou nt by microscopy (number/high power field) NONE NRG Automated urine sediment leukocyte count by microscopy (number/high power field) NONE NRG Bacteria detection in urine sediment by light microsco py NEGATIVE NRG Crystals detection in urine sediment by light microsco py NONE NRG Casts detection in urine sediment by light microscopy NONE NRG Mucus detection in urine sediment by light microscopy NEGATIVE NRG Complete urinalysis with reflex to culture NO NRG Urine drug screening test - 02/17/19 00: 07 Urine phencyclidine detection by screening method NEGATIVE NEGATIVE Urine benzodiazepines detection by screening method NEGATIVE NEGATIVE Urine cocaine detection NEGATIVE NEGATI VE Urine amphetamines detection by screening method N EGATIVE NEGATIVE Urine methamphetamine detection by screening method NEGATIVE NEGATIVE Urine cannabinoids detection by screening method N EGATIVE NEGATIVE Urine opiates detection by screening method NEGATI VE NEGATIVE Urine barbiturates detection NEGATIVE N EGATIVE Screening urine tricyclic antidepressants detection NEGATIVE NEGATIVE Urine methadone detection by screening method NEGA TIVE NEGATIVE Urine oxycodone detection NEGATIVE NEGA TIVE Urine propoxyphene detection NEGATIVE N EGATIVE Complete blood count (CBC) with automate d white blood cell (WBC) differential - 02/17/19 00:10 Blood leukocytes automated count (number/volume) 15.5 10*3/uL 4.3-11.0 Blood erythrocytes automated count (number/volume) 4.60 10*6/uL 4.35-5.85 Venous blood hemoglobin measurement (mass/volume) 13.3 g/dL 11.5-16.0 Blood hematocrit (volume fraction) 41 % 35-52 Automated erythrocyte mean corpuscular volume 89 [ foz_us] 80-99 Automated erythrocyte mean corpuscular h emoglobin (mass per erythrocyte) 29 pg 25-34 Automated erythrocyte mean corpuscular h emoglobin concentration measurement (mass/volume) 33 g/dL 32-36 Automated erythrocyte distribution width ratio 13. 9 % 10.0- 14.5 Automated blood platelet count (count/volume) 261 10*3/uL 130-400 Automated blood platelet mean volume measurement 10.9 [foz_us] 7.4-10.4 Automated blood neutrophils/100 leukocytes 55 % 42-75 Automated blood lymphocytes/100 leukocytes 31 % 12-44 Blood monocytes/100 leukocytes 12 % 0-12 Automated blood eosinophils/100 leukocytes 1 % 0-10 Automated blood basophils/100 leukocytes 0 % 0-10 Blood neutrophils automated count (number/volume) 8.5 10*3 1.8-7.8 Blood lymphocytes automated count (number/volume) 4.8 10*3 1.0-4.0 Blood monocytes automated count (number/volume) 1. 9 10*3 0.0-1.0 Automated eosinophil count 0.2 10*3/uL 0 .0-0.3 Automated blood basophil count (count/volume) 0.0 10*3/uL 0.0-0.1 Comprehensive metabolic panel - 02/17/19 00:10 Serum or plasma sodium measurement (moles/volume) 143 mmol/L 135-145 Serum or plasma potassium measurement (moles/volume) 3.8 mmol/L 3.6-5.0 Serum or plasma chloride measurement (moles/volume) 110 mmol/L 98-107 Carbon dioxide 20 mmol/L 21-32 Serum or plasma anion gap determination (moles/volume) 13 mmol/L 5-14 Serum or plasma urea nitrogen measurement (mass/volume ) 10 mg/dL 7-18 Serum or plasma creatinine measurement (mass/volume) 0.82 mg/dL 0.60-1.30 Serum or plasma urea nitrogen/creatinine mass ratio 12 NRG Serum or plasma creatinine measurement w ith calculation of estimated glomerular filtration rate > NRG Serum or plasma glucose measurement (mass/volume) 114 mg/dL 70-105 Serum or plasma calcium measurement (mass/volume) 9.4 mg/dL 8.5-10.1 Serum or plasma total bilirubin measurement (mass/volu me) 0.2 mg/dL 0.1-1.0 Serum or plasma alkaline phosphatase ritchie surement (enzymatic activity/volume) 67 U/L 40-136 Serum or plasma aspartate aminotransfera se measurement (enzymatic activity/volume) 11 U/L 5-34 Serum or plasma alanine aminotransferase measurement (enzymatic activity/volume) 13 U/L 0-55 Serum or plasma protein measurement (mass/volume) 7.5 g/dL 6.4-8.2 Serum or plasma albumin measurement (mass/volume) 4.1 g/dL 3.2-4.5 CALCIUM CORRECTED 9.3 mg/dL 8.5-10.1 Manual absolute plasma cell count - 0106/03 00:10 Blood monocytes/100 leukocytes 10 % NRG Manual blood segmented neutrophils/100 leukocytes 53 % NRG Manual blood lymphocytes/100 leukocytes 36 % NRG Manual eosinophils/100 leukocytes in nose 1 % NRG Blood erythrocyte morphology finding identification NORMAL NRG Serum or plasma thyrotropin measurement by detection limit <=0.05 miu/l (units/volume) - 02/17/19 00:10 Serum or plasma thyrotropin measurement by detection limit <=0.05 miu/l (units/volume) 2.07 u[iU]/mL 0.35-4.94 Serum or plasma salicylates measurement (mass/volume) - 02/17/19 00:10 Serum or plasma salicylates measurement (mass/volume) < mg/dL 5.0-20.0 Serum or plasma acetaminophen measuremen t (mass/volume) - 02/17/19 00:10 Serum or plasma acetaminophen measurement (mass/volume ) < ug/mL 10-30 Serum or plasma ethanol measurement (mas s/volume) - 02/17/19 00:10 Serum or plasma ethanol measurement (mass/volume) < mg/dL <10 Influenza virus A and B antigen detectio n - 04/18/19 20:27 CALL POSITIVES (F1 HELP) CALLED TO KIRSTEN AT 2051 NR FLU RESULT POSITIVE FOR INFLUENZA A ANT IGEN, NEG FOR B ANTIGEN, BY IA NR Capillary blood glucose measurement by g lucometer (mass/volume) - 04/30/19 18:49 Capillary blood glucose measurement by glucometer (mas s/volume) 98 mg/dL 70-110 Complete blood count (CBC) with automate d white blood cell (WBC) differential - 04/30/19 19:00 Blood leukocytes automated count (number/volume) 16.3 10*3/uL 4.3-11.0 Blood erythrocytes automated count (number/volume) 5.01 10*6/uL 4.35-5.85 Venous blood hemoglobin measurement (mass/volume) 14.4 g/dL 11.5-16.0 Blood hematocrit (volume fraction) 44 % 35-52 Automated erythrocyte mean corpuscular volume 87 [ foz_us] 80-99 Automated erythrocyte mean corpuscular h emoglobin (mass per erythrocyte) 29 pg 25-34 Automated erythrocyte mean corpuscular h emoglobin concentration measurement (mass/volume) 33 g/dL 32-36 Automated erythrocyte distribution width ratio 14. 4 % 10.0- 14.5 Automated blood platelet count (count/volume) 309 10*3/uL 130-400 Automated blood platelet mean volume measurement 10.4 [foz_us] 7.4-10.4 Automated blood neutrophils/100 leukocytes 64 % 42-75 Automated blood lymphocytes/100 leukocytes 26 % 12-44 Blood monocytes/100 leukocytes 9 % 0-12 Automated blood eosinophils/100 leukocytes 1 % 0-10 Automated blood basophils/100 leukocytes 0 % 0-10 Blood neutrophils automated count (number/volume) 10.5 10*3 1.8-7.8 Blood lymphocytes automated count (number/volume) 4.2 10*3 1.0-4.0 Blood monocytes automated count (number/volume) 1. 5 10*3 0.0-1.0 Automated eosinophil count 0.1 10*3/uL 0 .0-0.3 Automated blood basophil count (count/volume) 0.0 10*3/uL 0.0-0.1 PT panel in platelet poor plasma by coag ulation assay - 04/30/19 19:00 Prothrombin time (PT) in platelet poor plasma by coagu lation assay 14.1 s 12.2-14.7 INR in platelet poor plasma or blood by coagulation as say 1.1 0.8-1.4 Activated partial thromboplastin time (a PTT) in platelet poor plasma bycoagulation assay - 04/30/19 19:00 Activated partial thromboplastin time (a PTT) in platelet poor plasma bycoagulation assay 33 s 24-35 Fibrin D-dimer FEU measurement in platel et poor plasma (mass/volume) - 04/30/19 19:00 Fibrin D-dimer FEU measurement in platelet poor plasma (mass/volume) 0.32 ug/mL 0.00-0.49 Comprehensive metabolic panel - 04/30/19 19:00 Serum or plasma sodium measurement (moles/volume) 141 mmol/L 135-145 Serum or plasma potassium measurement (moles/volume) 3.5 mmol/L 3.6-5.0 Serum or plasma chloride measurement (moles/volume) 106 mmol/L 98-107 Carbon dioxide 20 mmol/L 21-32 Serum or plasma anion gap determination (moles/volume) 15 mmol/L 5-14 Serum or plasma urea nitrogen measurement (mass/volume ) 10 mg/dL 7-18 Serum or plasma creatinine measurement (mass/volume) 0.87 mg/dL 0.60-1.30 Serum or plasma urea nitrogen/creatinine mass ratio 11 NRG Serum or plasma creatinine measurement w ith calculation of estimated glomerular filtration rate > NRG Serum or plasma glucose measurement (mass/volume) 98 mg/dL 70-105 Serum or plasma calcium measurement (mass/volume) 10.1 mg/dL 8.5-10.1 Serum or plasma total bilirubin measurement (mass/volu me) 0.4 mg/dL 0.1-1.0 Serum or plasma alkaline phosphatase ritchie surement (enzymatic activity/volume) 78 U/L 40-136 Serum or plasma aspartate aminotransfera se measurement (enzymatic activity/volume) 11 U/L 5-34 Serum or plasma alanine aminotransferase measurement (enzymatic activity/volume) 10 U/L 0-55 Serum or plasma protein measurement (mass/volume) 8.5 g/dL 6.4-8.2 Serum or plasma albumin measurement (mass/volume) 4.6 g/dL 3.2-4.5 Manual absolute plasma cell count - 04/14 08/03 19:00 Blood monocytes/100 leukocytes 8 % NRG Manual blood segmented neutrophils/100 leukocytes 67 % NRG Blood band neutrophils/100 leukocytes 0 % NRG Manual blood lymphocytes/100 leukocytes 24 % NRG Manual eosinophils/100 leukocytes in nose 0 % NRG Manual blood basophils/100 leukocytes 0 % NRG Blood lymphocytes variant/100 leukocytes 1 % NRG Blood erythrocyte morphology finding identification NORMAL NRG Serum or plasma troponin i.cardiac measu rement (mass/volume) - 04/30/19 19:00 Serum or plasma troponin i.cardiac measurement (mass/v olume) < ng/mL <0.028 Serum or plasma choriogonadotropin measu rement (units/volume) - 04/30/19 19:00 Serum or plasma choriogonadotropin measurement (units/ volume) < m[iU]/mL <5 Encounters ACCT No. Visit Date/Time Discharge Status Pt. Type Provider Facility Loc./Unit Complaint [id number] 04/30/2019 18:39:00 20:31:00 DIS Emergency AVERY TORRES APRN [facility] ER DIZZY, [id number] 04/18/2019 20:20:00 21:06:00 DIS Outpatient JULIO CÉSAR SCHMITT [facility] ER DIZZY,CONGESTED [id number] 03/26/2019 19:52:00 21:20:00 DIS Emergency AVERY TORRES APRN [facility] ER EAR PAIN [id number] 02/16/2019 23:56:00 01:49:00 DIS Emergency GWENYOON Kennedy DO [facility] ER ANXIETY [id number] 12/05/2018 16:03:00 019 19:41:00 DIS Emergency YOON HIDALGO DO [facility] ER HEADACHE, WEAKNESS [id number] 11/13/2018 12:06:00 019 13:19:00 DIS Emergency JULIO CÉSAR SCHMITT [facility] ER HUMAN BITE [id number] 11/01/2018 20:20:00 21:50:00 DIS Emergency AVERY TORRES APRN [facility] ER HEADACHE [id number] 10/28/2018 00:52:00 01:43:00 DIS Emergency RAYMUNDO BARON MD [facility] ER TRIPPED OVER ROCK [id number] 10/27/2018 09:51:00 11:58:00 DIS Emergency GWENYOON Kennedy DO a [facility] ER N/V/THROAT PAIN [id number] 09/13/2018 01:29:00 02:18:00 DIS Emergency RAYMUNDO BARON MD [facility] ER SOB [id number] 03/09/2018 18:25:00 19:16:00 DIS Emergency AVERY TORRES APRN [facility] ER R FOOT PAIN [id number] 12/05/2017 12:54:00 14:49:00 DIS Emergency AVERY TORRES APRN [facility] ER NOSE BLEED [id number] 08/09/2017 16:29:00 23:59:59 [facility] Outpatient GELFERMIN LUTHER CHAY A [facility] RAD NECK PAIN GOES TO RIGHT SHOULDER [id number] 08/05/2017 15:04:00 018 16:17:00 DIS Emergency CRISELDA ARAUJO MD [facility] ER R SHOULDER/NECK PAIN [id number] 03/14/2017 12:28:00 15:53:00 DIS Emergency AVERY TORRES APRN [facility] ER FEVER HEADACHE [id number] 11/14/2016 22:51:00 00:07:00 DIS Emergency FRANKY RANDALL MD [facility] ER MID BACK PAIN [id number] 04/04/2016 20:34:00 017 21:45:00 DIS Emergency ASIM RODRIGUEZ, JUVENCIO Sánchez [facility] ER CONGESTION [id number] 02/12/2016 00:06:00 016 02:30:00 DIS Emergency TONIA ARMENTA, FRANKY Vaz [facility] ER SHARP PAIN IN M IDDLE OF BACK [id number] 07/07/2014 19:50:00 015 21:14:00 DIS Emergency VAN ARMENTA, CRISELDA Aguilar [facility] ER DENTAL PAIN [id number] 01/02/2014 09:02:00 014 23:59:59 [facility] Outpatient CHAY ORDONEZ DO [facility] LAB BIPOLAR [id number] 01/02/2014 09:02:00 Document Registration [id number] 01/27/2011 14:44:00 Document Registration [id number] 03/05/2010 12:39:00 Document Registration
== END 2019-04-30 20:31 | disposition left against medical advice (07) ==
LOC: EDUNIT# 18:37 → ER 18:39
DX: R47.1 Dysarthria and anarthria (principal); I10 Essential (primary) hypertension; E78.00 Pure hypercholesterolemia, unspecified; E66.9 Obesity, unspecified; F17.210 Nicotine dependence, cigarettes, uncomplicated; Z32.02 Encounter for pregnancy test, result negative; Z79.51 Long term (current) use of inhaled steroids; Z79.52 Long term (current) use of systemic steroids; Z68.39 Body mass index [BMI] 39.0-39.9, adult
CPT/HCPCS: 36415; 70450; 71045; 80053; 82962; 84484; 84702; 85007; 85027; 85379; 85610; 85730; 93005; 93041

== ENCOUNTER 2019-06-01 00:12 | Emergency (ER) | payer MEDICAID ==
[~2019-06-01] VITALS: Ht 68 cm; Wt 144.0 kg
[2019-06-01 00:20] VITALS: BP 162/93
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
[2019-06-01] MEDS ORDERED: CYCL10TA9 PO (00:34)
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
[2019-06-01] MEDS ORDERED: RX-CYCLOBENZAPRINE 10 MG (FLEXERIL) TAB PPK#3 PO STA (00:35)
== END 2019-06-01 00:40 | disposition home or self-care (01) ==
LOC: EDUNIT# 00:12 → ER 00:15
DX: M54.5 Low back pain (principal); J45.909 Unspecified asthma, uncomplicated; I10 Essential (primary) hypertension; E66.9 Obesity, unspecified; Z77.22 Contact with and (suspected) exposure to environmental tobacco smoke (acute) (chronic); Z79.51 Long term (current) use of inhaled steroids; Z79.52 Long term (current) use of systemic steroids; Z87.891 Personal history of nicotine dependence; Y04.8XXA Assault by other bodily force, initial encounter
CPT/HCPCS: 99283

== ENCOUNTER 2019-09-09 23:38 | Emergency (ER) | payer MEDICAID ==
[~2019-09-09] VITALS: Ht 172 cm; Wt 145.0 kg
--- NOTE | 2019-09-10 00:12 | ED Chest Pain ---
General Chief Complaint: Chest Wall Stated Complaint: CHEST AND BACK PAIN Nursing Triage Note: c/o right sided chest wall pain radiating to left flank x1hr. denies injury. Nursing Sepsis Screen: No Definite Risk Source: patient Exam Limitations: no limitations History of Present Illness Date Seen by Provider: Sep 10, 2019 Time Seen by Provider: 00:03 Initial Comments This 34-year-old woman presents to the emergency room with rather abrupt onset of right sided lateral chest pain and mid back pain starting about one hour prior to arrival. She denies any exacerbating or alleviating factors. She denies injury, cough, fever, COVID exposure, or travel. She denies any health problems including cardiopulmonary problems. These areas are tender to palpation. She is a smoker but denies any drug or alcohol use. Allergies and Home Medications Allergies Coded Allergies: No Known Drug Allergies (Unverified , 11/12/08) Home Medications No Active Prescriptions or Reported Meds Patient Home Medication List Home Medication List Reviewed: Yes Review of Systems Review of Systems Constitutional: no symptoms reported EENTM: No Symptoms Reported Respiratory: See HPI Cardiovascular: See HPI Gastrointestinal: No Symptoms Reported Musculoskeletal: see HPI Skin: no symptoms reported Psychiatric/Neurological: No Symptoms Reported Endocrine: No Symptoms Reported Hematologic/Lymphatic: No Symptoms Reported Past Psgspez-Urlich-Vdqkbu Hx Past Med/Social Hx: Reviewed Nursing Past Med/Soc Hx Patient Social History Alcohol Use: Denies Use Recreational Drug Use: No Smoking Status: Current Everyday Smoker Type Used: Cigarettes Former Smoker, Quit: Nov 02, 2018 2nd Hand Smoke Exposure: Yes Recent Foreign Travel: No Contact w/Someone Who Travel: No Recent Infectious Disease Expo: No Recent Hopitalizations: No Physical Abuse: No Sexual Abuse: No Mistreated: No Fear: No Immunizations Up To Date Tetanus Booster (TDap): Unknown Seasonal Allergies Seasonal Allergies: No Past Medical History Surgeries: No Respiratory: Yes COPD Currently Using CPAP: No Currently Using BIPAP: No Cardiac: No Hypertension Neurological: Yes Developmental Disorder : No Reproductive Disorders: Yes Female Reproductive Disorders: Polycystic Ovarian Dis Genitourinary: No Gastrointestinal: No Musculoskeletal: No Endocrine: No HEENT: No Cancer: No Psychosocial: Yes Anxiety Integumentary: No Blood Disorders: No Adverse Reaction/Blood Tranf: No Family Medical History Patient reports no known family medical history. Physical Exam Vital Signs Vital Signs - First Documented 09/09/19 23:48 Temp 36.8 Pulse 93 Resp 18 B/P (MAP) 142/92 (109) Pulse Ox 96 O2 Delivery Room Air Capillary Refill : Less Than 3 Seconds Height, Weight, BMI Height: 6'0" Weight: 230lbs. 0oz. 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 Progress/Results/Core Measures Results/Orders Lab Results Laboratory Tests Test 09/10/19 00:20 Range/Units White Blood Count 13.3 H 4.3-11.0 10^3/uL Red Blood Count 4.84 4.35-5.85 10^6/uL Hemoglobin 14.1 11.5-16.0 G/DL Hematocrit 42 35-52 % Mean Corpuscular Volume 87 80-99 FL Mean Corpuscular Hemoglobin 29 25-34 PG Mean Corpuscular Hemoglobin Concent 34 32-36 G/DL Red Cell Distribution Width 14.3 10.0-14.5 % Platelet Count 261 130-400 10^3/uL Mean Platelet Volume 11.8 H 7.4-10.4 FL Neutrophils (%) (Auto) 57 42-75 % Lymphocytes (%) (Auto) 30 12-44 % Monocytes (%) (Auto) 11 0-12 % Eosinophils (%) (Auto) 2 0-10 % Basophils (%) (Auto) 0 0-10 % Neutrophils # (Auto) 7.6 1.8-7.8 X 10^3 Lymphocytes # (Auto) 4.0 1.0-4.0 X 10^3 Monocytes # (Auto) 1.4 H 0.0-1.0 X 10^3 Eosinophils # (Auto) 0.3 0.0-0.3 10^3/uL Basophils # (Auto) 0.0 0.0-0.1 10^3/uL Sodium Level 143 135-145 MMOL/L Potassium Level 4.5 3.6-5.0 MMOL/L Chloride Level 108 H 98-107 MMOL/L Carbon Dioxide Level 20 L 21-32 MMOL/L Anion Gap 15 H 5-14 MMOL/L Blood Urea Nitrogen 9 7-18 MG/DL Creatinine 0.95 0.60-1.30 MG/DL Estimat Glomerular Filtration Rate > 60 BUN/Creatinine Ratio 9 Glucose Level 106 H 70-105 MG/DL Calcium Level 9.5 8.5-10.1 MG/DL Corrected Calcium 9.4 8.5-10.1 MG/DL Magnesium Level 2.0 1.6-2.4 MG/DL Total Bilirubin 0.3 0.1-1.0 MG/DL Aspartate Amino Transf (AST/SGOT) 21 5-34 U/L Alanine Aminotransferase (ALT/SGPT) 13 0-55 U/L Alkaline Phosphatase 67 40-136 U/L Myoglobin 21.2 10.0-92.0 NG/ML Troponin I < 0.028 <0.028 NG/ML Total Protein 8.2 6.4-8.2 GM/DL Albumin 4.1 3.2-4.5 GM/DL My Orders Orders - FRANKY RANDALL MD Cbc With Automated Diff (09/10/19 00:03) Magnesium (09/10/19 00:03) Chest 1 View, Ap/Pa Only (09/10/19 00:03) Ekg Tracing (09/10/19 00:03) Comprehensive Metabolic Panel (09/10/19 00:03) Myoglobin Serum (09/10/19 00:03) O2 (09/10/19 00:03) Monitor-Rhythm Ecg Trace Only (09/10/19 00:03) Ed Iv/Invasive Line Start (09/10/19 00:03) Troponin I (09/10/19 00:03) Aspirin Chewable Tablet (Baby Aspirin Ch (09/10/19 00:15) Ketorolac Injection (Toradol Injection) (09/10/19 00:15) Ketorolac Injection (Toradol Injection) (09/10/19 00:30) Medications Given in ED Current Medications Medications Dose Ordered Sig/Garth Route Start Time Stop Time Status Last Admin Dose Admin Aspirin 324 mg ONCE ONCE PO 09/10/19 00:15 09/10/19 00:16 DC 09/10/19 00:19 324 MG Ketorolac Tromethamine 30 mg ONCE ONCE IM 09/10/19 00:30 09/10/19 00:31 DC 09/10/19 00:24 30 MG Vital Signs/I&O 09/09/19 09/10/19 09/10/19 23:48 00:24 01:05 Temp 36.8 36.8 36.8 Pulse 93 80 Resp 18 16 B/P (MAP) 142/92 (109) 141/86 (109) Pulse Ox 96 96 O2 Delivery Room Air Room Air Blood Pressure Mean: 109 Progress Progress Note : Time: 01:00 Progress Note Workup was unremarkable except for mild leukocytosis with a lymphocytic predominance. This may be viral. Patient had no fever, cough, or shortness of breath. Pain completely resolved with Toradol. She is being dismissed home. Initial ECG Impression Date: Sep 10, 2019 Initial ECG Impression Time: 00:05 Initial ECG Rate: 87 Initial ECG Rhythm: Normal Sinus Initial ECG Intervals: Normal Initial ECG Impression: Normal Comment Normal sinus rhythm with no ST elevation or depression. No abnormal intervals or axis deviation. Diagnostic Imaging Diagonstic Imaging: Xray Plain Films/CT/US/NM/MRI: chest Comments Chest x-ray viewed by me. Report not yet available. No acute abnormalities appreciated. Departure Impression Primary Impression: Chest wall pain Additional Impression: Mid back pain Disposition: HOME, SELF-CARE Condition: Improved Departure-Patient Inst. Decision time for Depature: 01:02 Referrals: CHAY ORDONEZ DO (PCP/Family) Primary Care Physician Patient Instructions: Chest Pain That Is Not Caused by the Heart (DC), Upper Back Pain Add. Discharge Instructions: For pain you may take ibuprofen up to 600 mg every 6 hours as needed and Tylenol (acetaminophen) up to 1000 mg every 6 hours as needed. Avoid strenuous activity or heavy lifting until pain resolves. Follow-up with your primary care provider later this week if symptoms persist. If symptoms become severe, you may return to the emergency room. All discharge instructions reviewed with patient and/or family. Voiced understanding. Scripts No Active Prescriptions or Reported Meds FRANKY RANDALL MD Sep 10, 2019 00:12
[2019-09-10] MEDS ORDERED: ASPIRIN 81 MG CHEW (CHILDREN'S ASA) PO ONE (00:15)
[2019-09-10] MEDS ORDERED: KETOROLAC 30 MG/ML VIAL IVP ONE (00:15)
[2019-09-10] MEDS ORDERED: KETOROLAC 30 MG/ML VIAL IM ONE (00:30)
[2019-09-10 00:31] LABS: BASOPHILS % (AUTO) 0 % (0-10); EOSINOPHILS # (AUTO) 0.3 10^3/uL (0.0-0.3); EOSINOPHILS % (AUTO) 2 % (0-10); HEMATOCRIT 42 % (35-52); HEMOGLOBIN 14.1 G/DL (11.5-16.0); LYMPHOCYTES % (AUTO) 30 % (12-44); MEAN CORPUSCULAR HEMOGLOBIN 29 PG (25-34); MEAN CORPUSCULAR HGB CONC 34 G/DL (32-36); MEAN CORPUSCULAR VOLUME 87 FL (80-99); MEAN PLATELET VOLUME 11.8 FL (7.4-10.4); MONOCYTES # (AUTO) 1.4 X 10^3 (0.0-1.0); MONOCYTES % (AUTO) 11 % (0-12); NEUTROPHILS # (AUTO) 7.6 X 10^3 (1.8-7.8); NEUTROPHILS % (AUTO) 57 % (42-75); PLATELET COUNT 261 10^3/uL (130-400); RED CELL DISTRIBUTION WIDTH 14.3 % (10.0-14.5); WHITE BLOOD COUNT 13.3 10^3/uL (4.3-11.0)
[2019-09-10 00:40] LABS: ALBUMIN 4.1 GM/DL (3.2-4.5)
[2019-09-10 00:41] LABS: CHLORIDE 108 MMOL/L (98-107); POTASSIUM 4.5 MMOL/L (3.6-5.0); SODIUM 143 MMOL/L (135-145)
[2019-09-10 00:42] LABS: CALCIUM 9.5 MG/DL (8.5-10.1)
[2019-09-10 00:43] LABS: GLUCOSE 106 MG/DL (70-105); TOTAL PROTEIN 8.2 GM/DL (6.4-8.2)
[2019-09-10 00:44] LABS: CARBON DIOXIDE 20 MMOL/L (21-32)
[2019-09-10 00:45] LABS: BILIRUBIN,TOTAL 0.3 MG/DL (0.1-1.0)
[2019-09-10 00:46] LABS: ALKALINE PHOSPHATASE 67 U/L (40-136)
[2019-09-10 00:47] LABS: CREATININE SERUM 0.95 MG/DL (0.60-1.30); GFR ESTIMATED > 60
[2019-09-10 00:48] LABS: BUN/CREATININE RATIO 9
[2019-09-10 00:50] LABS: ALANINE AMINOTRANSFERASE 13 U/L (0-55)
[2019-09-10 01:05] VITALS: BP 141/86
--- NOTE | 2019-09-10 07:09 | Diagnostic Imaging Report ---
INDICATION: Chest wall pain FINDINGS: Frontal view of the chest demonstrates lungs to be clear. Heart, mediastinum and pulmonary vascularity and visualized bony thorax normal. IMPRESSION: Normal chest. Dictated by: Dictated on workstation # [id number]
== END 2019-09-10 01:05 | disposition home or self-care (01) ==
LOC: EDUNIT# 23:38 → ER 23:39
DX: R07.89 Other chest pain (principal); M54.89 Other dorsalgia; F17.210 Nicotine dependence, cigarettes, uncomplicated
CPT/HCPCS: 36415; 71045; 80053; 83735; 83874; 84484; 85025; 93005; 93041

== ENCOUNTER 2019-09-19 22:31 | Emergency (ER) | payer MEDICAID ==
[~2019-09-19] VITALS: Ht 188 cm; Wt 145.1 kg
[2019-09-19 22:39] VITALS: BP 182/105
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
--- NOTE | 2019-09-20 05:43 | Diagnostic Imaging Report ---
INDICATION: Wrist pain status post injury COMPARISON: None. FINDINGS: 4 views of the left wrist demonstrate no acute fracture or dislocation. There are no focal osseous lesions. No avascular necrosis is seen. The visualized soft tissue structures are unremarkable. The pronator fat pad is not displaced. There are no radio opaque foreign bodies. IMPRESSION: 1. No acute fracture or dislocation in the left wrist. Dictated by: Dictated on workstation # [id number]
== END 2019-09-19 23:00 | disposition home or self-care (01) ==
LOC: EDUNIT# 22:31 → ER FS 22:32
DX: S54.32XA Injury of cutaneous sensory nerve at forearm level, left arm, initial encounter (principal); S60.212A Contusion of left wrist, initial encounter; Z87.891 Personal history of nicotine dependence; X58.XXXA Exposure to other specified factors, initial encounter
CPT/HCPCS: 73110

== ENCOUNTER 2019-10-02 00:26 | Emergency (ER) | payer MEDICAID ==
--- NOTE | 2019-10-02 00:43 | ED General ---
General Stated Complaint: DELIVERY Source of Information: Patient History of Present Illness Date Seen by Provider: Oct 02, 2019 Time Seen by Provider: 12:30 Initial Comments 34-year-old female presents with right lower abdominal pain. Patient presents because she states she is "9 months " patient reports that she has not seen her OB in at least 2 months. Patient does not have a gravid appearance. Chart review shows a negative beta hCG on 04/30/19. Patient reports that she's had pain for 2 days in her right lower quadrant. That her doctor told her she was . Allergies and Home Medications Allergies Coded Allergies: No Known Drug Allergies (Unverified , 11/12/08) Home Medications No Active Prescriptions or Reported Meds Patient Home Medication List Home Medication List Reviewed: Yes Review of Systems Review of Systems Constitutional: No chills, No fever Respiratory: no symptoms reported Cardiovascular: no symptoms reported Gastrointestinal: see HPI Genitourinary: see HPI Musculoskeletal: no symptoms reported Skin: no symptoms reported Psychiatric/Neurological: No Symptoms Reported Past Esgtgrq-Tftvxu-Xoysrw Hx Past Med/Social Hx: Reviewed Nursing Past Med/Soc Hx Patient Social History Type Used: Cigarettes Former Smoker, Quit: Nov 02, 2018 2nd Hand Smoke Exposure: Yes Recent Foreign Travel: No Contact w/Someone Who Travel: No Recent Hopitalizations: No Immunizations Up To Date Tetanus Booster (TDap): Unknown Seasonal Allergies Seasonal Allergies: No Past Medical History Surgeries: Yes Tonsillectomy Respiratory: Yes COPD Currently Using CPAP: No Currently Using BIPAP: No Cardiac: No Hypertension Neurological: Yes Developmental Disorder Reproductive Disorders: Yes Female Reproductive Disorders: Polycystic Ovarian Dis Genitourinary: No Gastrointestinal: No Musculoskeletal: No Endocrine: No HEENT: No Cancer: No Psychosocial: Yes Anxiety Integumentary: No Blood Disorders: No Adverse Reaction/Blood Tranf: No Family Medical History Patient reports no known family medical history. Physical Exam Vital Signs Vital Signs - First Documented 10/02/19 00:26 Temp 36.7 Pulse 94 Resp 18 B/P (MAP) 198/117 (144) Pulse Ox 98 O2 Delivery Room Air Capillary Refill : Height, Weight, BMI Height: 6'0" Weight: 230lbs. 0oz. 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 Skin: Normal Color, Warm/Dry Progress/Results/Core Measures Suspected Sepsis SIRS Temperature: Pulse: Respiratory Rate: Blood Pressure / Mean: Results/Orders My Orders Orders - ISAMAR YU DO Cbc With Automated Diff (10/02/19 00:50) Comprehensive Metabolic Panel (10/02/19 00:50) Hcg,Qualitative Urine (10/02/19 00:50) Ua Culture If Indicated (10/02/19 00:50) Crp Fs (10/02/19 00:50) Vital Signs/I&O 10/02/19 00:26 Temp 36.7 Pulse 94 Resp 18 B/P (MAP) 198/117 (144) Pulse Ox 98 O2 Delivery Room Air Capillary Refill : Progress Note : Time: 01:02 Progress Note Bedside ultrasound shows no obvious and only no 9 month . This is consistent with her cervical exam and her abdominal exam. I was going evaluated patient's right lower quadrant pain for other etiologies. However patient is wanting to leave AMA. She is leaving prior to complete evaluation. Departure Impression Primary Impression: Right lower quadrant abdominal pain of unknown etiology Disposition: 01 HOME, SELF-CARE Condition: Stable Departure-Patient Inst. Referrals: CHAY ORDONEZ DO (PCP/Family) Primary Care Physician Scripts No Active Prescriptions or Reported Meds ISAMAR YU DO Oct 02, 2019 00:43
--- NOTE | 2019-10-02 01:05 | NUR ---
Pt decided that she wants to leave and that she is no longer having abd pain. Pt informed that she would be leaving against medical advice due to her workup not being completed at this time.
[2019-10-02 01:07] VITALS: BP 198/117
== END 2019-10-02 01:09 | disposition left against medical advice (07) ==
LOC: EDUNIT# 00:26 → ER FS 00:28
DX: R10.31 Right lower quadrant pain (principal); Z87.891 Personal history of nicotine dependence
CPT/HCPCS: 99283

== ENCOUNTER 2019-11-22 22:42 | Emergency (ER) | payer MEDICAID ==
[~2019-11-22] VITALS: Ht 188 cm; Wt 145.0 kg
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
[2019-11-23] MEDS ORDERED: RX-NAPROXEN (NAPROSYN) 250 MG TAB PPK#4 PO STA (00:23)
[2019-11-23] MEDS ORDERED: NAPR500T8 PO (00:26)
[2019-11-23 00:31] VITALS: BP 160/101
--- NOTE | 2019-11-23 07:11 | Diagnostic Imaging Report ---
ANKLE, RIGHT, 3 VIEWS COMPARISON: None available. INDICATION: Lateral ankle pain after injury TECHNIQUE: Non-weight bearing AP, oblique, and lateral views. FINDINGS: No fracture or traumatic malalignment. No osteochondral lesion of the talar dome. The Achilles shadow is normal in appearance. IMPRESSION: 1. No acute fracture or traumatic malalignment. Dictated by: Dictated on workstation # [id number]
== END 2019-11-23 00:32 | disposition home or self-care (01) ==
LOC: EDUNIT# 22:42 → ER 22:44
DX: S93.401A Sprain of unspecified ligament of right ankle, initial encounter (principal); I10 Essential (primary) hypertension; Z87.891 Personal history of nicotine dependence; Z77.22 Contact with and (suspected) exposure to environmental tobacco smoke (acute) (chronic); Z87.81 Personal history of (healed) traumatic fracture; X50.1XXA Overexertion from prolonged static or awkward postures, initial encounter; Y92.009 Unspecified place in unspecified non-institutional (private) residence as the place of occurrence of the external cause
CPT/HCPCS: 73610; 99283; L2114

== ENCOUNTER 2020-04-27 22:17 | Inpatient (IN) | payer MEDICAID ==
[~2020-04-27] VITALS: Ht 188 cm; Wt 157.7 kg
[~2020-04-27 22:17] MED LIST changes: +NAPR500T8 PO
[2020-04-27 22:33] VITALS: BP_SYST 182; BP_SYST 186; BP_SYST 192; BP_DIAS 107; BP_DIAS 123; BP_DIAS 134
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
[2020-04-27] MEDS ORDERED: LORazepam INJ 2 MG/ML (ATIVAN) VIAL IVP ONE (23:15)
[2020-04-27 23:23] LABS: BILIRUBIN,URINE NEGATIVE (NEGATIVE); CLARITY,URINE SL CLOUDY; COLOR,URINE YELLOW; GLUCOSE, URINE (UA) NEGATIVE (NEGATIVE); KETONES,URINE NEGATIVE (NEGATIVE); LEUKOCYTE ESTERASE ,URINE 1+ (NEGATIVE); NITRITE,URINE POSITIVE (NEGATIVE); PROTEIN,URINE 2+ (NEGATIVE)
[2020-04-27 23:31] LABS: WBC,URINE 25-50 /HPF
[2020-04-27 23:32] LABS: BASOPHILS # (AUTO) 0.1 10^3/uL (0.0-0.1); BASOPHILS % (AUTO) 0 % (0-10); EOSINOPHILS # (AUTO) 0.2 10^3/uL (0.0-0.3); EOSINOPHILS % (AUTO) 1 % (0-10); HEMATOCRIT 46 % (35-52); HEMOGLOBIN 14.6 g/dL (11.5-16.0); LYMPHOCYTES # (AUTO) 5.5 10^3/uL (1.0-4.0); LYMPHOCYTES % (AUTO) 35 % (12-44); MEAN CORPUSCULAR HEMOGLOBIN 28 pg (25-34); MEAN CORPUSCULAR HGB CONC 32 g/dL (32-36); MEAN CORPUSCULAR VOLUME 88 fL (80-99); MEAN PLATELET VOLUME 10.6 fL (9.0-12.2); MONOCYTES # (AUTO) 1.8 10^3/uL (0.0-1.0); MONOCYTES % (AUTO) 12 % (0-12); NEUTROPHILS % (AUTO) 51 % (42-75); PLATELET COUNT 327 10^3/uL (130-400); WHITE BLOOD COUNT 15.6 10^3/uL (4.3-11.0)
[2020-04-27 23:32] LABS: BACTERIA,URINE LARGE /HPF
[2020-04-27 23:35] LABS: AMPHETAMINE SCREEN, URINE NEGATIVE (NEGATIVE); BARBITURATE SCREEN URINE NEGATIVE (NEGATIVE); BENZODIAZEPINES SCREEN URINE NEGATIVE (NEGATIVE); CANNABINOID SCREEN, URINE NEGATIVE (NEGATIVE); COCAINE SCREEN URINE NEGATIVE (NEGATIVE); METHADONE STAT NEGATIVE (NEGATIVE); METHAMPHETAMINE SCREEN URINE S NEGATIVE (NEGATIVE); OPIATE SCREEN URINE NEGATIVE (NEGATIVE); OXYCODONE STAT NEGATIVE (NEGATIVE); PROPOXYPHENE STAT NEGATIVE (NEGATIVE); TRICYCLIC ANTIDEPRESSANTS SCRE NEGATIVE (NEGATIVE)
[2020-04-27 23:47] LABS: BAND NEUTROPHILS 0 %; BASOPHILS % (MANUAL) 0 %; EOSINOPHILS % (MANUAL) 1 %; LYMPHOCYTES % (MANUAL) 43 %; MONOCYTES % (MANUAL) 6 %; NEUTROPHILS % (MANUAL) 45 %; RBC MORPH NORMAL; REACTIVE LYMPHOCYTES 5 %
[2020-04-27 23:51] LABS: ALANINE AMINOTRANSFERASE 21 U/L (0-55); ALBUMIN 4.3 GM/DL (3.2-4.5); ALKALINE PHOSPHATASE 85 U/L (40-136); BILIRUBIN,TOTAL 0.3 MG/DL (0.1-1.0); BUN/CREATININE RATIO 13; CALCIUM 9.5 MG/DL (8.5-10.1); CARBON DIOXIDE 22 MMOL/L (21-32); CHLORIDE 106 MMOL/L (98-107); CREATININE SERUM 0.86 MG/DL (0.60-1.30); GFR ESTIMATED > 60; GLUCOSE 124 MG/DL (70-105); MAGNESIUM 2.1 MG/DL (1.6-2.4); SODIUM 142 MMOL/L (135-145); TOTAL PROTEIN 8.5 GM/DL (6.4-8.2)
[2020-04-28] MEDS ORDERED: LACTATED RINGERS 1,000 ML IV ONE (01:30)
[2020-04-28] MEDS ORDERED: NITROGLYCERIN 2% OINT 1 GM UNIT DOSE PACKET TOP ONE (01:30)
[2020-04-28] MEDS ORDERED: cefTRIAXone FOR IV USE 1,000 MG in WATER (STERILE) FOR INJECTION 10 ML IV ONE (01:30)
[2020-04-28] MEDS ORDERED: LORazepam 0.5 MG (ATIVAN) TABLET PO STA (01:57)
[2020-04-28 02:13] LABS: INR 0.9 (0.8-1.4); PROTHROMBIN TIME PATIENT 12.8 SEC (12.2-14.7)
[2020-04-28] MEDS ORDERED: NITROGLYCERIN 2% OINT 1 GM UNIT DOSE PACKET TOP PRN (03:30)
[2020-04-28] MEDS ORDERED: ONDANSETRON 4 MG/2 ML (SDV) Z0FRAN IVP PRN (03:30)
[2020-04-28] MEDS ORDERED: ACETAMINOPHEN 500 MG TAB (TYLENOL) PO PRN (03:30)
[2020-04-28] MEDS ORDERED: LACTATED RINGERS 1,000 ML IV SCH (03:30)
[2020-04-28] MEDS ORDERED: LORazepam 1 MG (ATIVAN) TAB PO PRN (03:30)
[2020-04-28] MEDS: POTASSIUM CL 10MEQ/50ML IVPB 50 ML IV SCH (04:06)
[2020-04-28] MEDS: KCL 20 MEQ TAB (K-DUR) PO SCH (04:06)
[2020-04-28] MEDS: MAGNESIUM 1 GM/100 ML IVPB 100 ML IV SCH (04:06)
--- NOTE | 2020-04-28 06:20 | Diagnostic Imaging Report ---
INDICATION: Sepsis COMPARISON: 09/10/2019 FINDINGS: Single view of the chest demonstrates clear lungs bilaterally. The heart is normal. There is no pneumothorax. The osseous structures are normal. IMPRESSION: Negative chest Dictated by: Dictated on workstation # [id number]
[2020-04-28] MEDS: LACTATED RINGERS 1,000 ML IV SCH ×3 (08:14→19:00)
[2020-04-28 12:00] VITALS: BP 140/89
[2020-04-28] MEDS ORDERED: CARVEDILOL 12.5 MG (COREG) TABLET PO NR (12:45)
[2020-04-28] MEDS ORDERED: lisINopril 40 MG (PRINIVIL) TABLET PO ONE (12:45)
[2020-04-28] MEDS ORDERED: lisINopril 20 MG (PRINIVIL) TABLET PO NR (12:45)
[2020-04-28] MEDS ORDERED: hydrALAZINE (APESOLINE) 20 MG/ML VIAL IV PRN (12:45)
--- NOTE | 2020-04-28 12:48 | History & Physical-Hospitalist ---
History of Present Illness HPI/Chief Complaint Kristie Jaime is a 35 year old female who presented with lightheadedness and dizziness. She reported worsening with positional changes. She is feeling better upon my exam. She denies fevers and chills. She denies chest pain and palpitations. She denies dyspnea and cough. She denies abdominal pain, nausea, vomiting, and diarrhea. She denies dysuria, urgency, and frequency. She does not take any medications. Source: patient Exam Limitations: no limitations Date Seen 04/28/20 Time Seen by a Provider: 09:20 Attending Physician Cici Granados MD PCP John Padilla DO Referring Physician Date of Admission Apr 28, 2020 at 02:32 Home Medications & Allergies Home Medications Reviewed patient Home Medication Reconciliation performed by pharmacy medication reconciliations advanced manufacturing technician and/or nursing. Patients Allergies have been reviewed. Allergies Allergies Coded Allergies No Known Drug Allergies (Unverified11/12/08) Past Yycjxfo-Gaxlgu-Zbxxla Hx Past Med/Social Hx: Reviewed Nursing Past Med/Soc Hx Patient Social History Alcohol Use: Denies Use Recreational Drug Use: No Smoking Status: Former Smoker Former Smoker, Quit: Nov 02, 2018 Type Used: Cigarettes 2nd Hand Smoke Exposure: Yes Recent Foreign Travel: No Contact w/other who traveled: No Recent Hopitalizations: No Recent Infectious Disease Expo: No Immunizations Up To Date Tetanus Booster (TDap): Unknown Seasonal Allergies Seasonal Allergies: No Past Medical History Surgeries: Tonsillectomy Currently Using CPAP: No Currently Using BIPAP: No Cardiac: Hypertension Neurological: Developmental Disorder : No Reproductive: Yes Female Reproductive Disorders: Polycystic Ovarian Dis Psychosocial: Anxiety History of Blood Disorders: No Adverse Reaction to Blood Harding: No Family History Patient reports no known family medical history. Review of Systems Constitutional: dizziness EENTM: no symptoms reported Respiratory: no symptoms reported Cardiovascular: no symptoms reported Gastrointestinal: no symptoms reported Genitourinary: no symptoms reported Musculoskeletal: no symptoms reported Skin: no symptoms reported Psychiatric/Neurological: No Symptoms Reported Physical Exam Physical Exam Vital Signs Vital Signs - First Documented 04/27/20 22:22 Temp 35.6 Pulse 125 Resp 18 B/P (MAP) 194/144 (161) Pulse Ox 94 O2 Delivery Room Air Capillary Refill : Less Than 3 Seconds Height, Weight, BMI Height: 6'0" Weight: 230lbs. 0oz. [id number]; 44.47 BMI Method:Stated General Appearance: No Apparent Distress, Obese Neck: Normal Inspection, Supple Respiratory: Lungs Clear, Normal Breath Sounds, No Respiratory Distress Cardiovascular: Regular Rate, Rhythm, No Edema, No Murmur Gastrointestinal: Normal Bowel Sounds, Non Tender, Soft Extremity: Normal Inspection, Non Tender, No Pedal Edema Neurologic/Psychiatric: Alert, Oriented x3, No Motor/Sensory Deficits, Normal Mood/Affect Skin: Normal Color, Warm/Dry Results Results/Procedures Labs Laboratory Tests 04/27/20 23:25 Patient resulted labs reviewed. Imaging: Reviewed Imaging Report Assessment/Plan Admission Diagnosis Sepsis due to pneumonia Admission Status: Inpatient Order (span 2 midnights) Reason for Inpatient Admission: UTI requiring IV antibiotics Assessment and Plan Sepsis due to UTI SIRS+ with tachycardia and leukocytosis UA consistent with UTI Urine culture with E coli, final ID and susceptibilities pending Started on Rocephin IV fluids HTN urgency BP elevated Begin Coreg and Lisinopril Hydralazine as needed Morbid obesity Clinically significant, no acute management needs DVT prophylaxis: Lovenox Diagnosis/Problems Diagnosis/Problems (1) Sepsis Status: Acute Qualifiers: Sepsis type: sepsis due to unspecified organism Sepsis acute organ dysfunction status: without acute organ dysfunction Qualified Codes: A41.9 - Sepsis, unspecified organism (2) Urinary tract infection Status: Acute Qualifiers: Urinary tract infection type: site unspecified Hematuria presence: without hematuria Qualified Codes: N39.0 - Urinary tract infection, site not specified (3) Hypertensive urgency Status: Acute (4) Morbid obesity Status: Chronic KALA LEWIS MD Apr 28, 2020 12:48
[2020-04-28] MEDS ORDERED: IBUP-2473 PO (13:40)
[2020-04-28] MEDS ORDERED: DIPH25CA79 PO (13:40)
[2020-04-28 15:52] VITALS: BP 111/61
[2020-04-28 19:34] VITALS: BP 116/56
[2020-04-28] MEDS ORDERED: WATER (STERILE) FOR INJECTION 10 ML ONE (20:14)
[2020-04-28] MEDS ORDERED: cefTRIAXone 1,000 MG IV (ROCEPHIN) VIAL ONE (20:14)
[2020-04-28] MEDS: CARVEDILOL 12.5 MG (COREG) TABLET PO SCH (20:24)
[2020-04-28] MEDS ORDERED: cefTRIAXone 1,000 MG/SWFI 10 ML IV PUSH IV SCH ×2 (21:00)
[2020-04-28 23:32] VITALS: BP 123/72
[2020-04-29] MEDS: LACTATED RINGERS 1,000 ML IV SCH ×2 (01:50→08:18)
[2020-04-29 04:03] VITALS: BP 128/59
[2020-04-29 05:42] LABS: BASOPHILS % (AUTO) 0 % (0-10); EOSINOPHILS # (AUTO) 0.2 10^3/uL (0.0-0.3); EOSINOPHILS % (AUTO) 2 % (0-10); HEMATOCRIT 38 % (35-52); HEMOGLOBIN 11.9 g/dL (11.5-16.0); LYMPHOCYTES # (AUTO) 4.4 10^3/uL (1.0-4.0); LYMPHOCYTES % (AUTO) 34 % (12-44); MEAN CORPUSCULAR HEMOGLOBIN 28 pg (25-34); MEAN CORPUSCULAR HGB CONC 31 g/dL (32-36); MEAN CORPUSCULAR VOLUME 90 fL (80-99); MEAN PLATELET VOLUME 10.8 fL (9.0-12.2); MONOCYTES # (AUTO) 1.2 10^3/uL (0.0-1.0); MONOCYTES % (AUTO) 9 % (0-12); NEUTROPHILS # (AUTO) 7.1 10^3/uL (1.8-7.8); NEUTROPHILS % (AUTO) 55 % (42-75); PLATELET COUNT 234 10^3/uL (130-400)
[2020-04-29 06:07] LABS: CHLORIDE 108 MMOL/L (98-107); POTASSIUM 3.7 MMOL/L (3.6-5.0); SODIUM 140 MMOL/L (135-145)
[2020-04-29 06:08] LABS: CALCIUM 8.8 MG/DL (8.5-10.1); GLUCOSE 108 MG/DL (70-105)
[2020-04-29 06:10] LABS: CARBON DIOXIDE 22 MMOL/L (21-32)
[2020-04-29 06:12] LABS: CREATININE SERUM 0.77 MG/DL (0.60-1.30); GFR ESTIMATED > 60
[2020-04-29 06:13] LABS: BUN/CREATININE RATIO 14
[2020-04-29] MEDS: KCL 20 MEQ TAB (K-DUR) PO SCH (06:15)
[2020-04-29] MEDS: POTASSIUM CL 10MEQ/50ML IVPB 50 ML IV SCH (06:15)
[2020-04-29] MEDS: MAGNESIUM 1 GM/100 ML IVPB 100 ML IV SCH (06:42)
[2020-04-29 08:00] VITALS: BP 129/64
[2020-04-29] MEDS: CARVEDILOL 12.5 MG (COREG) TABLET PO SCH (08:18)
[2020-04-29] MEDS ORDERED: lisINopril 20 MG (PRINIVIL) TABLET PO SCH (09:00)
[2020-04-29] MEDS ORDERED: lisINopril 40 MG (PRINIVIL) TABLET PO SCH (09:00)
[2020-04-29] MEDS ORDERED: LISI20TA26 PO (11:27)
[2020-04-29] MEDS ORDERED: CARV12.53 PO (11:27)
[2020-04-29] MEDS ORDERED: CEFD300C3 PO (11:27)
[2020-04-29 12:00] VITALS: BP 122/67
== END 2020-04-29 12:55 | disposition home or self-care (01) | DRG 872 ==
LOC: EDUNIT# 22:17 → ER 22:20 → ICU 04-28 02:32 → 4TH 04-28 11:42
PROVIDERS: ADMIT Family Medicine; ATTEND Family Medicine
DX: A41.51 Sepsis due to Escherichia coli [E. coli] (principal); N39.0 Urinary tract infection, site not specified; Z68.41 Body mass index [BMI] 40.0-44.9, adult; I16.0 Hypertensive urgency; I10 Essential (primary) hypertension; E66.01 Morbid (severe) obesity due to excess calories; J44.9 Chronic obstructive pulmonary disease, unspecified; F80.9 Developmental disorder of speech and language, unspecified; F41.9 Anxiety disorder, unspecified; Z87.891 Personal history of nicotine dependence; Z79.1 Long term (current) use of non-steroidal anti-inflammatories (NSAID)
CPT/HCPCS: 36415; 71045; 80048; 80053; 80306; 81000; 82962; 83605; 83735; 83880; 84443; 84703; 85007; 85025; 85027; 85610; 85730; 86141; 87040; 87077; 87081; 87088; 87186; 93005; 93041; 94760

== ENCOUNTER 2020-06-15 03:21 | Emergency (ER) | payer MEDICAID ==
[~2020-06-15] VITALS: Ht 182.9 cm; Wt 152.9 kg
[~2020-06-15 03:21] MED LIST changes: +CARV12.53 PO; +DIPH25CA79 PO; +IBUP-2473 PO; +LISI20TA26 PO
[2020-06-15] MEDS ORDERED: ORPHENADRINE 60 MG/2 ML (NORFLEX) AMP (ED ONLY) IM STA (03:39)
[2020-06-15] MEDS ORDERED: KETOROLAC 60 MG/2 ML VIAL IM STA (03:39)
[2020-06-15 03:45] LABS: BACTERIA,URINE LARGE /HPF; BILIRUBIN,URINE NEGATIVE (NEGATIVE); CLARITY,URINE CLOUDY; COLOR,URINE YELLOW; GLUCOSE, URINE (UA) NEGATIVE (NEGATIVE); KETONES,URINE NEGATIVE (NEGATIVE); LEUKOCYTE ESTERASE ,URINE 2+ (NEGATIVE); NITRITE,URINE POSITIVE (NEGATIVE); PROTEIN,URINE 1+ (NEGATIVE); WBC,URINE 25-50 /HPF
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
[2020-06-15 03:46] LABS: SQUAMOUS EPITHELIAL CELL,UR 0-2 /HPF
[2020-06-15] MEDS ORDERED: CIPROFLOXACIN 500 MG (CIPRO) TABLET PO STA (04:34)
[2020-06-15] MEDS ORDERED: TAMSULOSIN 0.4 MG (FLOMAX) CAP PO STA (04:45)
[2020-06-15] MEDS ORDERED: CIPR500T5 PO (04:51)
[2020-06-15] MEDS ORDERED: IBUP-1780 PO (04:51)
[2020-06-15] MEDS ORDERED: TMSL.4C PO (04:51)
[2020-06-15 05:05] VITALS: BP 154/94
--- NOTE | 2020-06-15 07:04 | Diagnostic Imaging Report ---
PROCEDURE: CT urinary tract, rule out kidney stone. TECHNIQUE: Multiple contiguous axial images were obtained through the abdomen and pelvis without the use of intravenous contrast. Auto Exposure Controls were utilized during the CT exam to meet ALARA standards for radiation dose reduction. INDICATION: Chronic back pain. Left flank pain. COMPARISON: None FINDINGS: Included portions of the lung bases are clear. CT ABDOMEN: Punctate 2 to 3 mm calculus is identified within the distal left ureter ((image 157, series 3). As a result, there is mild proximal hydroureteronephrosis. No other renal or ureteral calculi are seen on either side. No focal renal masses are identified on this noncontrast study. Liver is diffusely hypodense consistent with hepatic steatosis. The adrenal glands show 1.4 cm nodular lesion involving the lateral genu on the right. It is hyperdense on this exam, but is otherwise incompletely characterized. Left adrenal gland, spleen, and pancreas have an unremarkable noncontrast CT appearance. Small bowel loops are nondistended. Normal appendix is identified. There is no loculated fluid collection, free fluid or free air within the abdomen. No abnormal mesenteric or retroperitoneal adenopathy is seen. Osseous structures show no acute abnormalities CT PELVIS: Urinary bladder is unopacified. No calculi are seen within the urinary bladder. Again, there is 3 mm calculus within the distal left ureter. There is no loculated fluid collection, free fluid or free air. No abnormal lymph nodes are identified. Osseous structures show no acute abnormalities. IMPRESSION: 1. A 3 mm calculus in the distal left ureter resulting in mild proximal hydroureteronephrosis. 2. Hepatic steatosis. 3. Incompletely characterized right adrenal lesion. Follow-up with dedicated adrenal protocol CT of the abdomen is recommended and could be performed on nonemergent basis. Dictated by: Dictated on workstation # [id number]
== END 2020-06-15 05:05 | disposition home or self-care (01) ==
LOC: EDUNIT# 03:21 → ER FS 03:23
DX: N30.91 Cystitis, unspecified with hematuria (principal); N13.2 Hydronephrosis with renal and ureteral calculous obstruction; E66.9 Obesity, unspecified; J44.9 Chronic obstructive pulmonary disease, unspecified; I10 Essential (primary) hypertension; F17.210 Nicotine dependence, cigarettes, uncomplicated; Z68.41 Body mass index [BMI] 40.0-44.9, adult; Z79.899 Other long term (current) drug therapy
CPT/HCPCS: 74176; 81000; 84703; 87077; 87088

== ENCOUNTER 2020-08-16 23:50 | Emergency (ER) | payer MEDICAID ==
[~2020-08-16] VITALS: Ht 170 cm; Wt 150.2 kg
[~2020-08-16 23:50] MED LIST changes: +CIPR500T5 PO; +IBUP-1780 PO; +TMSL.4C PO
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
[2020-08-17 01:09] LABS: BASOPHILS # (AUTO) 0.1 10^3/uL (0.0-0.1); BASOPHILS % (AUTO) 0 % (0-10); EOSINOPHILS # (AUTO) 0.2 10^3/uL (0.0-0.3); EOSINOPHILS % (AUTO) 1 % (0-10); HEMATOCRIT 41 % (35-52); HEMOGLOBIN 13.2 g/dL (11.5-16.0); LYMPHOCYTES # (AUTO) 4.7 10^3/uL (1.0-4.0); LYMPHOCYTES % (AUTO) 25 % (12-44); MEAN CORPUSCULAR HEMOGLOBIN 29 pg (25-34); MEAN CORPUSCULAR HGB CONC 32 g/dL (32-36); MEAN CORPUSCULAR VOLUME 90 fL (80-99); MONOCYTES # (AUTO) 1.9 10^3/uL (0.0-1.0); MONOCYTES % (AUTO) 11 % (0-12); NEUTROPHILS # (AUTO) 11.5 10^3/uL (1.8-7.8); NEUTROPHILS % (AUTO) 62 % (42-75); PLATELET COUNT 251 10^3/uL (130-400); WHITE BLOOD COUNT 18.5 10^3/uL (4.3-11.0)
[2020-08-17 01:21] LABS: ALBUMIN 3.9 GM/DL (3.2-4.5); CHLORIDE 108 MMOL/L (98-107); POTASSIUM 4.1 MMOL/L (3.6-5.0); SODIUM 142 MMOL/L (135-145)
[2020-08-17 01:23] LABS: GLUCOSE 131 MG/DL (70-105)
[2020-08-17 01:25] LABS: BILIRUBIN,TOTAL 0.3 MG/DL (0.1-1.0); CARBON DIOXIDE 18 MMOL/L (21-32)
[2020-08-17 01:27] LABS: ALKALINE PHOSPHATASE 69 U/L (40-136); GFR ESTIMATED > 60
[2020-08-17 01:28] LABS: BUN/CREATININE RATIO 8
[2020-08-17 01:30] LABS: ALANINE AMINOTRANSFERASE 15 U/L (0-55)
[2020-08-17 01:39] LABS: ANISOCYTOSIS SLIGHT; BAND NEUTROPHILS 1 %; EOSINOPHILS % (MANUAL) 2 %; LYMPHOCYTES % (MANUAL) 30 %; MONOCYTES % (MANUAL) 9 %; NEUTROPHILS % (MANUAL) 58 %
[2020-08-17] MEDS ORDERED: CEFD300C3 PO (02:21)
[2020-08-17] MEDS ORDERED: AZIT250T12 PO (02:21)
[2020-08-17 02:25] VITALS: BP 132/99
[2020-08-17] MEDS ORDERED: AZITHROMYCIN 250 MG TAB (ZITHROMAX) PO ONE (02:30)
[2020-08-17] MEDS ORDERED: CEFDINIR 300 MG (OMNICEF) CAP PO ONE (02:30)
--- NOTE | 2020-08-17 07:17 | Diagnostic Imaging Report ---
Indication: Dyspnea with cough and congestion. Comparison: 04/28/2020. Discussion: Single portable upright view of the chest was obtained. Normal heart size. No consolidation, pleural fluid, or pneumothorax. No osseous abnormality. Impression: 1. Negative portable chest. Dictated by: Dictated on workstation # [id number]
== END 2020-08-17 02:29 | disposition home or self-care (01) ==
LOC: EDUNIT# 23:50 → ER 23:51
DX: J18.1 Lobar pneumonia, unspecified organism (principal); J44.9 Chronic obstructive pulmonary disease, unspecified; I10 Essential (primary) hypertension; Z20.822 Contact with and (suspected) exposure to COVID-19; Z79.899 Other long term (current) drug therapy
CPT/HCPCS: 36415; 71045; 80053; 85007; 85027; 86141; 87636

== ENCOUNTER 2020-09-25 09:49 | Emergency (ER) | payer MEDICAID ==
[~2020-09-25] VITALS: Ht 182 cm; Wt 158.0 kg
[~2020-09-25 09:49] MED LIST changes: +AZIT250T12 PO
[2020-09-25 09:59] VITALS: BP 160/105
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
[2020-09-25] MEDS ORDERED: CEFD300C3 PO (10:31)
[2020-09-25] MEDS ORDERED: SULF1TAB38 PO (10:31)
[2020-09-25] MEDS ORDERED: LORA10CA PO (10:31)
== END 2020-09-25 10:41 | disposition home or self-care (01) ==
LOC: EDUNIT# 09:49 → ER 09:51
DX: L03.213 Periorbital cellulitis (principal); J44.9 Chronic obstructive pulmonary disease, unspecified; I10 Essential (primary) hypertension
CPT/HCPCS: 99282

== ENCOUNTER 2020-11-12 19:56 | Emergency (ER) | payer MEDICAID ==
[~2020-11-12] VITALS: Ht 182.8 cm; Wt 161.7 kg
[~2020-11-12 19:56] MED LIST changes: +LORA10CA PO; +SULF1TAB38 PO
[2020-11-12 20:00] VITALS: BP 187/143
[2020-11-12] MEDS ORDERED: CYCL10TA9 PO (20:22)
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
[2020-11-12] MEDS ORDERED: ORPHENADRINE 60 MG/2 ML (NORFLEX) AMP (ED ONLY) IM ONE (20:30)
[2020-11-12] MEDS ORDERED: KETOROLAC 30 MG/ML VIAL IM ONE (20:30)
[2020-11-12] MEDS ORDERED: lisINopril 20 MG (PRINIVIL) TABLET PO ONE (21:00)
[2020-11-12] MEDS ORDERED: CARV12.53 PO (21:51)
[2020-11-12] MEDS ORDERED: LISI20TA26 PO (21:51)
== END 2020-11-12 22:00 | disposition home or self-care (01) ==
LOC: EDUNIT# 19:56 → ER 19:57
DX: M54.6 Pain in thoracic spine (principal); I10 Essential (primary) hypertension; J44.9 Chronic obstructive pulmonary disease, unspecified; Z79.899 Other long term (current) drug therapy
CPT/HCPCS: 99285

== ENCOUNTER 2021-01-30 22:37 | Emergency (ER) | payer MEDICAID ==
[~2021-01-30] VITALS: Ht 183 cm; Wt 169.0 kg
[~2021-01-30 22:37] MED LIST changes: +CYCL10TA25 PO; -CYCL10TA9 PO; +SCOP1PAT10 TD; -SCOP1PAT11 TD
[2021-01-30] MEDS ORDERED: RX-NAPROXEN (NAPROSYN) 250 MG TAB PPK#4 PO STA (23:29)
[2021-01-30] MEDS ORDERED: RX-AMOXICILLIN 500 MG CAP #3 PPK PO STA (23:29)
[2021-01-30] MEDS ORDERED: LIDOCAINE 2% VISCOUS 15 ML UDC MM ONE (23:30)
[2021-01-30] MEDS ORDERED: AMOX875T2 PO (23:32)
[2021-01-30] MEDS ORDERED: NAPR500T8 PO (23:32)
[2021-01-30] MEDS ORDERED: LIDO20SO23 MM (23:32)
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
[2021-01-30 23:45] VITALS: BP 235/134
== END 2021-01-30 23:47 | disposition home or self-care (01) ==
LOC: EDUNIT# 22:37 → ER 22:39
DX: K02.9 Dental caries, unspecified (principal); K04.7 Periapical abscess without sinus; J44.9 Chronic obstructive pulmonary disease, unspecified; I10 Essential (primary) hypertension; E66.9 Obesity, unspecified; Z68.43 Body mass index [BMI] 50.0-59.9, adult
CPT/HCPCS: 99283

== ENCOUNTER 2021-02-14 14:06 | Emergency (ER) | payer MEDICAID ==
[~2021-02-14] VITALS: Ht 170 cm; Wt 136.0 kg
[~2021-02-14 14:06] MED LIST changes: +LIDO20SO23 MM
[2021-02-14 14:15] VITALS: BP 163/113
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
[2021-02-14] MEDS ORDERED: IBUPROFEN 600 MG (MOTRIN) TAB PO ONE (14:45)
== END 2021-02-14 15:58 | disposition home or self-care (01) ==
LOC: EDUNIT# 14:06 → ER 14:08
DX: U07.1 COVID-19 (principal); J44.9 Chronic obstructive pulmonary disease, unspecified; I10 Essential (primary) hypertension; E66.9 Obesity, unspecified; Z68.42 Body mass index [BMI] 45.0-49.9, adult
CPT/HCPCS: 87636

== ENCOUNTER 2021-09-19 18:19 | Emergency (ER) | payer MEDICAID ==
[~2021-09-19] VITALS: Ht 180 cm; Wt 158.7 kg
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
--- NOTE | 2021-09-19 19:31 | Diagnostic Imaging Report ---
INDICATION: Left big toe pain. COMPARISON: None. FINDINGS: 3 views of the right foot demonstrate no acute fracture or dislocation. There are no focal osseous lesions. Joint spaces are well maintained. No radiopaque foreign bodies are seen. IMPRESSION: No acute fractures or dislocations of the right foot. Dictated by: Dictated on workstation # [id number]
[2021-09-19] MEDS ORDERED: PRD50T PO (19:44)
[2021-09-19] MEDS ORDERED: NAPR-915 PO (19:44)
[2021-09-19 20:08] VITALS: BP 166/109
== END 2021-09-19 20:08 | disposition home or self-care (01) ==
LOC: EDUNIT# 18:19 → ER 18:21
DX: M79.671 Pain in right foot (principal); I10 Essential (primary) hypertension; E66.9 Obesity, unspecified; Z68.42 Body mass index [BMI] 45.0-49.9, adult
CPT/HCPCS: 73630

== ENCOUNTER 2022-02-22 22:16 | Emergency (ER) | payer MEDICAID ==
[~2022-02-22] VITALS: Ht 155 cm; Wt 136.0 kg
[~2022-02-22 22:16] MED LIST changes: +NAPR-915 PO; +PRD50T PO
[2022-02-22] MEDS ORDERED: KETOROLAC 15 MG/ML VIAL IM ONE (22:30)
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
[2022-02-22] MEDS ORDERED: INDO50CA82 PO (22:45)
[2022-02-22 23:00] VITALS: BP 154/104
--- NOTE | 2022-02-23 08:06 | Diagnostic Imaging Report ---
ANKLE 3 VIEW RIGHT INDICATION: Ankle pain and swelling COMPARISON: None available. TECHNIQUE: 3 views of the right ankle FINDINGS: No acute fracture. Well-corticated ossific fragment at the tip of the medial malleolus is likely due to old ligamentous injury. A large os peroneum is present. Moderate-sized plantar and small dorsal calcaneal spurs. No osteochondral lesion. Alignment is normal. IMPRESSION: No acute osseous abnormality. Dictated by: Dictated on workstation # [id number]
== END 2022-02-22 23:01 | disposition home or self-care (01) ==
LOC: EDUNIT# 22:16 → ER FS 22:18
DX: M25.571 Pain in right ankle and joints of right foot (principal); E66.9 Obesity, unspecified; Z68.43 Body mass index [BMI] 50.0-59.9, adult; Z28.310 Unvaccinated for COVID-19
CPT/HCPCS: 73610